=== PATIENT | male | born 1935 | race Caucasian/White ===

== ENCOUNTER 2018-01-22 05:01 | Inpatient (IN) | payer MEDICARE ==
[2018-01-18 16:44] LABS: BASOPHILS # (AUTO) 0.1 (0.0-0.1); BASOPHILS % 0.8 % (0.0-1.0); HEMATOCRIT 35.8 % (38.2-49.6); HEMOGLOBIN 12.2 g/dL (14.0-18.0); LYMPHOCYTES # (AUTO) 1.6 (1.0-3.2); LYMPHOCYTES % 18.6 % (18.0-39.1); MEAN CORPUSCULAR HEMOGLOBIN 32.8 pg (28-32); MEAN CORPUSCULAR HGB CONC 34.1 g/dL (31-35); MEAN CORPUSCULAR VOLUME 96.2 fL (81-99); MONOCYTES % 12.3 % (4.4-11.3); NEUTROPHILS # (AUTO) 5.7 (2.1-6.9); NEUTROPHILS % 67.6 % (38.7-80.0); PLATELET COUNT 130 x10e3/uL (140-360); RED BLOOD COUNT 3.72 x10e6/uL (4.3-5.7); RED CELL DISTRIBUTION WIDTH 15.9 % (11.7-14.4)
[2018-01-18 16:56] LABS: ANION GAP 16.5 mmol/L (8-16); CREATININE, SERUM 1.88 mg/dL (0.72-1.25); POTASSIUM 3.5 mmol/L (3.5-5.1)
--- NOTE | 2018-01-18 17:19 | Diagnostic Imaging Report ---
PROCEDURE: Frontal and lateral views of the chest. COMPARISON: Chest radiograph from 02/07/2017 INDICATIONS: PREOP CXR FINDINGS: Lines/tubes: Left chest wall biventricular pacemaker with leads in the expected positions. Lungs: Nonspecific basilar opacities which appear stable. Pleura: Calcified pleural plaques, unchanged. A small right pleural effusion may be present. Heart and mediastinum: Mild cardiomegaly, unchanged. Bones: No acute bony abnormality. IMPRESSION: Mild cardiomegaly. Nonspecific basilar opacities which could represent edema or scarring. A small right pleural effusion may be present. Calcified pleural plaques are unchanged. Dictated by: Nehemiah Perdue M.D. on 01/18/2018 at 17:24 Electronically approved by: Nehemiah Perdue M.D. on 01/18/2018 at 17:24
[~2018-01-22] VITALS: Ht 188 cm; Wt 86.2 kg
[2018-01-22] VITALS (30 sets, daily range): BP systolic 80–120; BP diastolic 55–71
[~2018-01-22 05:01] MED LIST: ALDACTONE25 MG PO; ALLOPURINOL100 MG PO; AMBIEN10 MG PO; AMILORIDE HCL-1 EACH PO; ASPIRIN EC81 MG PO; CARVEDILOL12.5 MG PO; CITALOPRAM HBR10 MG PO; COUMADIN3 MG PO; FERROUS SULFAT325 M1 PO; FEXOFENADINE H180 MG PO; FISH OIL 1,0001 EAC2 PO; FLOMAX0.4 MG PO; GABAPENTIN600 MG PO; LANOXIN125 MCG PO; LASIX40 MG PO; LEVAQUIN500 MG PO; LOSARTAN POTASS50 MG PO; MEDROL4 MG/DOSE-; METOLAZONE5 MG PO; MSM1000 M1 PO; PACERONE200 MG PO; POTASSIUM CHLO20 ME1 PO; SIMVASTATIN40 MG PO; VITAMIN D1000 UNI1 PO; [UNRECOGNIZED DRUG - OTHER] PO
[2018-01-22 06:13] LABS: INR 1.66; PROTHROMBIN TIME 18.4 seconds (11.9-14.5)
[2018-01-22] MEDS ORDERED: CEFTRIAXONE SOD 1 GM VIAL ONE (06:37)
[2018-01-22] MEDS ORDERED: GENTAMICIN 80MG/NS 100 ML 200 ML IV ONE (06:37)
[2018-01-22] MEDS ORDERED: IOPAMIDOL 300MG/ML 50ML INFUS..BTL IV ONE (06:55)
[2018-01-22] MEDS ORDERED: FENTANYL CITRATE/PF 100MCG/2 ML INJ ONE ×2 (09:31→15:54)
[2018-01-22] MEDS ORDERED: DIPHENHYDRAMINE HCL 25 MG CAP PO PRN (09:45)
[2018-01-22 10:31] LABS: HEMATOCRIT 24.8 % (38.2-49.6); HEMOGLOBIN 8.2 g/dL (14.0-18.0)
[2018-01-22 11:40] LABS: BASOPHILS % 0.5 % (0.0-1.0); HEMATOCRIT 21.5 % (38.2-49.6); LYMPHOCYTES # (AUTO) 0.7 (1.0-3.2); LYMPHOCYTES % 9.1 % (18.0-39.1); MEAN CORPUSCULAR HEMOGLOBIN 32.4 pg (28-32); MEAN CORPUSCULAR HGB CONC 32.6 g/dL (31-35); MEAN CORPUSCULAR VOLUME 99.5 fL (81-99); MONOCYTES # (AUTO) 0.3 (0.2-0.8); MONOCYTES % 3.6 % (4.4-11.3); NEUTROPHILS % 85.9 % (38.7-80.0); PLATELET COUNT 113 x10e3/uL (140-360); RED BLOOD COUNT 2.16 x10e6/uL (4.3-5.7); RED CELL DISTRIBUTION WIDTH 16.1 % (11.7-14.4)
[2018-01-22 11:48] LABS: INR 2.3
[2018-01-22 11:50] LABS: PROTHROMBIN TIME 23.8 seconds (11.9-14.5)
[2018-01-22] MEDS ORDERED: SODIUM CHLORIDE 0.9% 500ML 500 ML ONE ×2 (11:51→13:43)
[2018-01-22] MEDS ORDERED: PHYTONADIONE 10 MG/ML AMP SQ ONE (13:45)
--- NOTE | 2018-01-22 15:20 | Operative Report ---
DATE OF PROCEDURE: January 22, 2018 PREOPERATIVE DIAGNOSES 1. Severe obstructive BPH. 2. Recurrent urinary tract infections. POSTOPERATIVE DIAGNOSES 1. Severe obstructive BPH. 2. Recurrent urinary tract infections. PROCEDURES PERFORMED 1. Cystourethroscopy with bilateral ureteral catheterization and retrograde ureteropyelography (separate procedure performed for the urinary tract infection). 2. Interpretation of retrograde ureteropyelography. 3. Supervision of fluoroscopy. No radiologist present. 4. Cystourethroscopy with transurethral resection of the prostate utilizing the PlasmaBand. ANESTHESIA: General. ESTIMATED BLOOD LOSS: Inestimable. COMPLICATIONS: Persistent bleeding at the end of the procedure. CLINICAL SUMMARY: Merlin Cutler is an 82-year-old man with longstanding urological issues. The patient has had previous prostate biopsies at [facility] which were supposedly negative for cancer. The patient has had recurrent urinary tract infections. He has had decreased urinary force of stream with postvoid residuals larger than 100 mL. He has failed medical therapy and has elected to proceed with transurethral resection. He is aware of the risks of bleeding, infection, injury to adjacent structures, need for additional procedures and elected to proceed. In preparation for the procedure, the patient stopped his warfarin 7 days ago. OPERATIVE PROCEDURE IN DETAIL: Informed consent was verified. Merlin Cutler was properly identified, taken to the operating room, and placed on the operating table in supine position. Anesthesia was uneventfully begun. The patient was then carefully and gently repositioned in the dorsal lithotomy position with all pressure points well padded. His genitalia were prepared and draped in the usual sterile fashion. A 22.5-Chilean cystoscope sheath with a visual obturator in place was atraumatically inserted into the patient's urethra. It was guided down the unremarkable urethra through the prostate bed that was significant for trilobar prostatic hypertrophy with an intravesical median lobe and visual obstruction. Grade 2 to 3 trabeculations were noted. There were no suspicious lesions. There were no tumors. There were no stones. An 8-Chilean catheter was used to cannulate each ureter, and retrograde ureteropyelography was performed. Interpretation of retrograde ureteropyelography: Contrast was instilled in retrograde fashion bilaterally. There was J-hooking noted bilaterally. Both ureteral orifices were displaced cephalad and laterally. This is, of course, the result of large BPH pushing the bladder in a cephalad direction. There was no hydronephrosis. There was ureteral tortuosity present. Unobstructed drainage was observed fluoroscopically, although drainage from both upper collecting systems appeared to be slower than normal. This may be attributed to the partial ureteral obstruction caused by the thickened bladder. We atraumatically placed with a visual obturator the continuous-flow resectoscope sheath and utilized the bipolar saline TURP set and utilized the PlasmaBand electrode. We proceeded with performing a transurethral resection of the prostate. We first resected the median lobe, taking care to avoid injury to the ureteral orifices. We then resected both lateral lobes from the bladder neck to but never past the verumontanum. Resection was carried out down to the surgical capsule in most parts of the prostate. It seemed as we were nearing the end of our resection, there seemed to be more bleeding than one would expect normally. There were no specific blood vessels that were bleeding, but there was a generalized ooze from the entire prostatic fossa. We tried multiple maneuvers including increasing the electrocautery and trying to coagulate in a systematic fashion the prostate bed, but this it did not stop the bleeding. Therefore, I made the decision to end the procedure at this point following evacuation of prostate chips to the best of my ability with the current bleeding. I tried to ensure that all prostate chips were removed. A 24-Chilean hematuria catheter was then placed, and 60 mL of water were placed into the 30-mL balloon. Continuous irrigation was begun. Manual irrigation was performed repeatedly. There was no clotting of the efflux, and I did not obtain any additional chips, but the bleeding appeared to be too significant to allow the patient to be discharged. We will, therefore, plan to admit the patient on continuous bladder irrigation. We will have the patient on antibiotics and analgesics. We will have the nurses manually irrigate the catheter as needed. We also will check the patient's blood count in the recovery room and make further assessments and plans following that data. The prostate chips were sent for histopathological analysis. Job#: [id number] cc:MORGAN HENAO MD
[2018-01-22] MEDS ORDERED: PHYTONADIONE 10 MG/ML AMP SQ SCH (18:00)
[2018-01-22] MEDS ORDERED: ONDANSETRON HCL INJ 2 MG/ML VIAL ONE (18:18)
[2018-01-22] MEDS ORDERED: SEVOFLURANE INHAL SOLN 250 ML PEN BTL ONE (18:18)
[2018-01-22] MEDS ORDERED: PHENYLEPHRINE HCL 1% 10 MG/ML VIAL ONE (18:18)
[2018-01-22] MEDS ORDERED: EPHEDRINE SULFATE INJ 50 MG/10 ML SYR ONE (18:18)
[2018-01-22] MEDS ORDERED: ETOMIDATE 2 MG/ML 10 ML INJ IV ONE (18:18)
[2018-01-22] MEDS ORDERED: LIDOCAINE HCL 2% LOCAL INJ 5 ML SDV VIAL INJ ONE (18:18)
[2018-01-22] MEDS: DOCUSATE SODIUM 100 MG CAP PO SCH (19:06)
[2018-01-22] MEDS: D5.45%NS/KCL 20MEQ 1,000 ML IV SCH ×2 (19:06→19:17)
[2018-01-22] MEDS ORDERED: SODIUM CHLORIDE 0.9% 250ML 250 ML ONE (19:45)
[2018-01-22 23:47] LABS: BASOPHILS % 0.1 % (0.0-1.0); HEMATOCRIT 25.5 % (38.2-49.6); HEMOGLOBIN 8.5 g/dL (14.0-18.0); LYMPHOCYTES # (AUTO) 0.9 (1.0-3.2); LYMPHOCYTES % 7.6 % (18.0-39.1); MEAN CORPUSCULAR HEMOGLOBIN 30.7 pg (28-32); MEAN CORPUSCULAR HGB CONC 33.3 g/dL (31-35); MEAN CORPUSCULAR VOLUME 92.1 fL (81-99); MONOCYTES % 8.5 % (4.4-11.3); NEUTROPHILS # (AUTO) 9.4 (2.1-6.9); PLATELET COUNT 121 x10e3/uL (140-360); RED BLOOD COUNT 2.77 x10e6/uL (4.3-5.7); RED CELL DISTRIBUTION WIDTH 17.2 % (11.7-14.4)
[2018-01-22 23:59] LABS: INR 1.61
[2018-01-23] VITALS (91 sets, daily range): BP systolic 77–132; BP diastolic 37–89
[2018-01-23] LABS: PARTIAL THROMBOPLASTIN TIME 32.4 seconds (23.8-35.5)
[2018-01-23 00:07] LABS: ALBUMIN 3.1 g/dL (3.5-5.0); ALBUMIN/GLOBULIN RATIO 1.6 (0.8-2.0); ANION GAP 12.8 mmol/L (8-16); CALCIUM 7.8 mg/dL (8.4-10.2); CREATININE, SERUM 1.53 mg/dL (0.72-1.25); MAGNESIUM 1.8 MG/DL (1.3-2.1); POTASSIUM 4.8 mmol/L (3.5-5.1)
[2018-01-23] MEDS: ZOLPIDEM TARTRATE 5 MG TAB PO PRN ×2 (00:45→22:00)
[2018-01-23] MEDS: CALCIUM CARBONATE 500 MG CHEWABLE TABS PO SCH ×4 (00:45→22:00)
[2018-01-23] MEDS: D5.45%NS/KCL 20MEQ 1,000 ML IV SCH (03:25)
[2018-01-23 05:43] LABS: BASOPHILS % 0.2 % (0.0-1.0); HEMATOCRIT 24.2 % (38.2-49.6); HEMOGLOBIN 7.9 g/dL (14.0-18.0); LYMPHOCYTES # (AUTO) 1.2 (1.0-3.2); LYMPHOCYTES % 10.6 % (18.0-39.1); MEAN CORPUSCULAR HEMOGLOBIN 30.5 pg (28-32); MEAN CORPUSCULAR HGB CONC 32.6 g/dL (31-35); MEAN CORPUSCULAR VOLUME 93.4 fL (81-99); MONOCYTES # (AUTO) 1.3 (0.2-0.8); MONOCYTES % 11.3 % (4.4-11.3); NEUTROPHILS # (AUTO) 8.6 (2.1-6.9); NEUTROPHILS % 77.2 % (38.7-80.0); PLATELET COUNT 105 x10e3/uL (140-360); RED BLOOD COUNT 2.59 x10e6/uL (4.3-5.7); RED CELL DISTRIBUTION WIDTH 17.4 % (11.7-14.4)
[2018-01-23 06:12] LABS: ANION GAP 11.1 mmol/L (8-16); CALCIUM 7.8 mg/dL (8.4-10.2); CREATININE, SERUM 1.45 mg/dL (0.72-1.25); POTASSIUM 5.1 mmol/L (3.5-5.1)
[2018-01-23] MEDS: DOCUSATE SODIUM 100 MG CAP PO SCH ×2 (08:15→16:00)
[2018-01-23] MEDS: CEFTRIAXONE SOD 1 GM VIAL IV SCH (08:15)
[2018-01-23] MEDS: DEXTROSE 5%/0.45% SOD CHL 1,000 ML IV SCH ×2 (08:36→16:00)
--- NOTE | 2018-01-23 09:58 | Consultation ---
DATE OF CONSULTATION: January 23, 2018 CARDIOLOGY CONSULTATION REQUESTING PHYSICIAN: Dr. Arteaga REASON FOR CONSULTATION: CAD with ICD. HPI: This is a pleasant, 82-year-old male that presented status post TURP. He has a history of CAD with biventricular ICD, and cardiology was consulted for management. He denied any chest pain, any palpitations, any dizziness, any diaphoresis or headache. PAST MEDICAL HISTORY: CAD, COPD, tremors, Afib, hyperlipidemia, depression, gout, BPH, CKD, cardiomyopathy, systolic CHF, and anemia. PAST SURGICAL HISTORY: Biventricular ICD placement. 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 Recent transurethral resection of the prostate. FAMILY HISTORY: Positive for CAD. SOCIAL HISTORY: No smoking. No drinking. Lives at home with family. MEDICATIONS: See med list. ALLERGIES: HE IS ALLERGIC TO OFELIA INHIBITOR. REVIEW OF SYSTEMS: Negative except those mentioned above. He is status post TURP. PHYSICAL EXAMINATION VITAL SIGNS: Temperature 98, heart rate 80, blood pressure 100/63, respirations 16. Oxygen saturation 97% on room air. GENERAL: He is awake, alert and oriented times 3. HEENT: Mucous membranes are moist. NECK: Supple. LUNGS: Bilaterally clear to auscultation. CARDIOVASCULAR: S1 and S2 present but irregular. ABDOMEN: Soft. NEUROLOGIC: Intact. EXTREMITIES: No edema. LABORATORY DATA: Sodium 146, potassium 5.1, chloride 108, CO2 26. BUN 27, creatinine 1.45. Glucose 153. White blood cells 11.1. Hemoglobin 7.9. Hematocrit 24.2. Platelets 105. PT 18.0, PTT 32.4, INR 1.61. IMPRESSION 1. Status post transurethral resection of the prostate. 2. History of left ventricular dysfunction. 3. History of biventricular implantable cardioverter-defibrillator. 4. Chronic kidney disease. 5. Anemia. 6. History of myocardial infarction and coronary artery disease. 7. Hypotension. ASSESSMENT AND PLAN 1. He had a TURP done yesterday, and he is recovering good in ICU with continuous bladder irrigation. 2. He had an echo done last year with ejection fraction 15% to 20% with severe LV dysfunction. We will go ahead and get another echocardiogram to reassess the LV function. 3. He recently had his [employer] biventricular ICD interrogated with good function. 4. His potassium is 5.1 today. Will go ahead and remove the potassium from the IV fluids. 5. Hemoglobin is 7.9. Will keep an eye on his H and H and hold his blood pressure medication for now. 6. Further cardiac workup pending clinical course. Thank you for this consultation. Dictated by Garcia Kiran NP. Job#: [id number]
[2018-01-23] MEDS ORDERED: PHYTONADIONE 10 MG/ML AMP SQ ONE (10:35)
[2018-01-23] MEDS ORDERED: FUROSEMIDE INJ 10 MG/ML 4 ML VIAL IV ONE (18:00)
[2018-01-24] VITALS (50 sets, daily range): BP systolic 86–129; BP diastolic 44–94
[2018-01-24] MEDS: DEXTROSE 5%/0.45% SOD CHL 1,000 ML IV SCH ×3 (02:42→15:39)
[2018-01-24 05:22] LABS: BASOPHILS # (AUTO) 0.1 (0.0-0.1); BASOPHILS % 0.5 % (0.0-1.0); HEMATOCRIT 24.2 % (38.2-49.6); LYMPHOCYTES # (AUTO) 1.9 (1.0-3.2); MEAN CORPUSCULAR HEMOGLOBIN 31.1 pg (28-32); MEAN CORPUSCULAR HGB CONC 33.1 g/dL (31-35); MEAN CORPUSCULAR VOLUME 94.2 fL (81-99); MONOCYTES # (AUTO) 1.4 (0.2-0.8); MONOCYTES % 11.4 % (4.4-11.3); NEUTROPHILS # (AUTO) 8.5 (2.1-6.9); NEUTROPHILS % 71.6 % (38.7-80.0); PLATELET COUNT 100 x10e3/uL (140-360); RED BLOOD COUNT 2.57 x10e6/uL (4.3-5.7); RED CELL DISTRIBUTION WIDTH 17.2 % (11.7-14.4)
[2018-01-24 05:40] LABS: INR 1.33; PROTHROMBIN TIME 15.5 seconds (11.9-14.5)
[2018-01-24 05:41] LABS: PARTIAL THROMBOPLASTIN TIME 30.5 seconds (23.8-35.5)
[2018-01-24 05:50] LABS: ANION GAP 12.1 mmol/L (8-16); CALCIUM 8.3 mg/dL (8.4-10.2); CREATININE, SERUM 1.26 mg/dL (0.72-1.25); POTASSIUM 4.1 mmol/L (3.5-5.1)
[2018-01-24] MEDS: FERROUS SULFATE 325 MG TAB PO SCH (09:00)
[2018-01-24] MEDS: CALCIUM CARBONATE 500 MG CHEWABLE TABS PO SCH ×3 (09:00→21:09)
[2018-01-24] MEDS: DIGOXIN 0.125 MG TAB PO SCH (09:00)
[2018-01-24] MEDS ORDERED: FERROUS SULFATE 325 MG TAB PO SCH (09:00)
[2018-01-24] MEDS: FUROSEMIDE 40 MG TAB PO SCH ×2 (09:00→16:36)
[2018-01-24] MEDS: CEFTRIAXONE SOD 1 GM VIAL IV SCH (09:00)
[2018-01-24] MEDS ORDERED: SIMVASTATIN 40 MG TAB PO SCH (09:00)
[2018-01-24] MEDS: DOCUSATE SODIUM 100 MG CAP PO SCH ×2 (09:00→16:36)
[2018-01-24] MEDS ORDERED: DIGOXIN INJ 0.25 MG/ML 2 ML AMP IV ONE (11:45)
--- NOTE | 2018-01-24 14:13 | Diagnostic Imaging Report ---
PROCEDURE: CHEST SINGLE (PORTABLE) COMPARISON: Patients [facility], DX, CHEST SINGLE (PORTABLE), 02/07/2017, 16:55. [facility], DX, CHEST 2 VIEWS, 01/18/2018, 16:19. INDICATIONS: SHORTNESS OF BREATH FINDINGS: LUNGS/PLEURA: A small right pleural effusion has increased in size with underlying airspace opacities either atelectasis or pneumonia. The left lateral costophrenic angle is blunted suggestive of effusion. No pneumothorax. The lungs are hyperinflated at baseline. A central left upper lobe opacity grossly stable suggestive of calcified pleural plaque. The pulmonary arteries are enlarged consistent with pulmonary artery hypertension. There is mild left basilar atelectasis. No interstitial edema. HEART \T\ MEDIASTINUM: Stable cardiomegaly. Pacemaker/defibrillator wires are intact.. BONES \T\ SOFT TISSUES: No acute findings. CONCLUSION: 1. Enlarging right pleural effusion. New small left pleural effusion. 2. Stable cardiomegaly. No evidence of CHF. 3. Enlarged pulmonary arteries consistent with pulmonary artery hypertension. Dictated by: Rickie Kaye M.D. on 01/24/2018 at 14:17 Electronically approved by: Rickie Kaye M.D. on 01/24/2018 at 14:17
[2018-01-24] MEDS ORDERED: FUROSEMIDE INJ 10 MG/ML 2 ML VIAL IV ONE ×2 (14:30→15:30)
[2018-01-24 15:25] LABS: ABG PCO2 33 mmHg (41-51); ABG PH 7.45 (7.31-7.41); ABG PO2 51 mmHg (80-105)
[2018-01-24 15:26] LABS: ABG HCO3 23 mmol/L (23-28)
--- NOTE | 2018-01-24 17:52 | Diagnostic Imaging Report ---
PROCEDURE:US CHEST (INCL MEDIASTINUM) COMPARISON:Patients [facility], DX, CHEST SINGLE (PORTABLE), 01/24/2018, 13:39. INDICATIONS:ENLARGING PLEURAL EFFUSION FINDINGS: Moderate sized right and left pleural effusions with bibasilar atelectasis. No septations or loculations are appreciated. IMPRESSION: As above. Dictated by: Rickie Kaye M.D. on 01/24/2018 at 17:58 Electronically approved by: Rickie Kaye M.D. on 01/24/2018 at 17:58
[2018-01-24] MEDS ORDERED: METOLAZONE 5 MG TAB PO ONE (18:30)
--- NOTE | 2018-01-24 19:57 | Consultation ---
DATE OF CONSULTATION: PULMONARY CONSULTATION This is a patient of Dr. Brien Arteaga, Dr. Canas and Dr. Dc Freire. This charming, but unfortunate, 82-year-old gentleman underwent TURP on January 21 for recurrent urinary infections and outlet obstruction. The procedure was apparently complicated by some bleeding. He was short of breath following the procedure. He has a history of cardiomyopathy, history of chronic ischemia with NV and arrest in 1996. He has had a defibrillator, which has been firing frequently. In the past, he has a history of coronary disease, COPD and atrial fibrillation. HE IS ALLERGIC TO OFELIA INHIBITORS. His medications have included allopurinol, aspirin, Coreg, vitamin D, Cherry, metolazone, potassium, Flomax and warfarin as well as Ambien. Ex-smoker, smoked a pack a day for many years, but quit 54 years ago. 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 He has had amputation of 1 finger. Born in , [place]. PHYSICAL EXAMINATION GENERAL: He is a well-developed, white male, looking his stated age. VITALS: Temperature 98.3, pulse 90, respirations 18, blood pressure 113/70. HEAD: Normocephalic and atraumatic. EYES: The extraocular movements are intact. LUNGS: Bilateral rales. Dullness at left base. HEART: Regular rhythm. ABDOMEN: Nontender. EXTREMITIES: Stasis changes. IMPRESSION: Congestive heart failure. PLAN: Diuresis. Resume metolazone. BiPAP if needed. Possible thoracentesis. Thank you for this kind referral. Job#: [id number]
[2018-01-24] MEDS: SIMVASTATIN 40 MG TAB PO SCH (21:09)
[2018-01-24] MEDS: ZOLPIDEM TARTRATE 5 MG TAB PO PRN (21:09)
[2018-01-25] VITALS (8 sets, daily range): BP systolic 93–109; BP diastolic 56–63
[2018-01-25] MEDS: DEXTROSE 5%/0.45% SOD CHL 1,000 ML IV SCH (00:30)
[2018-01-25] MEDS: ACETAMINOPHEN/CODEINE 300MG - 30MG TAB PO PRN (00:41)
[2018-01-25] MEDS: GABAPENTIN 300 MG CAP PO SCH ×4 (04:00→21:18)
[2018-01-25 04:41] LABS: BASOPHILS # (AUTO) 0.1 (0.0-0.1); BASOPHILS % 0.5 % (0.0-1.0); HEMATOCRIT 24.1 % (38.2-49.6); HEMOGLOBIN 7.8 g/dL (14.0-18.0); LYMPHOCYTES # (AUTO) 1.6 (1.0-3.2); LYMPHOCYTES % 14.9 % (18.0-39.1); MEAN CORPUSCULAR HEMOGLOBIN 30.4 pg (28-32); MEAN CORPUSCULAR HGB CONC 32.4 g/dL (31-35); MEAN CORPUSCULAR VOLUME 93.8 fL (81-99); MONOCYTES # (AUTO) 1.2 (0.2-0.8); MONOCYTES % 11.6 % (4.4-11.3); NEUTROPHILS # (AUTO) 7.6 (2.1-6.9); NEUTROPHILS % 72.5 % (38.7-80.0); PLATELET COUNT 117 x10e3/uL (140-360); RED BLOOD COUNT 2.57 x10e6/uL (4.3-5.7); RED CELL DISTRIBUTION WIDTH 16.7 % (11.7-14.4)
[2018-01-25 04:58] LABS: INR 1.35; PROTHROMBIN TIME 15.7 seconds (11.9-14.5)
[2018-01-25 05:11] LABS: ANION GAP 12.9 mmol/L (8-16); CALCIUM 8.7 mg/dL (8.4-10.2); CREATININE, SERUM 1.37 mg/dL (0.72-1.25)
[2018-01-25 05:21] LABS: POTASSIUM 2.9 mmol/L (3.5-5.1)
[2018-01-25] MEDS ORDERED: POTASSIUM CHLORIDE 20 MEQ TAB CR PO STA (05:27)
[2018-01-25] MEDS: CEFTRIAXONE SOD 1 GM VIAL IV SCH (07:30)
[2018-01-25] MEDS: DOCUSATE SODIUM 100 MG CAP PO SCH ×2 (09:00→17:15)
[2018-01-25] MEDS: METOLAZONE 5 MG TAB PO SCH (09:00)
[2018-01-25] MEDS: FUROSEMIDE 40 MG TAB PO SCH ×2 (09:00→17:16)
[2018-01-25] MEDS: FERROUS SULFATE 325 MG TAB PO SCH (09:00)
[2018-01-25] MEDS: CALCIUM CARBONATE 500 MG CHEWABLE TABS PO SCH ×3 (09:00→21:18)
[2018-01-25] MEDS: DIGOXIN 0.125 MG TAB PO SCH (09:00)
[2018-01-25] MEDS ORDERED: POTASSIUM CHLORIDE 20 MEQ TAB CR PO SCH (09:30)
--- NOTE | 2018-01-25 14:05 | Diagnostic Imaging Report ---
PROCEDURE: ULTRASOUND GUIDED THORACENTESIS COMPARISON: None. INDICATIONS:pleural effusion FINDINGS: After informed consent was obtained, the patient was placed in the sitting position and preliminary ultrasound of the posterior chest identified a safe route into the right pleural effusion. The overlying skin was prepped and draped in usual sterile fashion. Lidocaine 1% was used for local anesthesia. Under ultrasound guidance, a 5 Filipino Yueh needle was advanced into the pleural fluid, the catheter was advanced off the needle and connected to gravity drainage with subsequent evacuation of 1000 cc gris-colored fluid. Sonographic imaging after thoracentesis showed essentially complete evacuation of pleural fluid. The catheter was removed and a sterile, occlusive dressing was applied. The patient tolerated the procedure well and there were no immediate post-procedural complications. A post-thoracentesis chest radiograph will be obtained. CONCLUSION: Uncomplicated ultrasound-guided right thoracentesis with removal of 1000 cc gris-colored fluid. Specimen was submitted for laboratory analysis as requested by the referring clinical team. Dictated by: Cornell Ribeiro M.D. on 01/25/2018 at 14:10 Electronically approved by: Cornell Ribeiro M.D. on 01/25/2018 at 14:10
--- NOTE | 2018-01-25 14:15 | Diagnostic Imaging Report ---
PROCEDURE: CHEST XRAY POST PROCEDURE COMPARISON: 01/24/2018. INDICATIONS: POST THORACENTESIS FINDINGS: See conclusion CONCLUSION: Interval right thoracentesis with near-complete evacuation of right pleural effusion. No pneumothorax. Trace left pleural effusion persists. Otherwise stable appearance of the heart and lungs with cardiomegaly and enlargement of the central pulmonary arteries suggestive of pulmonary artery hypertension. Dictated by: Cornell Ribeiro M.D. on 01/25/2018 at 14:20 Electronically approved by: Cornell Ribeiro M.D. on 01/25/2018 at 14:20
[2018-01-25] MEDS: POTASSIUM CHLORIDE 10 MEQ TABCR PO SCH (17:15)
[2018-01-25] MEDS: ZOLPIDEM TARTRATE 5 MG TAB PO PRN (21:18)
[2018-01-25] MEDS: SIMVASTATIN 40 MG TAB PO SCH (21:18)
[2018-01-26] VITALS (7 sets, daily range): BP systolic 95–113; BP diastolic 55–78
[2018-01-26 06:07] LABS: BASOPHILS % 0.5 % (0.0-1.0); HEMATOCRIT 25.5 % (38.2-49.6); HEMOGLOBIN 8.4 g/dL (14.0-18.0); LYMPHOCYTES # (AUTO) 1.7 (1.0-3.2); LYMPHOCYTES % 20.5 % (18.0-39.1); MEAN CORPUSCULAR HEMOGLOBIN 31.3 pg (28-32); MEAN CORPUSCULAR HGB CONC 32.9 g/dL (31-35); MEAN CORPUSCULAR VOLUME 95.1 fL (81-99); MONOCYTES # (AUTO) 0.9 (0.2-0.8); MONOCYTES % 11.1 % (4.4-11.3); NEUTROPHILS # (AUTO) 5.5 (2.1-6.9); NEUTROPHILS % 67.1 % (38.7-80.0); PLATELET COUNT 109 x10e3/uL (140-360); RED BLOOD COUNT 2.68 x10e6/uL (4.3-5.7)
[2018-01-26 06:26] LABS: ANION GAP 11.8 mmol/L (8-16); CALCIUM 8.8 mg/dL (8.4-10.2); CREATININE, SERUM 1.52 mg/dL (0.72-1.25)
[2018-01-26 06:35] LABS: POTASSIUM 2.8 mmol/L (3.5-5.1)
[2018-01-26] MEDS ORDERED: POTASSIUM CHLORIDE 20 MEQ TAB CR PO STA (06:38)
[2018-01-26] MEDS: POTASSIUM CHLORIDE 10 MEQ TABCR PO SCH ×2 (07:49→16:45)
[2018-01-26] MEDS: METOLAZONE 5 MG TAB PO SCH (09:00)
[2018-01-26] MEDS: DIGOXIN 0.125 MG TAB PO SCH (09:06)
[2018-01-26] MEDS: FERROUS SULFATE 325 MG TAB PO SCH (09:06)
[2018-01-26] MEDS: DOCUSATE SODIUM 100 MG CAP PO SCH ×2 (09:06→16:45)
[2018-01-26] MEDS: CEFTRIAXONE SOD 1 GM VIAL IV SCH (09:06)
[2018-01-26] MEDS: FUROSEMIDE 40 MG TAB PO SCH ×2 (09:06→16:45)
[2018-01-26] MEDS: CALCIUM CARBONATE 500 MG CHEWABLE TABS PO SCH ×3 (09:07→21:00)
[2018-01-26] MEDS: GABAPENTIN 300 MG CAP PO SCH ×3 (09:07→20:35)
[2018-01-26] MEDS ORDERED: POTASSIUM CHLORIDE 20 MEQ TAB CR PO ONE (10:30)
[2018-01-26 13:17] LABS: BODY FLUID APPEARANCE SL.CLOUDY; BODY FLUID COLOR STRAW; BODY FLUID TYPE PLEURAL
[2018-01-26 13:33] LABS: RBC,BODY FLUID 985 cells/uL; WBC,BODY FLUID 292 cells/uL
[2018-01-26] MEDS: ACETAMINOPHEN/CODEINE 300MG - 30MG TAB PO PRN (14:16)
[2018-01-26 14:27] LABS: LYMPHOCYTES,BODY FLUID 83 %; MONO/MACROPHG,BODY FLUID 7 %; NEUTROPHILS,BODY FLUID 10 %
[2018-01-26] MEDS: SIMVASTATIN 40 MG TAB PO SCH (21:00)
[2018-01-26] MEDS: ZOLPIDEM TARTRATE 5 MG TAB PO PRN (21:18)
[2018-01-27] VITALS: BP 90/52
[2018-01-27] MEDS: ACETAMINOPHEN/CODEINE 300MG - 30MG TAB PO PRN (00:02)
[2018-01-27 04:00] VITALS: BP 99/55
[2018-01-27 05:54] LABS: BASOPHILS % 0.4 % (0.0-1.0); EOSINOPHILS % 0.1 % (0.0-6.0); HEMATOCRIT 25.7 % (38.2-49.6); HEMOGLOBIN 8.3 g/dL (14.0-18.0); LYMPHOCYTES # (AUTO) 1.7 (1.0-3.2); LYMPHOCYTES % 17.6 % (18.0-39.1); MEAN CORPUSCULAR HEMOGLOBIN 31.2 pg (28-32); MEAN CORPUSCULAR HGB CONC 32.3 g/dL (31-35); MEAN CORPUSCULAR VOLUME 96.6 fL (81-99); MONOCYTES # (AUTO) 1.2 (0.2-0.8); MONOCYTES % 12.3 % (4.4-11.3); NEUTROPHILS # (AUTO) 6.8 (2.1-6.9); NEUTROPHILS % 68.7 % (38.7-80.0); PLATELET COUNT 116 x10e3/uL (140-360); RED BLOOD COUNT 2.66 x10e6/uL (4.3-5.7); RED CELL DISTRIBUTION WIDTH 17.4 % (11.7-14.4)
[2018-01-27 06:14] LABS: ANION GAP 13.8 mmol/L (8-16); CALCIUM 8.8 mg/dL (8.4-10.2); CREATININE, SERUM 1.61 mg/dL (0.72-1.25)
[2018-01-27 06:15] LABS: POTASSIUM 2.8 mmol/L (3.5-5.1)
[2018-01-27] MEDS ORDERED: POTASSIUM CHLORIDE 20MEQ/100ML 200 ML IV ONE (06:30)
[2018-01-27] MEDS ORDERED: POTASSIUM CHLORIDE 20MEQ/100ML 100 ML IV ONE ×2 (06:45→08:45)
[2018-01-27] MEDS ORDERED: SODIUM CHLORIDE 0.9% 250ML 250 ML ONE ×2 (07:13→12:20)
[2018-01-27] MEDS: METOLAZONE 5 MG TAB PO SCH (08:27)
[2018-01-27] MEDS: POTASSIUM CHLORIDE 10 MEQ TABCR PO SCH ×2 (08:27→16:35)
[2018-01-27] MEDS: DIGOXIN 0.125 MG TAB PO SCH (08:42)
[2018-01-27] MEDS: FERROUS SULFATE 325 MG TAB PO SCH (08:42)
[2018-01-27] MEDS: CEFTRIAXONE SOD 1 GM VIAL IV SCH (08:42)
[2018-01-27] MEDS: CALCIUM CARBONATE 500 MG CHEWABLE TABS PO SCH ×3 (08:42→21:12)
[2018-01-27] MEDS: DOCUSATE SODIUM 100 MG CAP PO SCH ×2 (08:42→16:38)
[2018-01-27] MEDS: GABAPENTIN 300 MG CAP PO SCH ×3 (08:42→21:12)
[2018-01-27] MEDS: FUROSEMIDE 40 MG TAB PO SCH ×2 (08:42→16:38)
[2018-01-27 10:37] VITALS: BP 90/53
[2018-01-27] MEDS ORDERED: POTASSIUM CHLORIDE 20 MEQ TAB CR PO ONE (11:30)
[2018-01-27] MEDS ORDERED: POTASSIUM CHLORIDE 20 MEQ TAB CR PO SCH (12:00)
[2018-01-27 16:54] VITALS: BP 93/55
[2018-01-27 20:00] VITALS: BP 95/63
[2018-01-27] MEDS: SIMVASTATIN 40 MG TAB PO SCH (21:12)
[2018-01-27] MEDS: ZOLPIDEM TARTRATE 5 MG TAB PO PRN (21:18)
[2018-01-28] VITALS (8 sets, daily range): BP systolic 93–106; BP diastolic 50–58
[2018-01-28 05:05] LABS: BASOPHILS % 0.4 % (0.0-1.0); EOSINOPHILS % 0.1 % (0.0-6.0); HEMOGLOBIN 8.3 g/dL (14.0-18.0); LYMPHOCYTES # (AUTO) 1.9 (1.0-3.2); LYMPHOCYTES % 21.2 % (18.0-39.1); MEAN CORPUSCULAR HEMOGLOBIN 30.6 pg (28-32); MEAN CORPUSCULAR HGB CONC 31.9 g/dL (31-35); MEAN CORPUSCULAR VOLUME 95.9 fL (81-99); MONOCYTES # (AUTO) 1.2 (0.2-0.8); MONOCYTES % 13.4 % (4.4-11.3); NEUTROPHILS # (AUTO) 5.7 (2.1-6.9); NEUTROPHILS % 63.8 % (38.7-80.0); PLATELET COUNT 119 x10e3/uL (140-360); RED BLOOD COUNT 2.71 x10e6/uL (4.3-5.7); RED CELL DISTRIBUTION WIDTH 17.4 % (11.7-14.4)
[2018-01-28 05:32] LABS: ANION GAP 12.8 mmol/L (8-16); CALCIUM 8.8 mg/dL (8.4-10.2); CREATININE, SERUM 1.42 mg/dL (0.72-1.25)
[2018-01-28 06:03] LABS: POTASSIUM 2.8 mmol/L (3.5-5.1)
[2018-01-28] MEDS ORDERED: POTASSIUM CHLORIDE 20 MEQ TAB CR PO ONE ×2 (06:40→10:45)
[2018-01-28] MEDS: FERROUS SULFATE 325 MG TAB PO SCH (08:40)
[2018-01-28] MEDS: FUROSEMIDE 40 MG TAB PO SCH ×2 (08:40→16:57)
[2018-01-28] MEDS: METOLAZONE 5 MG TAB PO SCH (08:40)
[2018-01-28] MEDS: GABAPENTIN 300 MG CAP PO SCH ×3 (08:40→21:52)
[2018-01-28] MEDS: POTASSIUM CHLORIDE 10 MEQ TABCR PO SCH ×2 (08:40→16:57)
[2018-01-28] MEDS: CEFTRIAXONE SOD 1 GM VIAL IV SCH (08:54)
[2018-01-28] MEDS: CALCIUM CARBONATE 500 MG CHEWABLE TABS PO SCH ×3 (08:54→21:52)
[2018-01-28] MEDS: DIGOXIN 0.125 MG TAB PO SCH (08:54)
[2018-01-28] MEDS: DOCUSATE SODIUM 100 MG CAP PO SCH ×2 (08:54→16:57)
[2018-01-28] MEDS: SIMVASTATIN 40 MG TAB PO SCH (21:52)
[2018-01-28] MEDS: ZOLPIDEM TARTRATE 5 MG TAB PO PRN (22:30)
[2018-01-29 00:40] VITALS: BP 102/58
[2018-01-29 01:15] VITALS: BP 102/58
[2018-01-29 04:00] VITALS: BP 95/64
[2018-01-29 05:26] LABS: BASOPHILS # (AUTO) 0.1 (0.0-0.1); BASOPHILS % 0.5 % (0.0-1.0); HEMATOCRIT 27.9 % (38.2-49.6); LYMPHOCYTES # (AUTO) 2.2 (1.0-3.2); LYMPHOCYTES % 21.8 % (18.0-39.1); MEAN CORPUSCULAR HEMOGLOBIN 30.7 pg (28-32); MEAN CORPUSCULAR HGB CONC 32.3 g/dL (31-35); MEAN CORPUSCULAR VOLUME 95.2 fL (81-99); MONOCYTES # (AUTO) 1.4 (0.2-0.8); MONOCYTES % 13.7 % (4.4-11.3); NEUTROPHILS # (AUTO) 6.4 (2.1-6.9); NEUTROPHILS % 62.7 % (38.7-80.0); PLATELET COUNT 154 x10e3/uL (140-360); RED BLOOD COUNT 2.93 x10e6/uL (4.3-5.7); RED CELL DISTRIBUTION WIDTH 17.3 % (11.7-14.4)
[2018-01-29 05:58] LABS: ALBUMIN 3.3 g/dL (3.5-5.0); ALBUMIN/GLOBULIN RATIO 1.1 (0.8-2.0); ANION GAP 15.8 mmol/L (8-16); CALCIUM 9.2 mg/dL (8.4-10.2); CREATININE, SERUM 1.46 mg/dL (0.72-1.25)
[2018-01-29 06:03] LABS: POTASSIUM 2.8 mmol/L (3.5-5.1)
[2018-01-29] MEDS ORDERED: POTASSIUM CHLORIDE 20 MEQ TAB CR PO NR ×2 (06:30→08:15)
[2018-01-29] MEDS: CEFTRIAXONE SOD 1 GM VIAL IV SCH (07:30)
[2018-01-29 07:58] VITALS: BP 97/52
[2018-01-29] MEDS: FERROUS SULFATE 325 MG TAB PO SCH (09:00)
[2018-01-29] MEDS: GABAPENTIN 300 MG CAP PO SCH (09:00)
[2018-01-29] MEDS: DOCUSATE SODIUM 100 MG CAP PO SCH (09:00)
[2018-01-29] MEDS: METOLAZONE 5 MG TAB PO SCH (09:00)
[2018-01-29] MEDS: FUROSEMIDE 40 MG TAB PO SCH (09:00)
[2018-01-29] MEDS ORDERED: POTASSIUM CHLORIDE 10 MEQ TABCR PO SCH (09:00)
[2018-01-29] MEDS: CALCIUM CARBONATE 500 MG CHEWABLE TABS PO SCH (09:00)
[2018-01-29] MEDS: DIGOXIN 0.125 MG TAB PO SCH (10:07)
[2018-01-29 12:19] VITALS: BP 95/60
[2018-01-29] MEDS ORDERED: WARFARIN SOD 3 MG TAB PO SCH (17:00)
== END 2018-01-29 15:09 | disposition home or self-care (01) | DRG 713 ==
LOC: OR 05:01 → PACU V 09:34 → ICU 17:25 → MED/SURG 01-24 17:11
PROVIDERS: ADMIT Internal Medicine; ATTEND Internal Medicine
PROC: 0VB08ZZ Excision of Prostate, Via Natural or Artificial Opening Endoscopic (ICD-10-PCS; principal; 2018-01-22 07:00)
PROC: 0W993ZX Drainage of Right Pleural Cavity, Percutaneous Approach, Diagnostic (ICD-10-PCS; 2018-01-25)
DX: N40.1 Benign prostatic hyperplasia with lower urinary tract symptoms (principal); I50.23 Acute on chronic systolic (congestive) heart failure; I13.0 Hypertensive heart and chronic kidney disease with heart failure and stage 1 through stage 4 chronic kidney disease, or unspecified chronic kidney disease; N18.3 Chronic kidney disease, stage 3 (moderate); N39.41 Urge incontinence; R39.14 Feeling of incomplete bladder emptying; R35.1 Nocturia; N50.0 Atrophy of testis; E29.1 Testicular hypofunction; Z87.442 Personal history of urinary calculi; I86.1 Scrotal varices; N32.81 Overactive bladder; I25.10 Atherosclerotic heart disease of native coronary artery without angina pectoris; Z95.810 Presence of automatic (implantable) cardiac defibrillator; J44.9 Chronic obstructive pulmonary disease, unspecified; D64.9 Anemia, unspecified; Z79.01 Long term (current) use of anticoagulants; D50.0 Iron deficiency anemia secondary to blood loss (chronic); G47.00 Insomnia, unspecified; E87.6 Hypokalemia
CPT/HCPCS: 32555; 36415; 36430; 36600; 71045; 71046; 74420; 74470; 76604; 80048; 80053; 82805; 83615; 83735; 84132; 84157; 85014; 85018; 85025; 85610; 85730; 86850; 86900; 86920; 87070; 87205; 88112; 88305; 89051; 93005; 93306; 96361; J0696; J1160; J1580; J1940; J2001; J2370; J2405; J3430; J3480; J7040; J7050; P9016; P9017; P9034

== ENCOUNTER → 2018-10-24 | Outpatient (CLI) | payer MEDICARE ==
[~2018-10-24] MED LIST changes: +REGADENOSON 0.4 MG/5 ML SYR IV ONE
--- NOTE | 2018-10-25 18:28 | Myoview Stress Test ---
DATE OF STUDY: 10/24/2018 10:12:00 Stress Test - Treadmill ONLY REASON FOR PROCEDURE: Congestive heart failure. STRESS SUMMARY: The patient underwent stress testing utilizing Lexiscan under the usual protocol. The patient's heart rate remained stable at 63 beats per minute at rest with mild increase to 75 beats per minute at stress. Blood pressure was 108/67 at rest and decreased to 102/67 at stress. The patient elicited no cardiac symptoms throughout the stress protocol. Baseline 12-lead electrocardiogram showed ventricular paced rhythm. There were no ST deviations or arrhythmias noted throughout the stress protocol. The patient received technetium-99m sestamibi at rest and stress. The images revealed a large, severe, fixed perfusion defect in the [id number]-mhdmly anterior apex, apical inferior and anteroseptal solo. Gated images revealed left ventricular ejection fraction less than 20%. CONCLUSIONS: 1. Normal clinical and hemodynamic Lexiscan stress test. 2. Inconclusive electrocardiogram stress test. 3. Abnormal myocardial perfusion imaging showing a large area of transmural scar in the mid to distal anterior, apex, apical inferior, and anteroseptal segments. 4. Abnormal left ventricular systolic function with an estimated ejection fraction less than 20%. DO MARISEL Barahona/DIVINEL /[id number]
== END ==
LOC: NM 09:37
PROVIDERS: ATTEND Internal Medicine Interventional Cardiology
DX: I50.22 Chronic systolic (congestive) heart failure (principal)
CPT/HCPCS: 78452; 93017; 93306; A9502; J2785

== ENCOUNTER 2018-12-14 15:34 | Emergency (ER) | payer MEDICARE ==
[~2018-12-14] VITALS: Ht 188 cm; Wt 86.2 kg
[~2018-12-14 15:34] MED LIST changes: -REGADENOSON 0.4 MG/5 ML SYR IV ONE
--- OUTSIDE RECORDS SUMMARY | 2018-12-14 15:37 | XMS REPORT | Continuity of Care Document ---
Author Author Sarah carballo [facility] Interface Address Unknown Phone Unavailable Problems Problem Status Onset Date Classification Date Reported Comments Source Encounter for screening for cardiovascular disorders 08/04/2017 11/06/2017 [facility] I73.9 - PERIPHERAL VASCULAR DISEASE, U Active 07/24/2017 [facility] Peripheral vascular disease, unspecified 11/06/[address] [facility] Medications Medication Details Route Status Patient Instructions Ordering Provider Order Date Source Allergies, Adverse Reactions, Alerts Substance Category Reaction Severity Reaction type Status Date Reported Comments Source Immunizations Immunization Date Given Site Status Last Updated Comments Source Results Order Name Results Value Reference Range Date Interpretation Comments Source Ext Lower Arterial Doppler bilat US Ext Lower Arterial Doppler bilat US EXAM: US BILATERAL LOWER EXTREMITY ARTERIAL DOPPLER DATE: 07/31/2017 12:46 PM [employer] INST[employer] INDICATION: - Z13.6 Encounter for screening for cardiovascular disorders,I73.9 Peripheral vascular disease, unspecified ADDITIONAL INFORMATION: None. COMPARISON: None. TECHNIQUE: Multiplanar grayscale, color Doppler and spectral Doppler ultrasound images of the bilateral lower extremity arteries. Segmental pressures were obtained and ankle/brachial indices were calculated. FINDINGS: Moderate atherosclerotic plaque is seen without any focal areas of narrowing or significantly elevated velocities to indicate hemodynamically significant stenosis. Right Extremity Waveforms: Common Femoral Artery: 66 cm/s triphasic Superficial Femoral Artery: 85, 77, 72 cm/s triphasic Popliteal Artery: 49, 39, and 45 cm/s triphasic Posterior Tibialis Artery: 74 cm/s triphasic Anterior Tibialis Artery: 48 cm/s triphasic Dorsalis Pedis Artery: 56 cm/s triphasic Left Extremity Waveforms: Common Femoral Artery: 84 cm/s triphasic Superficial Femoral Artery: 114, 82, 105 cm/s triphasic Popliteal Artery: 68, 52, 52 cm/s triphasic Posterior Tibialis Artery: 71 cm/s triphasic Anterior Tibialis Artery: 72 cm/s triphasic Dorsalis Pedis Artery: 55 cm/s triphasic Ankle Brachial Indices: Right SAYRA: 1.0 Left SAYRA: 0.9 IMPRESSION: 1. Mild to moderate scattered echogenic atherosclerotic plaque without high-grade stenosis. 2. Ankle brachial indices, as above. 07/31/2017 - - Read by: Mauro Martinez MD Dictated Date/time: 07/31/17 14:51 Electronically Signed by: Mauro Martinez MD 07/31/17 14:56 FINAL REPORT [facility] Ext Artery Single Level Bilat US Ext Artery Single Level Bilat US EXAM: US BILATERAL LOWER EXTREMITY ARTERIAL DOPPLER DATE: 07/31/2017 12:46 PM [employer] INDICATION: - Z13.6 Encounter for screening for cardiovascular disorders,I73.9 Peripheral vascular disease, unspecified ADDITIONAL INFORMATION: None. COMPARISON: None. TECHNIQUE: Multiplanar grayscale, color Doppler and spectral Doppler ultrasound images of the bilateral lower extremity arteries. Segmental pressures were obtained and ankle/brachial indices were calculated. FINDINGS: Moderate atherosclerotic plaque is seen without any focal areas of narrowing or significantly elevated velocities to indicate hemodynamically significant stenosis. Right Extremity Waveforms: Common Femoral Artery: 66 cm/s triphasic Superficial Femoral Artery: 85, 77, 72 cm/s triphasic Popliteal Artery: 49, 39, and 45 cm/s triphasic Posterior Tibialis Artery: 74 cm/s triphasic Anterior Tibialis Artery: 48 cm/s triphasic Dorsalis Pedis Artery: 56 cm/s triphasic Left Extremity Waveforms: Common Femoral Artery: 84 cm/s triphasic Superficial Femoral Artery: 114, 82, 105 cm/s triphasic Popliteal Artery: 68, 52, 52 cm/s triphasic Posterior Tibialis Artery: 71 cm/s triphasic Anterior Tibialis Artery: 72 cm/s triphasic Dorsalis Pedis Artery: 55 cm/s triphasic Ankle Brachial Indices: Right SAYRA: 1.0 Left SAYRA: 0.9 IMPRESSION: 1. Mild to moderate scattered echogenic atherosclerotic plaque without high-grade stenosis. 2. Ankle brachial indices, as above. 07/31/2017 - - Read by: Mauro Martinez MD Dictated Date/time: 07/31/17 14:51 Electronically Signed by: Mauro Martinez MD 07/31/17 14:56 FINAL REPORT [facility] Vital Signs Vital Sign Value Date Comments Source Encounters Location Location Details Encounter Type Encounter Number Reason For Visit Attending Provider ADM Date DC Date Status Source [facility] Out[facility] Diag Services [id number] Truman Shea 07/31/2017 08/01/2017 [facility] Procedures Procedure Code Date Perfomer Comments Source
[2018-12-14] MEDS ORDERED: TETANUS/DIPHTHERIA TOX ADULT 0.5 ML SYR IM ONE (15:45)
[2018-12-14 16:35] VITALS: BP 97/67
== END 2018-12-14 16:35 | disposition home or self-care (01) ==
LOC: ER 15:34
DX: S61.217A Laceration without foreign body of left little finger without damage to nail, initial encounter (principal); W31.2XXA Contact with powered woodworking and forming machines, initial encounter; Y92.009 Unspecified place in unspecified non-institutional (private) residence as the place of occurrence of the external cause; Z23 Encounter for immunization; I25.10 Atherosclerotic heart disease of native coronary artery without angina pectoris; J44.9 Chronic obstructive pulmonary disease, unspecified; Z79.01 Long term (current) use of anticoagulants; Z79.82 Long term (current) use of aspirin; Z89.022 Acquired absence of left finger(s)
CPT/HCPCS: 90471; 90714; 99283

== ENCOUNTER 2018-12-23 10:57 | Inpatient (IN) | payer MEDICARE ==
[~2018-12-23] VITALS: Ht 188 cm; Wt 85.3 kg
--- OUTSIDE RECORDS SUMMARY | 2018-12-23 11:01 | XMS REPORT | Continuity of Care Document ---
Author Author [employer] [facility] [employer] Address Unknown Phone Unavailable Care Team Providers Care Senior Policy Analyst Name Role Phone [facility] [place] Information [employer] Unavailable Unavailable Problems Problem Status Onset Date Classification Date Reported Comments Source Encounter for screening for cardiovascular disorders 08/04/2017 [facility] - PERIPHERAL VASCULAR DISEASE, U Active 07/24/2017 [facility] Peripheral vascular disease, unspecified 11/06/2017 [facility] [employer] Medications No Data Provided for This Section Allergies, Adverse Reactions, Alerts No Known Medication Allergies Immunizations No Data Provided for This Section Results No Data Provided for This Section Pathology Reports No Data Provided for This Section Diagnostic Reports Report Value Date Source Ext Lower Arterial Doppler bilat US EXAM: US BILATERAL LOWER EXTREMITY ARTERIAL DOPPLER DATE: 07/31/2017 12:46 PM [employer] AGENT INDICATION: - Z13.6 Encounter for screening for [...] 2. Ankle brachial indices, as above. 07/31/2017 [facility] Ext Artery Single Level Bilat US EXAM: US BILATERAL LOWER EXTREMITY ARTERIAL DOPPLER DATE: 07/31/2017 12:46 PM [employer] AGENT INDICATION: - Z13.6 Encounter for screening for [...] 2. Ankle brachial indices, as above. 07/31/2017 [facility] Consultation Notes No Data Provided for This Section Discharge Summaries No Data Provided for This Section History and Physicals No Data Provided for This Section Vital Signs No Data Provided for This Section Encounters Location Location Details Encounter Type Encounter Number Reason For Visit Attending Provider ADM Date DC Date Status Source [facility] Outpatient Imaging - [place] Out[facility] Diag Services [id number] Truman Shea 07/31/2017 08/01/2017 [facility] Procedures No Data Provided for This Section Assessment and Plan No Data Provided for This Section Plan of Care No Data Provided for This Section Social History Social History Date Source No data available for this section [facility] Family History No Data Provided for This Section Advance Directives No Data Provided for This Section Functional Status No Data Provided for This Section
[2018-12-23 11:43] LABS: BASOPHILS % 0.2 % (0.0-1.0); EOSINOPHILS # (AUTO) 0.1 (0.0-0.4); EOSINOPHILS % 1.4 % (0.0-6.0); HEMOGLOBIN 10.6 g/dL (14.0-18.0); LYMPHOCYTES # (AUTO) 0.9 (1.0-3.2); LYMPHOCYTES % 10.5 % (18.0-39.1); MEAN CORPUSCULAR HEMOGLOBIN 32.1 pg (28-32); MEAN CORPUSCULAR HGB CONC 34.2 g/dL (31-35); MEAN CORPUSCULAR VOLUME 93.9 fL (81-99); MONOCYTES # (AUTO) 1.4 (0.2-0.8); MONOCYTES % 16.8 % (4.4-11.3); NEUTROPHILS % 70.6 % (38.7-80.0); PLATELET COUNT 115 x10e3/uL (140-360); RED CELL DISTRIBUTION WIDTH 15.4 % (11.7-14.4)
[2018-12-23 11:53] LABS: INR 1.94; PROTHROMBIN TIME 22.8 seconds (11.9-14.5)
[2018-12-23 11:54] LABS: PARTIAL THROMBOPLASTIN TIME 49.7 seconds (23.8-35.5)
[2018-12-23 12:06] LABS: ALANINE AMINOTRANSFERASE 64 IU/L (0-55); ALBUMIN 3.3 g/dL (3.5-5.0); ALBUMIN/GLOBULIN RATIO 1.1 (0.8-2.0); ALKALINE PHOSPHATASE 140 IU/L (40-150); AMYLASE 73 U/L (25-125); ANION GAP 13.4 mmol/L (8-16); BLOOD UREA NITROGEN 54 mg/dL (7-26); BUN/CREATININE RATIO 22 (6-25); CALCIUM 9.3 mg/dL (8.4-10.2); CARBON DIOXIDE 25 mmol/L (22-29); CHLORIDE 102 mmol/L (98-107); CREATINE KINASE 129 IU/L (30-200); CREATININE, SERUM 2.44 mg/dL (0.72-1.25); EST GLOMERULAR FILTRATION RATE 26 ML/MIN (60-); GLUCOSE 99 mg/dL (74-118); LIPASE 54 U/L (8-78); MAGNESIUM 2.1 MG/DL (1.3-2.1); POTASSIUM 4.4 mmol/L (3.5-5.1); SODIUM 136 mmol/L (136-145)
--- NOTE | 2018-12-23 12:07 | NUR ---
PT SIGNED CONSENT FOR CENTRAL LINE PLACEMENT
[2018-12-23 12:15] LABS: CREATINE KINASE MB < 1.00 ng/mL (0-4.3)
[2018-12-23] MEDS ORDERED: SODIUM CHLORIDE 0.9% 500ML 500 ML IV ONE (12:15)
[2018-12-23 12:54] LABS: BILIRUBIN,URINE NEGATIVE (NEGATIVE); CLARITY,URINE CLEAR (CLEAR); COLOR,URINE YELLOW (YELLOW); KETONES,URINE NEGATIVE (NEGATIVE); LEUKOCYTE ESTERASE ,URINE NEGATIVE (NEGATIVE); NITRITE,URINE NEGATIVE (NEGATIVE); PROTEIN,URINE DIPSTICK NEGATIVE (NEGATIVE); URINE UROBILINOGEN 1 mg/dL (0.2 - 1)
[2018-12-23 13:12] LABS: BACTERIA,URINE FEW /HPF; EPITHELIAL CELLS,URINE FEW /LPF; HYALINE CASTS 0-1 (0-1)
--- NOTE | 2018-12-23 13:37 | Diagnostic Imaging Report ---
EXAMINATION: CHEST SINGLE (PORTABLE) INDICATION: Fever, dizziness, hypotension. COMPARISON: None FINDINGS: TUBES and LINES: Left-sided triple lead AICD device. Right subclavian central venous catheter terminates in the upper SVC. LUNGS: There is mild perihilar fullness and indistinctness of the pulmonary vasculature. There are patchy opacities at the lung bases bilaterally. There is left basilar opacity silhouetting the left evi diaphragm. Nodular opacities project over the right midlung and left upper lung. PLEURA: Small bilateral pleural effusions. HEART AND MEDIASTINUM: There is moderate enlargement of the cardiomediastinal silhouette. BONES AND SOFT TISSUES: No acute osseous abnormality. UPPER ABDOMEN: No free air under the diaphragm. IMPRESSION: Nodular opacities project over the right midlung and left upper lung. Chest CT is recommended for further evaluation. Moderate cardiomegaly with mild pulmonary interstitial edema. Opacities in the lower lungs may represent alveolar edema, atelectasis, or pneumonia in the appropriate clinical setting. Signed by: Dr. Regla Gonzalez MD on 12/23/2018 1:33 PM
[2018-12-23] MEDS ORDERED: PIPER-TAZ 3.375 GM 50 ML IV SCH (14:00)
[2018-12-23] MEDS ORDERED: VANCOMYCIN HCL 1GM/NS 250 ML BAG IV STA (14:02)
[2018-12-23] MEDS ORDERED: ALBUTEROL SULF 0.083% NEB SOLN 3 ML NEB NEB SCH ×2 (14:15→15:00)
[2018-12-23] MEDS ORDERED: VANCOMYCIN 1GM/NS 250 ML 250 ML IV ONE (14:30)
--- OUTSIDE RECORDS SUMMARY | 2018-12-23 15:59 | XMS REPORT | Continuity of Care Document ---
Author Author [facility] Address Unknown Phone Unavailable Care Team Providers Care Pharmacy Benefits Coordinator Name Role Phone [facility] [employer] Unavailable Unavailable Problems Problem Status Onset Date Classification Date Reported Comments Source Encounter for screening for cardiovascular disorders 08/04/2017 11/06/2017 [facility] I73.9 - PERIPHERAL VASCULAR DISEASE, U Active 07/24/2017 [facility] [place] Peripheral vascular disease, unspecified 11/06/2017 [facility] Medications No Data Provided for This Section Allergies, Adverse Reactions, Alerts No Known Medication Allergies Immunizations No Data Provided for This Section Results No Data Provided for This Section Pathology Reports No Data Provided for This Section Diagnostic Reports Report Value Date Source Ext Lower Arterial Doppler bilat US EXAM: US BILATERAL LOWER EXTREMITY ARTERIAL DOPPLER DATE: 07/31/2017 12:46 PM [employer] 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 Ankle brachial indices, as above. 07/31/2017 [facility] Ext Artery Single Level Bilat US EXAM: US BILATERAL LOWER EXTREMITY ARTERIAL DOPPLER DATE: 07/31/2017 12:46 PM [employer] 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 Ankle brachial indices, as above. 07/31/2017 [facility] Consultation Notes No Data Provided for This Section Discharge Summaries No Data Provided for This Section History and Physicals No Data Provided for This Section Vital Signs No Data Provided for This Section Encounters Location Location Details Encounter Type Encounter Number Reason For Visit Attending Provider ADM Date DC Date Status Source [facility] [id number] Truman Shea 07/31/2017 08/01/2017 [facility] Procedures No Data Provided for This Section Assessment and Plan No Data Provided for This Section Plan of Care No Data Provided for This Section Social History Social History Date Source No data available for this section 08/01/[facility] Family History No Data Provided for This Section Advance Directives No Data Provided for This Section Functional Status No Data Provided for This Section
[2018-12-23] MEDS: SODIUM CHLORIDE 0.9% 1000ML 1,000 ML IV SCH (16:03)
[2018-12-23] MEDS: LEVALBUTEROL HCL SOLN NEBU 1.25 MG/3 ML NEB INH PRN (16:18)
[2018-12-23] MEDS ORDERED: LEVALBUTEROL HCL SOLN NEBU 0.63 MG/3 ML NEB ONE (16:19)
--- NOTE | 2018-12-23 16:30 | Diagnostic Imaging Report ---
EXAM: Right upper quadrant abdominal ultrasound INDICATION: Right upper quadrant pain COMPARISON: None. TECHNIQUE: Transverse and longitudinal images of the right upper quadrant abdomen were obtained FINDINGS: Liver: Size: 18.4 cm in the right midclavicular line. Appearance: Normal echogenicity, nodular contour Mass: No focal masses Gallbladder: No gallbladder distension, pericholecystic fluid, wall thickening, stone, or reported sonographic Knapp's sign. Gallbladder wall measures 0.2 cm. Bile Ducts: Intrahepatic Ducts: No dilatation Extrahepatic Ducts: Common bile duct measures 0.3cm, no dilatation Pancreas: Visualized portions of the pancreatic head, neck and proximal body are normal. Kidney: The right kidney measures 11.8 cm without evidence of hydronephrosis or stone. Vessels: Aorta: Visualized portions are normal Inferior Vena Cava: Visualized portions are normal Main Portal Vein: 1.2 cm, normal size with hepatopetal flow. Free Fluid: No ascites or pleural effusion IMPRESSION: No sonographic evidence of cholelithiasis or cholecystitis. Cirrhotic liver morphology and hepatomegaly. Signed by: Jojo Medrano MD on 12/23/2018 4:27 PM
[2018-12-23] MEDS ORDERED: ENTRESTO (16:31)
[2018-12-23] MEDS ORDERED: FINASTERIDE5 MG PO (16:31)
--- NOTE | 2018-12-23 17:12 | Diagnostic Imaging Report ---
EXAM: CT Chest without contrast 12/23/2018 2:02 PM INDICATION: Pulmonary nodules on chest radiograph COMPARISON: Chest radiograph of earlier the same day TECHNIQUE: Chest was scanned utilizing a multidetector helical scanner from the lung apex through the level of the adrenal glands without administration of IV contrast. Coronal and sagittal reformations were obtained. Routine protocol was performed. IV CONTRAST: None RADIATION DOSE: Total DLP: 631 mGy*cm Dose modulation, iterative reconstruction, and/or weight based adjustment of the mA/kV was utilized to reduce the radiation dose to as low as reasonably achievable. COMPLICATIONS: None FINDINGS: LINES/ TUBES: Right IJ central venous catheter terminates in the superior vena cava. AICD leads terminate in the right atrium and right ventricle. LUNGS AND AIRWAYS: The central airways are patent. Mild biapical pleural parenchymal thickening/scarring. There are no areas of peripheral groundglass opacity and consolidation right greater than left, most prominently in the right lower lobe on series 3 image 90. PLEURA: Multiple areas of partially calcified pleural plaque bilaterally correspond with the nodular opacities seen on the earlier chest radiograph. Small right pleural effusion. HEART AND MEDIASTINUM: The thyroid gland appears mildly atrophic and heterogeneous. There is multichamber cardiomegaly. No pericardial effusion. There is mediastinal and bilateral hilar lymphadenopathy, most notably an enlarged subcarinal lymph node measuring up to 3.6 x 2.2 cm. UPPER ABDOMEN: Limited non-contrast views of the upper abdomen show scattered prominent gastrohepatic and periportal lymph nodes. No abnormality within the visualized liver, spleen, pancreas. The adrenal glands are normal. Minimally visualized left kidney appears unremarkable. Right kidney not visualized. BONES: Mild degenerative changes of the visualized spine. No acute fracture or dislocation. SOFT TISSUES: Unremarkable. IMPRESSION: 1. Multifocal areas of peripheral and predominantly dependent groundglass opacity and consolidation most notably in the right lower lobe. In the acute setting with fever, this likely represents aspiration and/or pneumonia. 2. Multiple bilateral partially calcified pleural plaques corresponding with previously seen opacities on earlier chest radiograph. 3. Small right pleural effusion. 4. Mediastinal and hilar lymphadenopathy along with prominent gastrohepatic and periportal lymph nodes. Findings may be reactive, however short interval follow-up CT in 4 weeks is recommended to assess for stability or resolution. RECOMMENDATIONS: Follow-up chest CT in 4 weeks. Signed by: Jojo Medrano MD on 12/23/2018 5:08 PM
[2018-12-23] MEDS ORDERED: IPRATROPIUM BROMIDE 0.02% 2.5 ML NEB NEB SCH ×2 (18:00→19:00)
--- NOTE | 2018-12-23 19:44 | NUR ---
SPOKE TO DR MARTINEZ OF TEM [facility], ALSO INFORMED OF PATIENTS VITAL SIGNS AND DISCUSSION OF OVERALL PATIENT CONDITION. RECIEVED ORDERS FOR APAP 650MG PO [id number] PRN
[2018-12-23] MEDS: ACETAMINOPHEN 325 MG TAB PO PRN (19:51)
[2018-12-23 19:55] LABS: CREATINE KINASE MB 3.2 ng/mL (0-5.0)
[2018-12-23] MEDS ORDERED: DOCUSATE SODIUM 100 MG CAP PO PRN (21:15)
[2018-12-23] MEDS ORDERED: ONDANSETRON HCL INJ 2MG/ML 2ML 2 MG/ML VIAL IV PRN (21:15)
[2018-12-23 22:29] VITALS: BP 93/48
[2018-12-23 22:34] VITALS: BP 93/48
[2018-12-23] MEDS: CEFEPIME 1GM/NS 0.9% 50 ML 50 ML IV SCH (22:51)
[2018-12-23 23:00] VITALS: BP 94/59
[2018-12-23 23:59] VITALS: BP 93/62
[2018-12-24] VITALS (14 sets, daily range): BP systolic 83–123; BP diastolic 52–93
--- NOTE | 2018-12-24 00:26 | History and Physical ---
CHIEF COMPLAINT: Confusion. HISTORY OF PRESENT ILLNESS: This is an 83-year-old male, who has a history of heart failure, EF of less than 20%, hypertension, hyperlipidemia, BPH, and history of atrial fibrillation, on warfarin, presents to the ED with underlying confusion ongoing since Sunday of last week. The patient reports that he feels that he has been more confused than usual. He denies any fever, cough, congestion, or any symptoms of infection at home. No reports of any slurred speech or any stroke-like symptoms. No reports of any seizure-like activity as well. He denies any chest pain or any palpitations. The patient reports that he felt like he was severely dehydrated and was drinking significant amount of water on Sunday. On examination, the patient looks significantly dehydrated. The patient also reports that his blood pressure at home is in the systolic in the low 100s. Currently, his blood pressure systolic is in the 103. On arrival, his blood pressure was in the 80s systolically and was treated for underlying sepsis. Imaging studies consistent with a multifocal pneumonia seen on CT chest. The patient was seen and evaluated at bedside on the medical floor. He is currently doing much better. He was febrile with temperature of 102 this evening. REVIEW OF SYSTEMS: Pertinent positive: Encephalopathy and dehydration. Pertinent negative: Denies any chest pain, palpitation, nausea, vomiting, diarrhea, dysuria, hematuria, frequency, urgency, lightheadedness, dizziness, abdominal pain, headaches, shortness of breath, cough, congestion, fever, or any other complaints. The rest of 14-point review of systems have been reviewed with the patient and are negative. ALLERGIES: OFELIA INHIBITORS. HOME MEDICATIONS: Allopurinol 100 mg daily, aspirin 81 mg daily, cholecalciferol 1000 units p.o. daily, iron tablets 65 mg p.o. daily, finasteride 5 mg daily, Zocor 40 mg daily, tamsulosin 0.4 mg daily, and warfarin 3 mg daily. PAST MEDICAL HISTORY: He has history of heart failure, systolic dysfunction, EF less than 20%, BPH, hypertension, and history of hyperuricemia. PAST SURGICAL HISTORY: Reports none. FAMILY HISTORY: Hypertension and diabetes. SOCIAL HISTORY: No drugs. No alcohol. Does not smoke. He is . Good social support. PHYSICAL EXAMINATION: VITAL SIGNS: T-max is 102, pulse 80, respiratory rate is 19, systolic blood pressure was 103 when I evaluated him, recorded in the computer 95/66, pulse ox 95% on room air. GENERAL: Not in acute distress. He is alert and oriented x2. Cooperative on examination. HEENT: Head is normocephalic and atraumatic. Eyes; pupils are equal, round, and reactive to light bilaterally. Extraocular movements are intact bilaterally. Throat, no evidence of erythema or exudates in the posterior pharynx. Has poor dentition. NECK: Supple. Good range of motion throughout. PULMONARY: Clear to auscultation bilaterally. No wheezing, no rales, no rhonchi, no crackles appreciated. CARDIOVASCULAR: Positive S1, S2. No murmurs, rubs, or gallops appreciated. ABDOMEN: Soft, nondistended, and nontender to palpation. Bowel sounds present. MUSCULOSKELETAL: Muscle strength is 5/5 throughout. No evidence of any muscle deficits on examination. No weakness appreciated. NEUROLOGICAL: Cranial nerves II through XII were grossly intact. No evidence of any neurological deficits on exam. Skin: Intact. Warm to touch. Good cap refill. PSYCHIATRIC: Currently confused. Alert and oriented x3. EXTREMITIES: No edema. Good range of motion throughout. LAB FINDINGS: Show white count of 8.5, hemoglobin 10.6, hematocrit is 31, and platelets of 115. Coagulation; PT 22, INR 1.9, PTT is 49. Sodium 136, potassium 4.4, chloride 102, bicarb 25, anion gap of 13, BUN is 54, creatinine is 2.4, baseline is around 1.4 last year, glucose 99, lactic acid 7.6, normal calcium 9.3, magnesium 2.1, total bilirubin was 2.9. AST 88, ALT 64, alkaline phosphatase 140. CK is 129. Troponins were negative x2. Total protein 6.2, albumin 3.3, lipase 54. Urinalysis was negative. MICROBIOLOGY: Blood and urine cultures are pending. IMAGING STUDIES: Right upper quadrant ultrasound was found to be normal for acute cholecystitis. It does show evidence of cirrhotic liver and hepatomegaly. Chest x-ray shows nodularity opacity of project over the right mid nausea and left upper lung. Moderate cardiomegaly with mild pulmonary interstitial edema. Opacities in the lower lungs may represent alveolar edema, atelectasis, or pneumonia . CT chest shows impression multifocal areas of peripheral predominant depending on ground-glass opacities and consolidation most notably in the right lower lobe, indicative of underlying pneumonia. Multi bilateral partially calcified pleural plaques corresponding with periportal lymph nodes. May be reactive, but needs outpatient followup consultants. I discussed with the patient to follow up as an outpatient with Pulmonary, which I already consulted and he verbalized understanding. IMPRESSION: 1. Metabolic encephalopathy likely due to infection etiology. 2. Community-acquired pneumonia. 3. History of congestive heart failure with diastolic dysfunction, ejection fraction of less than 20%. 4. Chronic hypotension secondary to heart failure. 5. Acute kidney injury secondary to prerenal azotemia from dehydration. The patient clinically looks dehydrated on exam. 6. Positive lymph nodes on CT chest likely to be reactive. We will need outpatient followup of four weeks with his PCP, which I discussed this with the patient. 7. History of atrial fibrillation. PLAN: At this time, I feel like this underlying encephalopathy is likely infectious in nature. He is alert and oriented x2. We will continue with IV antibiotics with cefepime for his underlying pneumonia. Blood and urine cultures are pending. He does have a central line. Blood pressure is currently stable. in low 100s due to his heart failure according to the patient. Pulmonary Critical Care was consulted. He is already on warfarin for DVT prophylaxis. We will also get PT and OT evaluation. I consulted Pulmonary Critical Care and Cardiology for this patient. He is currently doing well, looks significantly dehydrated. We are going to put him on a heart-healthy diet and allow him to drink as much as he is able to tolerate. He is on low-dose IV fluids at 75 mL/h for his underlying dehydration. We will also get PT and OT evaluation. The patient will be transferred to the ICU for close monitoring and evaluation. MD JENSEN Keith/KAVIN /[id number]
[2018-12-24 01:29] LABS: CREATINE KINASE MB 2.7 ng/mL (0-5.0)
[2018-12-24] MEDS: SODIUM CHLORIDE 0.9% 1000ML 1,000 ML IV SCH ×2 (04:51→17:09)
[2018-12-24 05:09] LABS: BASOPHILS % 0.2 % (0.0-1.0); HEMOGLOBIN 10.5 g/dL (14.0-18.0); LYMPHOCYTES # (AUTO) 0.8 (1.0-3.2); LYMPHOCYTES % 8.8 % (18.0-39.1); MEAN CORPUSCULAR HEMOGLOBIN 31.3 pg (28-32); MEAN CORPUSCULAR HGB CONC 32.8 g/dL (31-35); MEAN CORPUSCULAR VOLUME 95.5 fL (81-99); MONOCYTES # (AUTO) 1.4 (0.2-0.8); MONOCYTES % 15.6 % (4.4-11.3); NEUTROPHILS # (AUTO) 6.4 (2.1-6.9); NEUTROPHILS % 74.7 % (38.7-80.0); PLATELET COUNT 110 x10e3/uL (140-360); RED BLOOD COUNT 3.35 x10e6/uL (4.3-5.7); RED CELL DISTRIBUTION WIDTH 15.4 % (11.7-14.4)
[2018-12-24 05:16] LABS: INR 1.95; PROTHROMBIN TIME 22.9 seconds (11.9-14.5)
[2018-12-24 05:30] LABS: ALBUMIN 3.1 g/dL (3.5-5.0); ANION GAP 15.2 mmol/L (8-16); CALCIUM 8.7 mg/dL (8.4-10.2); CREATININE, SERUM 2.02 mg/dL (0.72-1.25); POTASSIUM 4.2 mmol/L (3.5-5.1)
[2018-12-24] MEDS: ACETAMINOPHEN 325 MG TAB PO PRN ×2 (06:56→14:08)
--- NOTE | 2018-12-24 07:45 | Diagnostic Imaging Report ---
EXAM: CHEST SINGLE (PORTABLE), AP Portable DATE: 12/24/2018 Time stamp on exam: 7:00 AM INDICATION: Pneumonia COMPARISON: 12/23/2018 chest x-ray and chest CT FINDINGS: LINES/TUBES: Right subclavian central line and triple lead cardiac device are again noted. LUNGS: Worsening right lower lobe consolidation. Previously described pulmonary nodules again noted but less conspicuous. PLEURA: Right pleural effusion. HEART AND MEDIASTINUM: Enlarged cardiac silhouette. BONES AND SOFT TISSUES: No acute findings. IMPRESSION: Worsening right lower lobe pneumonia. Signed by: Dr. Mike Andre DO on 12/24/2018 7:41 AM
[2018-12-24 08:07] LABS: LYMPHOCYTES % (MANUAL) 4 % (19-48); MONOCYTES % (MANUAL) 11 % (3.4-9.0); NEUTROPHILS % (MANUAL) 85 % (40-74); PLATELET ESTIMATE ADEQUATE; PLATELET MORPHOLOGY COMMENT NORMAL
[2018-12-24 08:08] LABS: RBC MORPHOLOGY COMMENT NORMAL
[2018-12-24] MEDS: FINASTERIDE 5 MG TAB PO SCH (08:46)
[2018-12-24] MEDS: TAMSULOSIN HCL 0.4 MG CAP PO SCH (08:46)
[2018-12-24] MEDS: FERROUS SULFATE 325 MG TAB PO SCH (08:46)
[2018-12-24] MEDS: ASPIRIN 81 MG ENTERIC COATED PO SCH (08:46)
[2018-12-24] MEDS: CEFEPIME 1GM/NS 0.9% 50 ML 50 ML IV SCH ×2 (08:46→20:46)
[2018-12-24] MEDS: CHOLECALCIFEROL 1,000 UNIT TAB PO SCH (08:47)
[2018-12-24] MEDS: ALLOPURINOL 100 MG TAB PO SCH (08:47)
--- NOTE | 2018-12-24 09:45 | NUR ---
DR.BHALLA GEORGE MADE AWARE OF PATIENT GOING IN AND OUT OF AFIB INTO THE 120'S. THIS IS PATIENTS NORMAL WELL BP IN LOW 100'S AND 90'S. NO ORDERS RECEIVED WILL CONTINUE TO MONITOR
--- NOTE | 2018-12-24 09:47 | Consultation ---
DATE OF CONSULTATION: 12/24/2018 Cardiology Consultation INDICATION: Heart failure. HISTORY OF PRESENT ILLNESS: Mr. Cutler is an 83-year-old gentleman with a history of known congestive heart failure, atrial fibrillation on warfarin, and medical noncompliance, who came to office with blood pressure of 70, shaking chills. He was admitted from the emergency room with pneumonia of his right lung, on appropriate medical therapy. His blood pressure has improved slightly to 80. He is not on pressors. His home medications have been continued. PAST MEDICAL HISTORY: Listed above. SOCIAL HISTORY: The patient does not smoke or drink. ALLERGIES: OFELIA INHIBITORS. REVIEW OF SYSTEMS: Negative except as dictated in the history of present illness. PHYSICAL EXAMINATION: VITAL SIGNS: Afebrile, heart rate 99, blood pressure is 104/70, O2 sat is 94% on 2 L nasal cannula. CARDIOVASCULAR: Regular rhythm. S3 gallop, systolic murmur. LUNGS: Crackles bilaterally in both lung bases. ABDOMEN: Soft. LABORATORY DATA: Hemoglobin is 10.5. Serum creatinine is 2.0. Cardiac troponin is negative. BNP is 255. CT scan of the chest, EKG, and telemetry reviewed. ASSESSMENT: 1. Acute on chronic systolic heart failure. 2. Sepsis with septic shock. RECOMMENDATIONS: Continue IV antibiotics, cardiac medications. We will restart and maintain warfarin for INR of 2-3. Overall prognosis is guarded. MD LASHAE Correa/MODL /[id number]
[2018-12-24 10:11] LABS: CREATINE KINASE MB 2.8 ng/mL (0-5.0)
--- NOTE | 2018-12-24 13:04 | NUR ---
DISCUSSED IN BARRIER ROUNDS, PT ON ABX HAS ORDERS TO DOWNGRADE TO MED SURG WITH TELE.
--- NOTE | 2018-12-24 13:14 | Progress Note ---
DATE: 12/24/2018 Medicine Progress Note SUBJECTIVE: The patient is doing much better. He is actually sitting in a chair. He is alert and oriented x3. I spoke to the nurse about the plan of care. Patient's blood pressure is always low, systolic in the 90s and 100s due to his underlying systolic heart failure. He had a T-max of 100.8, but he is stable. No overnight events. PHYSICAL EXAMINATION: VITAL SIGNS: Current temperature was recorded at 100.8, pulse 99, respiratory rate is 20, blood pressure was 104/78, pulse ox 97% on 2 L of nasal cannula. GENERAL: Not in acute distress. He is alert and oriented x3. Cooperative on examination. HEENT: Head is normocephalic and atraumatic. Eyes; pupils are equal, round, and reactive to light bilaterally. Extraocular movements are intact bilaterally. Throat, no evidence of erythema or exudates in the posterior pharynx. Has poor dentition. NECK: Supple. Good range of motion throughout. PULMONARY: Has some positive crackles. No evidence of any wheezing. Good inspiratory effort. CARDIOVASCULAR: Positive S1, S2. No murmurs, rubs, or gallops appreciated. ABDOMEN: Soft, nondistended, and nontender to palpation. Bowel sounds present. MUSCULOSKELETAL: Muscle strength is 5/5 throughout. No evidence of any muscle deficits on examination. No weakness appreciated. NEUROLOGICAL: Cranial nerves II through XII were grossly intact. No evidence of any neurological deficits on exam. Skin: Intact. Warm to touch. Good cap refill. PSYCHIATRIC: Normal affect and mood. EXTREMITIES: No edema. Good range of motion throughout. LABORATORY DATA: Lab findings show white count of 8.6, hemoglobin 10.5, hematocrit 32, and platelets of 110. PT 22, INR 1.95. Chemistry; sodium was 138, potassium 4.2, chloride 104, bicarb 23, anion gap of 15, BUN is 48, creatinine is 2, downtrended from 2.4, glucose 110, calcium 8.7, albumin 3.1. MICROBIOLOGY: Blood cultures pending. Urine culture pending. IMAGING STUDIES: Chest x-ray from this morning worsening right lower lobe pneumonia. IMPRESSION: 1. Metabolic encephalopathy likely to be from underlying infection, improving. 2. Community-acquired pneumonia. 3. Congestive heart failure with systolic dysfunction, ejection fraction of less than 20%. 4. 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 5. Acute kidney injury secondary to dehydration, improving. 6. Positive left nodes on CT. Likely reactive from current infection. He has an outpatient followup with repeat CT imaging in four weeks. 7. History of atrial fibrillation. PLAN: At this time, continue with IV antibiotics. Blood and urine cultures are pending. We will transfer the patient from the ICU to medical floor. He is currently much more stable. Pulmonary Critical Care was consulted as well. Cardiology evaluated the patient. Continue with same plan of care. Cardioprotective medications. Continue with low-dose IV fluids for hydration. The patient looks still dehydrated on exam. He is on a heart-healthy diet. Continue with PT and OT. Continue with IV antibiotics. He is on warfarin for DVT prophylaxis. Consultants are Cardiology and Pulmonary Critical Care. MD JENSEN Keith/MODL /[id number]
[2018-12-24] MEDS ORDERED: DOXYCYCLINE HYCLATE TABLET 100 MG TAB PO STA (13:22)
[2018-12-24] MEDS ORDERED: DIGOXIN INJ 0.25 MG/ML 2 ML AMP IV ONE (13:30)
[2018-12-24 13:40] LABS: INR 1.76; PROTHROMBIN TIME 21.2 seconds (11.9-14.5)
[2018-12-24] MEDS: CARVEDILOL 12.5 MG TAB PO SCH ×2 (13:43→18:43)
--- NOTE | 2018-12-24 14:56 | NUR ---
RECEIVED CALL FROM PATIENTS , STATES " HE IS TELLING ME YOU ARE NOT GIVING HIM A FLUID PILL OR ANY HEART MEDICATIONS, AND WHY ARENT YOU GIVING HIM ANY WATER HE HAS AN ATHLETIC HEART HE IS LAYING ON HIS RIGHT SIDE. HIS HEART IS NEVER OVER 100, HE NEEDS TO DRINK MORE WATER FOR HIS ATHLETIC HEART. HE NEEDS HIS HEART MEDICATIONS." THIS RN ASSURED PATIENT THAT HE WAS RECEIVING HIS HEART MEDICATION AND IT WAS HELD BEFORE BECAUSE OF A LOW BLOOD PRESSURE, BUT IT HAD BEEN RESUMED AT THIS TIME. NO FURTHER QUESTIONS DISCUSSED AT THIS TIME.
[2018-12-24] MEDS ORDERED: NON-FORMULARY MEDICATION (Gabapentin 600 MG) PO SCH (15:00)
--- NOTE | 2018-12-24 15:54 | Consultation ---
DATE OF CONSULTATION: 12/24/2018 Pulmonary Medicine Consult PRIMARY CARE DOCTOR: Dr. Truman Shea. HISTORY OF PRESENT ILLNESS: Mr. Cutler is a pleasant 83-year-old gentleman with critical illness. The patient presented to [facility] on December 23, 2018. The patient had onset for four days. However, the encephalopathy was worsening. The patient had 100.6 temperature at home. Finally, he stooped and became very weak and he could not get up. At this point, he was recommended to come to the emergency room. The patient did have temperature of 102 degrees in the emergency room. Blood pressure is stable, which is at low normal. Urinalysis without any white blood cells. White count was 9000. Chest x-ray with bilateral pulmonary opacities. Chest CT confirms bilateral mainly subpleural reticular opacities and ground-glass and some associated bilateral pleural plaques that are calcified. There are nonspecific lymph nodes up to 36 mm in the subcarinal station, 39 mm pulmonary artery trunk. He is admitted. He denies any GI related symptoms. PAST MEDICAL HISTORY: COPD in the previous report, but not likely, atrial fibrillation, essential tremors, systolic heart failure with EF less than 20%, BPH status post TURP, hypertension, hyperuricemia. MEDICATIONS: Medication list reviewed per the chart record. Includes warfarin, allopurinol, aspirin, cholecalciferol, finasteride, Zocor, tamsulosin. ALLERGIES: TO OFELIA INHIBITOR. SOCIAL HISTORY: The patient smoked only for 10 years at one pack per day in his use. No alcohol. No drugs. 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 FAMILY HISTORY: Noncontributory. REVIEW OF SYSTEMS: Generally limited due to mentation changes and most of the history was taken from his son. OBJECTIVE: VITAL SIGNS: Currently afebrile, vital signs noted stable, reviewed per the chart record. GENERAL: In no acute distress, alert. He is better oriented than what record stated and can try to converse. HEENT: Normocephalic, atraumatic. NECK: Supple. Throat midline. LUNGS: Bilateral air entry, rare rhonchi. CARDIOVASCULAR: S1, S2. No murmurs, rubs, or gallops. ABDOMEN: Soft, nontender. EXTREMITIES: No clubbing, no cyanosis. There is no edema. INTEGUMENT: No purpura, there is trace excoriation and redness in the bilateral legs. LABORATORY DATA: 9 white count, 32 hematocrit, 110 platelets. 48 BUN, creatinine 2.0. It was 2.4 creatinine on admission. Urinalysis had no red cells. IMPRESSION AND PLAN: 1. Febrile syndrome, severe sepsis. 2. Abnormal chest radiography, treat for acute pneumonia. 3. 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 4. Acute on chronic kidney failure. 5. Small right-sided pleural effusion. 6. Bronchiectatic mild lung disease. 7. Systolic heart failure with less than 20% LVEF. 8. Hypertension. 9. Benign prostatic hypertrophy. 10. History of hyperuricemia. 11. Mediastinal lymphadenopathy. 12. History of atrial fibrillation, on warfarin. The patient's severe sepsis is improving and he is improving in his mentation. We will look to mobilize him. Continue antibiotics treating for pneumonia which may be due to the right-sided vascular infiltrate. However, we cannot definitely differentiate this from asbestos or other chronic lung process. Continue followup closely. We will wean oxygen down. Follow up with fluid status. Thank you very much, Dr. Tran, for allowing me a chance to participate in care of Mr. Cutler. Please call for questions. MD CRISTIAN Gotti/MODL /[id number]
[2018-12-24] MEDS: GABAPENTIN 300 MG CAP PO SCH ×2 (16:00→20:46)
[2018-12-24] MEDS ORDERED: WARFARIN SOD 3 MG TAB PO SCH (17:00)
[2018-12-24] MEDS ORDERED: VALSARTAN/SACUBITRIL 24MG/26MG 1 EA TAB PO SCH ×2 (17:00)
[2018-12-24] MEDS: VALSARTAN/SACUBITRIL 24MG/26MG 1 EA TAB PO SCH (17:09)
[2018-12-24] MEDS: WARFARIN SOD 2 MG TAB PO SCH (17:09)
[2018-12-24] MEDS: SIMVASTATIN 40 MG TAB PO SCH (20:46)
[2018-12-25] VITALS (12 sets, daily range): BP systolic 92–112; BP diastolic 60–75
[2018-12-25 05:33] LABS: BASOPHILS % 0.5 % (0.0-1.0); HEMATOCRIT 33.1 % (38.2-49.6); LYMPHOCYTES % 12.4 % (18.0-39.1); MEAN CORPUSCULAR HEMOGLOBIN 31.7 pg (28-32); MEAN CORPUSCULAR HGB CONC 33.2 g/dL (31-35); MEAN CORPUSCULAR VOLUME 95.4 fL (81-99); MONOCYTES # (AUTO) 1.2 (0.2-0.8); MONOCYTES % 14.5 % (4.4-11.3); NEUTROPHILS # (AUTO) 6.1 (2.1-6.9); NEUTROPHILS % 71.9 % (38.7-80.0); PLATELET COUNT 116 x10e3/uL (140-360); RED BLOOD COUNT 3.47 x10e6/uL (4.3-5.7); RED CELL DISTRIBUTION WIDTH 15.4 % (11.7-14.4)
[2018-12-25 05:57] LABS: ANION GAP 16.1 mmol/L (8-16); CALCIUM 8.9 mg/dL (8.4-10.2); CREATININE, SERUM 1.9 mg/dL (0.72-1.25); POTASSIUM 4.1 mmol/L (3.5-5.1)
[2018-12-25] MEDS: SODIUM CHLORIDE 0.9% 1000ML 1,000 ML IV SCH (06:05)
--- NOTE | 2018-12-25 06:58 | Diagnostic Imaging Report ---
EXAMINATION: CHEST SINGLE (PORTABLE) COMPARISON: Chest x-ray 12/24/2018, CT chest 12/23/2018 INDICATION: ^chf ^[id number] ^[id number] DISCUSSION: Frontal view of the chest obtained at 0620 hours. HEART AND MEDIASTINUM: Stable cardiomegaly LINES: Pacer/defibrillator wires terminate in the right atrium, right ventricle, and coronary sinus. Right subclavian central venous catheter terminates in the SVC LUNGS: Diffuse hyperinflation consistent with COPD. No interstitial edema. Central pulmonary vascular congestion is stable. Right lower lobe consolidation is similar. PLEURA: Small to moderate right pleural effusion is stable. Calcified pleural plaques are stable. No pneumothorax. BONES AND SOFT TISSUES: No focal osseous lesion. The soft tissues are normal. IMPRESSION: No change in right pleural effusion and right lower lobe consolidation. Stable cardiomegaly. No evidence of CHF. Signed by: Dr. Rickie Kaye MD on 12/25/2018 6:55 AM
[2018-12-25] MEDS: LEVALBUTEROL HCL SOLN NEBU 1.25 MG/3 ML NEB INH PRN (07:30)
[2018-12-25] MEDS: CEFEPIME 1GM/NS 0.9% 50 ML 50 ML IV SCH ×2 (08:07→21:06)
[2018-12-25] MEDS: FERROUS SULFATE 325 MG TAB PO SCH (08:07)
[2018-12-25] MEDS: ASPIRIN 81 MG ENTERIC COATED PO SCH (08:07)
[2018-12-25] MEDS: CITALOPRAM HYDROBROMIDE 20 MG TAB PO SCH (08:07)
[2018-12-25] MEDS: LORATADINE 10 MG TAB PO SCH (08:07)
[2018-12-25] MEDS: ALLOPURINOL 100 MG TAB PO SCH (08:07)
[2018-12-25] MEDS: GABAPENTIN 300 MG CAP PO SCH ×3 (08:07→21:06)
[2018-12-25] MEDS: VALSARTAN/SACUBITRIL 24MG/26MG 1 EA TAB PO SCH ×2 (08:07→16:58)
[2018-12-25] MEDS: TAMSULOSIN HCL 0.4 MG CAP PO SCH (08:07)
[2018-12-25] MEDS: FINASTERIDE 5 MG TAB PO SCH (08:07)
[2018-12-25] MEDS: CARVEDILOL 12.5 MG TAB PO SCH ×2 (08:07→16:58)
[2018-12-25] MEDS: CHOLECALCIFEROL 1,000 UNIT TAB PO SCH (08:07)
[2018-12-25 08:10] LABS: LYMPHOCYTES % (MANUAL) 15 % (19-48); MONOCYTES % (MANUAL) 15 % (3.4-9.0); NEUTROPHILS % (MANUAL) 69 % (40-74); PLATELET ESTIMATE SLIGHTLY DECREASED; PLATELET MORPHOLOGY COMMENT NORMAL; RBC MORPHOLOGY COMMENT NORMAL; SMUDGE CELLS FEW
[2018-12-25] MEDS ORDERED: NON-FORMULARY MEDICATION (Citalopram Hydrobromide (Citalopram Hbr) 10 MG) PO SCH (09:00)
[2018-12-25] MEDS ORDERED: LORATADINE 10 MG TAB PO SCH (09:00)
--- NOTE | 2018-12-25 11:38 | Progress Note ---
DATE: 12/25/2018 Cardiology Progress Note SUBJECTIVE: The patient is feeling better. Denies any ongoing chest pain or shortness of breath. OBJECTIVE: VITAL SIGNS: Temperature is 98.8, heart rate 71, respirations are 22, blood pressure is 109/71, and oxygen saturation is 96% on 2 L nasal cannula. GENERAL: He is a well-appearing elderly male, lying comfortably in bed. HEAD: Normocephalic, atraumatic. CARDIOVASCULAR: He is irregularly irregular. Normal rate. No murmurs. LUNGS: Diminished breath sounds at bases, right greater than left. ABDOMEN: Soft, nontender, nondistended. EXTREMITIES: No edema. LABORATORY DATA: Reviewed. TELEMETRY: Monitoring revealed atrial fibrillation. IMPRESSION: 1. Sepsis due to pneumonia. 2. Atrial fibrillation. 3. Acute on chronic systolic congestive heart failure. RECOMMENDATIONS: Continue current cardiovascular medications. Reduce IV fluid rate. Continue antibiotic therapies. Continue warfarin for an INR of 2-3. Continue close telemetry and hemodynamic monitoring. Mo Dalton DO BM/MODL /[id number]
--- NOTE | 2018-12-25 12:49 | NUR ---
Pulmonary Medicine DATE OF ENCOUNTER: 12/25/2018 SUBJECTIVE: 2 l/MIN OXYGEN, 98% saturation. when he walked the patient still had desaturations to 86% despite oxygen. no fever now, better. eating well, BM yesterday. CXR with no changes, asbestos changes + pneumonia. he is sitting up REVIEW OF SYSTEMS: no emesis, no headaches OBJECTIVE: VITAL SIGNS: vital signs reviewed per the chart record. GENERAL: NAD, alert. AO x 3 HEENT: Normocephalic, atraumatic. NECK: Supple. Throat midline. LUNGS: Bilateral air entry, rare rhonchi. CARDIOVASCULAR: S1, S2. No murmurs, rubs, or gallops. ABDOMEN: Soft, nontender. EXTREMITIES: No clubbing, no cyanosis. no edema. LABORATORY DATA: 4.1 k, cr 1.9. 8.4, 33 hct, 116 plt. 1.76 inr. IMPRESSION AND PLAN: 1. Febrile syndrome, severe sepsis. 2. Community acquired pneumonia. 3. Abnormal chest radiography, predominantly subpleural infiltrates and pleural plaques c/w asbestos lung disease. 4. Acute on chronic kidney failure. 5. Small right-sided pleural effusion. 6. Bronchiectatic mild lung disease. 7. Systolic heart failure with less than 20% LVEF. 8. Hypertension. 9. Benign prostatic hypertrophy. 10. History of hyperuricemia. 11. Mediastinal lymphadenopathy. 12. Hx atrial fibrillation, on warfarin. mobilize patient, PT follow up Continue antibiotics for pneumonia Continue followup closely. We will wean as oxygen as tolerated Follow up with fluid status, d/c IVF Avoid nephrotoxic agents Thank you very much, Dr. Tran, for allowing me a chance to participate in care of Mr. Cutler. Please call for questions.
--- NOTE | 2018-12-25 12:58 | Progress Note ---
DATE: 12/25/2018 Medicine Progress Note SUBJECTIVE: The patient is doing well, sitting on the side of the bed in a chair. He reports to me he is not on home O2, currently he is on oxygen. We are going to try to wean that off. He is alert. He is oriented x3, much improved compared to yesterday. We will go ahead and restart his Ambien that he takes at night for sleep. He is tolerating oral fluids well with no issues. PHYSICAL EXAMINATION: VITAL SIGNS: Temperature is 98.8, pulse 81, respiratory rate of 22, blood pressure 109/71, pulse ox 96% on 2 L nasal cannula. Urine output recorded to be 800 is recorded. GENERAL: Not in acute distress. Alert and oriented x3. Cooperative on examination. HEENT: Head is normocephalic and atraumatic. Eyes; pupils are equal, round, and reactive to light bilaterally. Extraocular movements are intact bilaterally. Throat, no evidence of erythema or exudates in the posterior pharynx. Has poor dentition. NECK: Supple. Good range of motion throughout. PULMONARY: Clear to auscultation bilaterally. No wheezing, no rales, no rhonchi, no crackles appreciated. CARDIOVASCULAR: Positive S1, S2. No murmurs, rubs, or gallops appreciated. ABDOMEN: Soft, nondistended, and nontender to palpation. Bowel sounds present. MUSCULOSKELETAL: Muscle strength is 5/5 throughout. No evidence of any muscle deficits on examination. No weakness appreciated. NEUROLOGICAL: Cranial nerves II through XII were grossly intact. No evidence of any neurological deficits on exam. SKIN: Intact. Warm to touch. Good cap refill. PSYCHIATRIC: Normal affect and mood. EXTREMITIES: No edema. Good range of motion throughout. LABORATORY DATA: Lab findings show white count of 8.4, hemoglobin 11, hematocrit 33, platelets of 116. Coagulation, PT 21, INR 1.76. Chemistry; sodium 140, potassium 4.1 chloride 108, bicarb 20, anion gap of 16, BUN is 47, creatinine is 1.9, glucose 104, magnesium 2.4. Urinalysis negative. MICROBIOLOGY: Blood and urine cultures were negative. IMAGING STUDIES: Chest x-ray this morning shows no change in the right lower lobe consolidation. IMPRESSION: 1. Metabolic encephalopathy secondary to infection, now improving. 2. Community-acquired pneumonia. 3. History of congestive heart failure with diastolic dysfunction. EF less than 20%. 4. 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 5. Acute kidney injury secondary to dehydration, improving. 6. Lymphadenopathy seen on CT chest. We will need repeat CT in about four weeks, which I discussed with the patient, he verbalized understanding. 7. History of atrial fibrillation. PLAN: At this time all cultures were negative. Continue with IV antibiotics. He would be transferred to the medical floor for further management and care. Pulmonary Critical Care and Cardiology have been consulted. I will continue with IV fluids for now as his creatinine is still slightly elevated. Encourage oral hydration and heart healthy diet. He is on warfarin for DVT prophylaxis. His INR is within normal range. We will continue to follow with the consultants. He is still on oxygen, we are going to try to see if we can wean him off. If not, he may need home O2. I discussed this case with the nursing staff taking care. MD JENSEN Keith/KAVIN /[id number]
--- NOTE | 2018-12-25 14:05 | NUR ---
PATIENT RECEIVED FROM ICU ROOM 195- PATIENT IS IN STABLE CONDITION WITH NO S/S OF RESPIRATORY DISTRESS. NO PAIN VOICED. 02 APPLIED AT 2L NC. CALL LIGHT IS WITHIN REACH, INSTRUCTED TO CALL FOR ASSISTANCE NEEDED.
[2018-12-25] MEDS: WARFARIN SOD 2 MG TAB PO SCH (16:58)
--- NOTE | 2018-12-25 19:29 | NUR ---
PATIENT IS RESTING IN BED- IN STABLE CONDITION WITH NO S/S OF RESPIRATORY DISTRESS. NO PAIN VOICED. 02 APPLIED AT 2L NC. TELEMETRY APPLIED. PRESENT IN ROOM. CALL LIGHT IS WITHIN REACH, INSTRUCTED TO CALL FOR ASSISTANCE NEEDED. BEDSIDE REPORT GIVEN TO ONCOMING NURSE.
--- NOTE | 2018-12-25 19:46 | NUR ---
PT IS RESTING IN BED WITH AT BEDSIDE. RESPIRATION IS EVEN AND UNLABORED, NO DISTRESS NOTED. BED IN THE LOWEST POSITION, LOCKED, AND CALL LIGHT WITHIN REACH. WILL CONTINUE TO MONITOR.
[2018-12-25] MEDS: ZOLPIDEM TARTRATE 10 MG TAB PO SCH (21:06)
[2018-12-25] MEDS: SIMVASTATIN 40 MG TAB PO SCH (21:07)
[2018-12-25] MEDS ORDERED: SODIUM CHLORIDE 0.9% 250ML 250 ML ONE (21:09)
[2018-12-26] VITALS (8 sets, daily range): BP systolic 91–110; BP diastolic 53–65
[2018-12-26 06:06] LABS: BASOPHILS % 0.6 % (0.0-1.0); HEMATOCRIT 31.9 % (38.2-49.6); HEMOGLOBIN 10.5 g/dL (14.0-18.0); MEAN CORPUSCULAR HEMOGLOBIN 31.5 pg (28-32); MEAN CORPUSCULAR HGB CONC 32.9 g/dL (31-35); MEAN CORPUSCULAR VOLUME 95.8 fL (81-99); MONOCYTES % 14.6 % (4.4-11.3); NEUTROPHILS # (AUTO) 4.8 (2.1-6.9); NEUTROPHILS % 70.4 % (38.7-80.0); PLATELET COUNT 124 x10e3/uL (140-360); RED BLOOD COUNT 3.33 x10e6/uL (4.3-5.7); RED CELL DISTRIBUTION WIDTH 15.1 % (11.7-14.4)
[2018-12-26 06:10] LABS: INR 1.94; PROTHROMBIN TIME 22.8 seconds (11.9-14.5)
[2018-12-26 06:16] LABS: CALCIUM 8.7 mg/dL (8.4-10.2); CREATININE, SERUM 1.44 mg/dL (0.72-1.25)
--- NOTE | 2018-12-26 07:40 | NUR ---
Received patient this morning, alert and responsive, in bed and no respiratory distress, no c/o pains, call light within reach and rounds completed this morning, will monitor.
[2018-12-26] MEDS: CEFEPIME 1GM/NS 0.9% 50 ML 50 ML IV SCH ×2 (09:00→20:51)
[2018-12-26] MEDS: CARVEDILOL 12.5 MG TAB PO SCH ×2 (09:00→17:00)
[2018-12-26] MEDS: CITALOPRAM HYDROBROMIDE 20 MG TAB PO SCH (09:23)
[2018-12-26] MEDS: TAMSULOSIN HCL 0.4 MG CAP PO SCH (09:23)
[2018-12-26] MEDS: CHOLECALCIFEROL 1,000 UNIT TAB PO SCH (09:23)
[2018-12-26] MEDS: FINASTERIDE 5 MG TAB PO SCH (09:23)
[2018-12-26] MEDS: LORATADINE 10 MG TAB PO SCH (09:23)
[2018-12-26] MEDS: VALSARTAN/SACUBITRIL 24MG/26MG 1 EA TAB PO SCH ×2 (09:23→17:00)
[2018-12-26] MEDS: ASPIRIN 81 MG ENTERIC COATED PO SCH (09:23)
[2018-12-26] MEDS: FERROUS SULFATE 325 MG TAB PO SCH (09:23)
[2018-12-26] MEDS: ALLOPURINOL 100 MG TAB PO SCH (09:23)
[2018-12-26] MEDS: GABAPENTIN 300 MG CAP PO SCH ×3 (09:23→20:51)
--- NOTE | 2018-12-26 10:56 | NUR ---
IV line to LAC removed and cath tip in place, dressing applied.
--- NOTE | 2018-12-26 11:21 | NUR ---
Changed dressing to IJ CVC line and tolerated well.
[2018-12-26] MEDS: LEVALBUTEROL HCL SOLN NEBU 1.25 MG/3 ML NEB INH PRN (11:48)
--- NOTE | 2018-12-26 11:48 | NUR ---
Patient taken off oxygen at this time and will monitor his levels, ambulated with PT and had some SOB, getting a NEB treatment at this time
--- NOTE | 2018-12-26 12:24 | Diagnostic Imaging Report ---
EXAMINATION: CHEST SINGLE (PORTABLE) INDICATION: ^PNA ^[id number] ^[id number] COMPARISON: 12/24/2018 FINDINGS: AP view TUBES and LINES: Stable triple lead left chest wall cardiac device and right subclavian central line. LUNGS: Pulmonary vascular congestion and mild interstitial edema. Right mid to lower lung field opacification. PLEURA: No pneumothorax. HEART AND MEDIASTINUM: The cardiomediastinal silhouette is enlarged. BONES AND SOFT TISSUES: No acute osseous lesion. Soft tissues are unremarkable. UPPER ABDOMEN: No free air under the diaphragm. IMPRESSION: Enlarged cardiomediastinal silhouette, pulmonary vascular congestion, and mild interstitial edema. Right mid to lower lung field opacification, representing moderate size pleural effusion with adjacent atelectasis. Underlying pneumonia cannot be excluded. Signed by: Dr. Quique Jimenez MD on 12/26/2018 12:20 PM
[2018-12-26] MEDS ORDERED: FUROSEMIDE INJ 10 MG/ML 4 ML VIAL IV ONE ×2 (12:30→17:00)
--- NOTE | 2018-12-26 12:31 | NUR ---
Patient off oxygen and had some SOB and desats to 88/89% RA, reapplied oxygen at 2L NC and will monitor. Orders in place for home O2 Eval
--- NOTE | 2018-12-26 13:39 | Progress Note ---
DATE: 12/26/2018 Medicine Progress Note SUBJECTIVE: The patient is doing much better today. He does report that he is short of breath now. We are in the process of giving him DuoNeb treatment, chest x-ray and we will go ahead and give him Lasix 40 mg IV x1 now. We are also going to try to wean him off oxygen as he reports he is not on oxygen at home. PHYSICAL EXAMINATION: VITAL SIGNS: Temperature is 98.2, pulse 93, respiratory rate is 18, blood pressure was 107/65, pulse ox is 94% on 2 L nasal cannula. GENERAL: Not in acute distress. Alert and oriented x3. Cooperative on examination. HEENT: Head is normocephalic and atraumatic. Eyes; pupils are equal, round, and reactive to light bilaterally. Extraocular movements are intact bilaterally. Throat, no evidence of erythema or exudates in the posterior pharynx. Has poor dentition. NECK: Supple. Good range of motion. PULMONARY: Clear to auscultation bilaterally. No wheezing, no rales, no rhonchi, no crackles appreciated. CARDIOVASCULAR: Positive S1, S2. No murmurs, rubs, or gallops appreciated. ABDOMEN: Soft, nondistended, and nontender to palpation. Bowel sounds present. MUSCULOSKELETAL: Strength is 5/5 throughout. No evidence of any muscle deficits on examination. No weakness appreciated. NEUROLOGICAL: Cranial nerves 2 through 12 grossly intact. No evidence of any neurological deficits on exam. SKIN: Intact. Warm to touch. Good cap refill. PSYCHIATRIC: Normal affect and mood. EXTREMITIES: No edema. Good range of motion throughout. LABORATORY DATA: Lab findings show white count of 6.7, hemoglobin 10.5, hematocrit 32, and platelets of 124. Chemistry; sodium 137, potassium is 4, chloride 107, bicarb 22, anion gap of 12, BUN is 39, creatinine is 1.44, glucose is 94, calcium is 8.7, magnesium is 2.4. MICROBIOLOGY: Blood cultures are negative. Urine cultures are negative. IMAGING STUDIES: None. IMPRESSION: 1. Metabolic encephalopathy secondary to infection, resolved. 2. Community-acquired pneumonia, on IV antibiotics. 3. History of congestive heart failure with diastolic and systolic dysfunction. EF of less than 20%. 4. 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 5. Acute kidney injury secondary to dehydration. 6. Lymphadenopathy seen on CT chest. We will need repeat CT chest as an outpatient, which the patient verbalized understanding, to follow up with PCP. 7. History of atrial fibrillation. PLAN: At this time, all cultures are negative. We will continue with IV antibiotics for now. He is on the medical floor. Pulmonary Critical Care is following. In relation to his heart failure, Cardiology was consulted and managed accordingly. He is off IV fluids. We will get a chest x-ray, give him 40 Lasix IV x1 and put some DuoNebs as the patient reported being short of breath. Our goal is to wean him off oxygen. He currently does not take oxygen at home. We will get a.m. labs. He has worked with PT and OT. Warfarin for DVT prophylaxis. We will also put home health for home PT, OT. MD JENSEN Keith/KAVIN /[id number]
--- NOTE | 2018-12-26 13:45 | NUR ---
Pulmonary Medicine DATE OF ENCOUNTER: 12/26/2018 SUBJECTIVE: patient without new fevers he is still mildly weak still assist on ambulation eating better REVIEW OF SYSTEMS: no emesis, no headaches OBJECTIVE: VITAL SIGNS: vital signs reviewed per the chart record. GENERAL: NAD, alert. AO x 3 HEENT: Normocephalic, atraumatic. NECK: Supple. Throat midline. LUNGS: Bilateral air entry, rare rhonchi. CARDIOVASCULAR: S1, S2. No murmurs, rubs, or gallops. ABDOMEN: Soft, nontender. EXTREMITIES: No clubbing, no cyanosis. no edema. LABORATORY DATA: 4.0 k, cr 1.4. 7 wbc, 32 hct IMPRESSION AND PLAN: 1. Febrile syndrome, severe sepsis. 2. Community acquired pneumonia. 3. Abnormal chest radiography, predominantly subpleural infiltrates and pleural plaques c/w asbestos lung disease. 4. Acute on chronic kidney failure. 5. Small right-sided pleural effusion. 6. Bronchiectatic mild lung disease. 7. Systolic heart failure with less than 20% LVEF. 8. Hypertension. 9. Benign prostatic hypertrophy. 10. History of hyperuricemia. 11. Mediastinal lymphadenopathy. 12. Hx atrial fibrillation, on warfarin. mobilize patient, PT follow up Continue antibiotics for pneumonia Continue followup closely. Follow up with fluid status Avoid nephrotoxic agents Thank you very much, Dr. Tran, for allowing me a chance to participate in care of Mr. Cutler. Please call for questions.
--- NOTE | 2018-12-26 16:18 | NUR ---
Home O2 Eval completed and in chart. Orders per attending to give another dose of Lasix 40 IV and repeat CXR in AM.
[2018-12-26] MEDS: WARFARIN SOD 2 MG TAB PO SCH (17:10)
--- NOTE | 2018-12-26 18:04 | Progress Note ---
DATE: 12/26/2018 Cardiology Progress Note SUBJECTIVE: The patient complains of shortness of breath. Denies any chest pain. OBJECTIVE: VITAL SIGNS: Temperature 98.2, pulse 76, oxygen saturation 94% on 2 L nasal cannula, respiratory rate 24, and blood pressure 91/55. GENERAL: Alert and oriented x3. Resting comfortably in the chair with his at the bedside. Does not appear to be uncomfortable. NECK: Supple. No JVD noted. CARDIOVASCULAR: Regular rate and rhythm. Systolic murmur present. LUNGS: Diminished breath sounds throughout with scattered crackles. ABDOMEN: Soft, nontender. LOWER EXTREMITIES: No edema. LABORATORY DATA: WBC 6.7, hemoglobin 10.5, hematocrit 31.9, and platelet 124. Sodium 137, potassium 4.0, BUN 39, creatinine 1.44, calcium 8.7, and INR 1.94. PT 22.8. Chest x-ray from earlier with enlarged cardiomediastinal silhouette, pulmonary vascular congestion, mild interstitial edema, and right mid and lower lung field opacities. Telemetry reveals paced rhythm. IMPRESSION: 1. Sepsis due to pneumonia. 2. Atrial fibrillation. 3. Acute on chronic systolic heart failure. RECOMMENDATION: Continue with current cardiac medication. Continue to monitor on telemetry. Continue the current dose of warfarin. We will monitor INR closely. Continue antimicrobial therapy per Infectious Disease. Monitor this patient closely. Dictated by Aminata España NP MD LIZZY Correa/KAVIN /[id number]
--- NOTE | 2018-12-26 19:00 | NUR ---
RECEIVED PATIENT IN BEDSIDE REPORT. PATIENT IS SITTING IN CHAIR AT BEDSIDE. A&OX3. NO PAIN REPORTED. NO S&S OF DISTRESS NOTED. AT BEDSIDE. BED LOCKED IN LOWEST POSITION, SIDE RAILS UPX2, CALL LIGHT IN REACH.
--- NOTE | 2018-12-26 20:00 | NUR ---
R AC 20G IV NOTED TO BE LEAKING. SOME REDNESS/BRUISING NOTED, NO PAIN REPORTED. REMOVED IV AT THIS TIME. CATHETER TIP INTACT. PRESSURE DRESSING APPLIED.
[2018-12-26] MEDS: ZOLPIDEM TARTRATE 10 MG TAB PO SCH (20:51)
[2018-12-26] MEDS: SIMVASTATIN 40 MG TAB PO SCH (20:51)
[2018-12-27] VITALS (8 sets, daily range): BP systolic 90–99; BP diastolic 50–74
--- NOTE | 2018-12-27 05:09 | NUR ---
DISCUSSED WITH PATIENT HIS BP OF 90/51. PATIENT STATES IT IS VERY NORMAL FOR HIM. PATIENT IS ASYMPTOMATIC. PATIENT STATES HE HAS A SORE THROAT, WOULD LIKE SOMETHING FOR IT, BUT WANTS TO WAIT UNTIL MD MARTINEZ ARRIVES.
[2018-12-27 06:04] LABS: BASOPHILS # (AUTO) 0.1 (0.0-0.1); BASOPHILS % 0.9 % (0.0-1.0); EOSINOPHILS # (AUTO) 0.1 (0.0-0.4); EOSINOPHILS % 1.3 % (0.0-6.0); HEMATOCRIT 32.7 % (38.2-49.6); HEMOGLOBIN 10.9 g/dL (14.0-18.0); LYMPHOCYTES # (AUTO) 1.3 (1.0-3.2); LYMPHOCYTES % 18.6 % (18.0-39.1); MEAN CORPUSCULAR HEMOGLOBIN 32.1 pg (28-32); MEAN CORPUSCULAR HGB CONC 33.3 g/dL (31-35); MEAN CORPUSCULAR VOLUME 96.2 fL (81-99); MONOCYTES # (AUTO) 0.8 (0.2-0.8); MONOCYTES % 11.9 % (4.4-11.3); NEUTROPHILS # (AUTO) 4.6 (2.1-6.9); NEUTROPHILS % 66.9 % (38.7-80.0); PLATELET COUNT 149 x10e3/uL (140-360); RED CELL DISTRIBUTION WIDTH 15.3 % (11.7-14.4)
--- NOTE | 2018-12-27 06:06 | Diagnostic Imaging Report ---
EXAMINATION: CHEST SINGLE (PORTABLE) COMPARISON: 12/26/2018 INDICATION: ^pulmonary congestion DISCUSSION: Frontal view of the chest obtained at 0531 hours. HEART AND MEDIASTINUM: Stable cardiomegaly LINES: Pacer/defibrillator wires are stable in position. Right subclavian central venous catheter terminates in the SVC and is stable. LUNGS: Consolidation in the inferior and lateral right chest is redemonstrated and stable. No new findings in the left lung. Mild central pulmonary vascular congestion is stable. PLEURA: No pneumothorax. BONES AND SOFT TISSUES: No focal osseous lesion. The soft tissues are normal. IMPRESSION: No change in right pulmonary consolidation. Associated pleural effusion cannot be excluded. Signed by: Dr. Rickie Kaye MD on 12/27/2018 6:03 AM
[2018-12-27 06:07] LABS: INR 2.22; PROTHROMBIN TIME 25.3 seconds (11.9-14.5)
[2018-12-27 06:14] LABS: ANION GAP 12.7 mmol/L (8-16); CALCIUM 8.6 mg/dL (8.4-10.2); CREATININE, SERUM 1.41 mg/dL (0.72-1.25); POTASSIUM 3.7 mmol/L (3.5-5.1)
[2018-12-27] MEDS: LEVALBUTEROL HCL SOLN NEBU 1.25 MG/3 ML NEB INH PRN ×2 (07:00→13:00)
--- NOTE | 2018-12-27 07:30 | NUR ---
REC'V PT AAOX3, AT THE BEDSIDE, NO S/S OF DISTRESS. IV TO THE RIGHT IJ PICC LINE IS INTACT AND PATENT. SIDE RAILS UP X2, BED IN LOWEST POSITION, AND CALL LIGHT WITHIN REACH.
[2018-12-27] MEDS: CEFEPIME 1GM/NS 0.9% 50 ML 50 ML IV SCH ×2 (09:00→21:30)
[2018-12-27] MEDS: CITALOPRAM HYDROBROMIDE 20 MG TAB PO SCH (10:22)
[2018-12-27] MEDS: ASPIRIN 81 MG ENTERIC COATED PO SCH (10:22)
[2018-12-27] MEDS: LORATADINE 10 MG TAB PO SCH (10:22)
[2018-12-27] MEDS: VALSARTAN/SACUBITRIL 24MG/26MG 1 EA TAB PO SCH ×2 (10:23→16:26)
[2018-12-27] MEDS: FERROUS SULFATE 325 MG TAB PO SCH (10:23)
[2018-12-27] MEDS: CARVEDILOL 12.5 MG TAB PO SCH ×2 (10:23→16:28)
[2018-12-27] MEDS: TAMSULOSIN HCL 0.4 MG CAP PO SCH (10:23)
[2018-12-27] MEDS: GABAPENTIN 300 MG CAP PO SCH ×3 (10:23→21:30)
[2018-12-27] MEDS: FINASTERIDE 5 MG TAB PO SCH (10:23)
[2018-12-27] MEDS: ALLOPURINOL 100 MG TAB PO SCH (10:24)
[2018-12-27] MEDS: CHOLECALCIFEROL 1,000 UNIT TAB PO SCH (10:24)
[2018-12-27] MEDS: BUMETANIDE 1 MG TAB PO SCH (13:30)
--- NOTE | 2018-12-27 13:59 | NUR ---
CM SPOKE TO PATIENT AT BEDSIDE REGARDING PLAN OF CARE AND DISCHARGE PLAN. PATIENT AWARE HE IS NEEDING HOME OXYGEN. CHOICES GIVEN AND PATIENT CHOSE [facility]. CHOICE LETTER SIGNED AND PLACED IN CHART. CLINICAL SENT TO [facility]. PENDING AUTH AND DELIVERY AT BEDSIDE FOR ANTICIPATED DISCHARGE OF 12/28. [facility]: (P)[phone] (F) [phone]
--- NOTE | 2018-12-27 14:02 | NUR ---
DISCHARGE DISPOSITION PATIENT DISCHARGING HOME WITH HOME OXYGEN WITH: [facility]: (P)[phone] (F) [phone] LIAISON: NATI
[2018-12-27 15:14] LABS: BASOPHILS % 0.5 % (0.0-1.0); EOSINOPHILS # (AUTO) 0.2 (0.0-0.4); EOSINOPHILS % 3.1 % (0.0-6.0); HEMOGLOBIN 11.2 g/dL (14.0-18.0); LYMPHOCYTES % 13.5 % (18.0-39.1); MEAN CORPUSCULAR HEMOGLOBIN 31.8 pg (28-32); MEAN CORPUSCULAR HGB CONC 32.9 g/dL (31-35); MEAN CORPUSCULAR VOLUME 96.6 fL (81-99); MONOCYTES # (AUTO) 0.9 (0.2-0.8); MONOCYTES % 11.3 % (4.4-11.3); NEUTROPHILS # (AUTO) 5.3 (2.1-6.9); NEUTROPHILS % 70.9 % (38.7-80.0); PLATELET COUNT 157 x10e3/uL (140-360); RED BLOOD COUNT 3.52 x10e6/uL (4.3-5.7); RED CELL DISTRIBUTION WIDTH 15.3 % (11.7-14.4)
[2018-12-27 15:24] LABS: INR 2.31; PROTHROMBIN TIME 26.1 seconds (11.9-14.5)
[2018-12-27 15:29] LABS: ANION GAP 13.1 mmol/L (8-16); CALCIUM 8.9 mg/dL (8.4-10.2); CREATININE, SERUM 1.39 mg/dL (0.72-1.25); POTASSIUM 4.1 mmol/L (3.5-5.1)
--- NOTE | 2018-12-27 15:38 | NUR ---
DISCUSSED IN ROUNDS, PT TO GO HOME POSSIBLY TODAY WITH HOME HEALTH AND O2, ALERTED OTHER CM AND SHE WILL CONTINUE PROCESS DUE TO OXYGEN PORTION OF ORDER.
--- NOTE | 2018-12-27 15:49 | NUR ---
CM SPOKE TO PATIENT AND PATIENT AT BEDSIDE REGARDING RESOURCES. PATIENT NEEDED PROVIDER CARE INFORMATION AND RESOURCES. PATIENT EDUCATED ON [address], INSURANCE DISCOUNTED COMPANIES FOR [employer] PAY RESOURCES AND ENCOURAGED TO COORDINATE WITH PCP IF NEEDING SERVICES POST DISCHARGE. PATIENT AND PATIENT FAMILY WITH NO FURTHER QUESTIONS AND APPRECIATE CONVERSATION.
--- NOTE | 2018-12-27 16:03 | Progress Note ---
DATE: 12/27/2018 Pulmonary Progress Note The patient feels better. He has less dyspnea today. PHYSICAL EXAMINATION: VITAL SIGNS: The patient is afebrile. The blood pressure is 97/70 and saturation is 100% on 2 L. CARDIAC: Reveals regular rate and rhythm with normal S1, S2. There are no murmurs or rubs. LUNGS: Auscultation of lungs reveals crackles at both bases. There is no wheezing. ABDOMEN: Soft, nontender. There is no rebound or guarding. EXTREMITIES: Show no leg edema or calf tenderness. IMPRESSION: 1. Pneumonia with severe sepsis, present on admission. 2. Acute on chronic systolic congestive heart failure. 3. Acute on chronic respiratory failure. 4. Asbestos-related lung disease. 5. Bronchiectasis with acute exacerbation. 6. Hypertension. 7. Atrial fibrillation. PLAN: 1. Continue antibiotics. 2. Continue diuresis. 3. Continue current cardiac regimen. 4. Wean oxygen as tolerated. 5. Possible discharge home tomorrow. Juan Pablo Butt MD [facility]/MODL /[id number]
--- NOTE | 2018-12-27 16:23 | Progress Note ---
DATE: 12/27/2018 Medicine Progress Note SUBJECTIVE: The patient is still on oxygen. He qualifies for home O2 according to the nursing staff he should qualify. No severe other qualify diagnosis at this time. The patient has severe heart failure which will help him qualify for home O2, but need one more office visit for Case Management. PHYSICAL EXAMINATION: VITAL SIGNS: Temperature 98.1, pulse 73, respiratory rate is 20, blood pressure is 97/69 pulse ox 100% on 2 L nasal cannula. GENERAL: Not in acute distress. Alert and oriented x3. Cooperative on examination. HEENT: Head is normocephalic and atraumatic. Eyes; pupils are equal, round, and reactive to light bilaterally. Extraocular movements are intact bilaterally. Throat, no evidence of erythema or exudates in the posterior pharynx. Has poor dentition. NECK: Supple. Good range of motion. PULMONARY: Positive rales, fine crackles appreciated. CARDIOVASCULAR: Positive S1, S2. No murmurs, rubs, or gallops appreciated. ABDOMEN: Soft, nondistended, and nontender to palpation. Bowel sounds present. MUSCULOSKELETAL: Strength is 5/5 throughout. No evidence of any muscle deficits on examination. No weakness appreciated. NEUROLOGICAL: Cranial nerves II through XII grossly intact. No evidence of any neurological deficits on exam. SKIN: Intact. Warm to touch. Good cap refill. PSYCHIATRIC: Normal affect and mood. EXTREMITIES: No edema. Good range of motion throughout. LAB FINDINGS: Show white count of 6.8, hemoglobin 10.9, hematocrit 33, platelets of 149. INR 2.2. Chemistry; sodium 137, potassium 3.7, chloride 105, bicarb 23, anion gap of 12, BUN is 36, creatinine is 1.4, glucose is 85, calcium is 8.6. MICROBIOLOGY: Blood cultures were negative. Urine cultures were negative. IMAGING STUDIES: Chest x-ray this morning shows no change in the right pulmonary consolidation. Associated pleural effusion cannot be excluded. IMPRESSION: 1. Metabolic encephalopathy secondary to infection, resolved. 2. Community-acquired pneumonia, on IV antibiotics. 3. Congestive heart failure with systolic and diastolic dysfunction with EF of less than 20%. 4. 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 5. Acute kidney injury secondary to dehydration, improved. 6. Lymphadenopathy seen on CT chest. Would need outpatient CT with PCP as an outpatient. Repeat in several months to see if any change. 7. History of atrial fibrillation. PLAN: At this time all cultures are negative. Continue with IV antibiotics. He is being managed by Pulmonary Critical Care. He does qualify for home O2, but I think he will qualify based on his severe heart failure. I have discussed this with Case Management as well as the nursing staff. We will continue with oral diuretics while here in the hospital. Get an INR in the morning. A.m. labs and continue with warfarin for DVT prophylaxis. Home Health, home PT/OT has been ordered. MD JENSEN Keith/MODAlma /[id number]
[2018-12-27] MEDS: WARFARIN SOD 2 MG TAB PO SCH (16:24)
--- NOTE | 2018-12-27 18:55 | NUR ---
PATIENT IS LAYING IN BED WITH O2 VIA NC. SIDE RAILS UP X2, BED IN LOWEST POSITION, AND CALL FERRER WITHIN REACH.
--- NOTE | 2018-12-27 19:00 | NUR ---
RECEIVED PATIENT IN BEDSIDE REPORT. PATIENT RESTING IN BED AT THIS TIME. NO PAIN REPORTED WHILE LAYING STILL, BUT PATIENT REPORTS PAIN IN L HIP WHEN MOVING, NOT NEW ONSET. PROVIDED PILLOWS BETWEEN KNEES TO ATTEMPT TO ALLEVIATE PAIN. NO PAIN MEDS REQUESTED. O2 @ 2L VIA NC. R IJ LINE ASYMPTOMATIC AND CLEAN. BED LOCKED IN LOWEST POSITION. SIDE RAILS UPX2, CALL LIGHT IN REACH.
[2018-12-27] MEDS: ZOLPIDEM TARTRATE 10 MG TAB PO SCH (21:30)
[2018-12-27] MEDS: SIMVASTATIN 40 MG TAB PO SCH (21:30)
[2018-12-28] VITALS: BP 104/61
[2018-12-28 04:00] VITALS: BP 90/67
--- NOTE | 2018-12-28 07:30 | NUR ---
REC'D PATIENT AAOX3, ON ROOM AIR 2L/MIN, RIGHT IJ TO THE RIGHT SIDE OF NECK IS INTACT AND PATENT. SIDE RAILS UP X2, BED IN LOWEST POSITION, AND CALL FERRER WITHIN REACH.
[2018-12-28 08:38] VITALS: BP 101/71
[2018-12-28] MEDS: TAMSULOSIN HCL 0.4 MG CAP PO SCH (09:05)
[2018-12-28] MEDS: ALLOPURINOL 100 MG TAB PO SCH (09:05)
[2018-12-28] MEDS: CHOLECALCIFEROL 1,000 UNIT TAB PO SCH (09:05)
[2018-12-28] MEDS: FINASTERIDE 5 MG TAB PO SCH (09:05)
[2018-12-28] MEDS: GABAPENTIN 300 MG CAP PO SCH (09:05)
[2018-12-28] MEDS: FERROUS SULFATE 325 MG TAB PO SCH (09:05)
[2018-12-28] MEDS: CARVEDILOL 12.5 MG TAB PO SCH (09:05)
[2018-12-28] MEDS: VALSARTAN/SACUBITRIL 24MG/26MG 1 EA TAB PO SCH (09:05)
[2018-12-28] MEDS: ASPIRIN 81 MG ENTERIC COATED PO SCH (09:06)
[2018-12-28] MEDS: CEFEPIME 1GM/NS 0.9% 50 ML 50 ML IV SCH (09:06)
[2018-12-28] MEDS: CITALOPRAM HYDROBROMIDE 20 MG TAB PO SCH (09:06)
[2018-12-28] MEDS: BUMETANIDE 1 MG TAB PO SCH (09:06)
[2018-12-28] MEDS: LORATADINE 10 MG TAB PO SCH (09:06)
--- NOTE | 2018-12-28 11:16 | Progress Note ---
DATE: 12/28/2018 Cardiology Progress Note SUBJECTIVE: The patient has no new complaints this morning. He does endorse a cough and also some shortness of breath. Denies any chest pain. PHYSICAL EXAMINATION: VITAL SIGNS: Temperature 99.4, pulse 70, respiratory rate 18, blood pressure 98/70, oxygen saturation 96% on 3 L nasal cannula. GENERAL: Alert and oriented x3. Resting comfortably in the bed. Does not appear to be in any acute distress. NECK: Mild JVD noted. CARDIOVASCULAR: Regular rate and rhythm. Systolic murmur present. LUNGS: Diminished breath sounds throughout with scattered crackles. ABDOMEN: Soft, nontender. EXTREMITIES: Lower extremities, no edema. CARDIOVASCULAR MEDICATIONS: Simvastatin 20 mg p.o. daily, Coreg 12.5 mg p.o. b.i.d., Entresto one tablet p.o. b.i.d., Bumex 1 mg p.o. daily, warfarin 4 mg p.o. daily, aspirin 81 mg p.o. daily. LABORATORY DATA: No new labs today. TELEMETRY: Ventricularly paced rhythm. IMPRESSION: 1. Sepsis secondary to pneumonia. 2. Atrial fibrillation. 3. Mcabo-hw-mtpiyai systolic heart failure. RECOMMENDATIONS: Continue with the above listed cardiac medications. Upon discharge, this patient is to follow up with me in 1 week. The patient is planned to go home with oxygen. We will continue to follow this patient very closely. Dictated by Aminata España NP MD LIZZY Correa/KAVIN /[id number]
--- NOTE | 2018-12-28 11:36 | Progress Note ---
DATE: 12/28/2018 SUBJECTIVE: The patient is eager to go home. He has no chest pain. He has no dyspnea or cough. PHYSICAL EXAMINATION: VITAL SIGNS: The blood pressure is 101/71, pulse is 62. Saturation is 98% on 3 L. HEENT: Shows no facial swelling or erythema. The nasal mucosa is normal. The oropharynx is normal. LYMPHATIC: Shows no submandibular, cervical, or supraclavicular adenopathy. CARDIAC: Reveals regular rate and rhythm with normal S1, S2. There are no murmurs or rubs heard. LUNGS: Auscultation of lungs reveals rhonchorous breath sounds bilaterally. There is no wheezing. ABDOMEN: Soft, nontender. There is no rebound or guarding. EXTREMITIES: Shows no leg edema or calf tenderness. There is no cyanosis or clubbing. SKIN: Shows no rashes. LABORATORY DATA: White blood cell count is 7.5, hemoglobin is 11.2, platelet count is 157. The BUN to creatinine ratio is normal. The other electrolytes are within normal limits. IMPRESSION: 1. Pneumonia with severe sepsis, present on admission. 2. Blork-rb-txntfgk systolic congestive heart failure. 3. Asbestos-related lung disease. 4. Hypertension. 5. Atrial fibrillation. PLAN: 1. The patient will be discharged home today with p.o. antibiotics. 2. Continue current cardiac regimen. 3. The patient should follow up with Cardiology and Dr. De Luna in 1-2 weeks. MD NICOLA Rosenthal/KAVIN /[id number]
--- NOTE | 2018-12-28 12:41 | NUR ---
ORDER RECEIVED FOR HOME PT. MET W THE PT AT THE BEDSIDE. PT STATES HE DID NOT WANT HOME HEALTH. STATES HE DID NOT NEED PHYSICAL THERAPY AT HOME AND WILL GET BETTER ONCE HE GETS BACK TO HIS NORMAL ROUTINE AT HOME. STATES HE NEEDED A WEEK TO GET BETTER. 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 STATES HE MAY NOT BE ABLE TO DRIVE FOR AWHILE, BECAUSE HE HAD BEEN SO WEAK. STATES HE LIVES WITH HIS AND SON IN A 1 STORY HOME. STATES HE HAD USED HIS 'S ROLLATOR FOR SHOPPING OR DOC VISITS. 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 ENCOURAGED PT TO F/U W HIS PCP AND ASK FOR HH IF HE NEEDS IT POST DISCHARGE. PT VERBALIZED UNDERSTANDING. CM EXPLAINED THE IMM LETTER. IMM LETTER WAS SIGNED AND COPY TO PT AND COPY TO CHART. PT HAD O2 TANKS AT THE BEDSIDE FOR DC HOME.
[2018-12-28] MEDS ORDERED: AUGMENTIN 875-1 EACH PO (12:56)
[2018-12-28 13:00] VITALS: BP 85/58
--- NOTE | 2018-12-28 13:00 | NUR ---
PATIENT'S HOB FLAT TO REMOVE IJ PICC LINE. LEFT PATIENT 10 MINUTES FLAT ON THE BED TO PREVENT COMPLICATIONS. DISCHARGE PAPERS AND PRESCRIPTIONS GIVEN AND EXPLAINED TO HIM. HOME OXYGEN TO BE TAKEN WITH HIM. PATIENT ESCORTED TO SON'S CAR.
--- NOTE | 2018-12-28 20:38 | Discharge Summary ---
FINAL DISCHARGE DIAGNOSES: 1. Metabolic encephalopathy secondary to infection from community-acquired pneumonia, now resolved. 2. Community-acquired pneumonia. 3. Acute exacerbation of congestive heart failure with systolic and diastolic dysfunction with ejection fraction of less than 20%. 4. 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 5. Acute kidney injury secondary to dehydration, resolved. 6. Lymphadenopathy seen on CT chest-we will need outpatient followup. We will repeat CT in about 1-2 months. This could be infectious etiology. I discussed this with the patient and the family at bedside and they verbalized understanding. 7. History of atrial fibrillation. CONSULTANTS: Cardiology and Pulmonary. PHYSICAL EXAMINATION: VITAL SIGNS: Temperature 97, pulse 82, respiratory rate 19, blood pressure is 101/71, pulse ox 98% on 3 L of nasal cannula. LAB FINDINGS: White count 7.5, hemoglobin 11.2, hematocrit is 34, and platelets of 157. Coagulation, PT 26, INR 2.3. Chemistry; sodium 139, potassium 4.1, chloride 105, bicarb 25, anion gap of 13, BUN is 37, creatinine is 1.39, glucose is 102, calcium is 8.9, magnesium 2.4. Troponins were negative. LFTs were within normal range. Lipase was 54. Urinalysis negative. MICROBIOLOGY: Blood and urine cultures were all negative. IMAGING STUDIES: Gallbladder ultrasound performed by the ER shows a cirrhotic liver morphology. No thyromegaly. No evidence of cholelithiasis or cholecystitis. Chest x-ray shows nodularity opacity projecting over the right mid lung and left upper lobe. There is moderate cardiomegaly with mild pulmonary interstitial edema. Opacities in the lower lungs may represent alveolar edema, atelectasis or pneumonia. CT chest was recommended. CT chest performed shows multifocal area peripheral and predominantly depending ground-glass opacity and pathology most notably in the right lower lobe. This is likely due to underlying pneumonia. Multiple bilateral partially calcified pleural plaques corresponding with previously seen opacities in the earlier chest x-ray. Small pleural effusion. Mediastinal hilar lymphadenopathy along with prominent gastrohepatic and periportal lymph nodes. Needs a repeat CT in 4 weeks. I discussed this with the family while in the hospital stay and they verbalized understanding. Chest x-ray on 12/27/2018, shows no change in the right pulmonary consolidation. Associated pleural effusions cannot be excluded. HOSPITAL COURSE: This is an 83-year-old male, who has multiple comorbidities. Of note, he had severe heart failure with systolic and diastolic dysfunction with an EF of less than 20%, who came in with underlying encephalopathy, found to have a whole community-acquired pneumonia on imaging studies. The patient's mental status improved throughout the hospital course. On admission, the patient was concerned to be septic, found to be hypotensive. Further investigation, it seems that the patient has chronic hypotension due to severe heart failure. A central line was placed by the ER physician, but did not require any pressors. The patient actually looks severely dehydrated on examination likely due to diuretics. The patient improved with IV fluid hydration. He was started on broad-spectrum IV antibiotics. Pulmonary and Critical Care was consulted. Blood and urine cultures were found to be negative. The patient improved while he was in the ICU and his mental status was back to normal baseline with no complaints. He was alert and oriented x4. He was transferred to the Medical floor for further management and care. Cardiology was consulted, recommended no change and to continue with diuretics later in the hospital course. The patient also was to continue the same diuretic regimen and cardioprotective medications as per Cardiology's recommendations and their notes. In relation to his chronic hypotension, he remained stable and he was asymptomatic with no issues. His acute kidney injury resolved with IV fluid hydration. He was found to have lymphadenopathy on CT chest and which I discussed this with him on several occasion with the family at bedside and that he needs a repeat CT in about one month to see if this is reactive versus some other etiology. They verbalized understanding. The patient will be discharged on oral Augmentin to complete his antibiotic course for his underlying pneumonia. The patient also has a history of atrial fibrillation. He is on warfarin and rate control medications. On discharge, his rate was well controlled. The patient also had home O2 arranged for him by Case Management. The patient qualified for home O2. On discharge, the patient was cleared for discharge from Pulmonary and Cardiology. On the day of discharge, vital signs stable, labs reviewed and stable. The patient was seen, evaluated, and examined thoroughly on the day of discharge. No other complaints. 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 MEDICATIONS: See med reconciliation form including Augmentin 875 mg one tab p.o. b.i.d. x7 days. DISPOSITION: Home. CONDITION: Stable. DIET: Heart healthy. In the event of any worsening symptoms, the patient was advised to come back to the ED for further evaluation. Discharge summary took greater than 35 minutes. MD JENSEN Keith/MODL /[id number]
== END 2018-12-28 13:17 | disposition home or self-care (01) | DRG 871 ==
LOC: ER 10:57 → ERHOLD 15:56 → ICU 22:05 → MED/SURG3 12-25 14:04 → ICU 12-28 07:01 → MED/SURG3 12-28 07:19
PROVIDERS: ADMIT Internal Medicine; ATTEND Internal Medicine
PROC: 02HV33Z Insertion of Infusion Device into Superior Vena Cava, Percutaneous Approach (ICD-10-PCS; principal; 2018-12-23)
DX: A41.9 Sepsis, unspecified organism (principal); J18.9 Pneumonia, unspecified organism; I50.43 Acute on chronic combined systolic (congestive) and diastolic (congestive) heart failure; R65.21 Severe sepsis with septic shock; G93.41 Metabolic encephalopathy; N17.9 Acute kidney failure, unspecified; I42.9 Cardiomyopathy, unspecified; I11.0 Hypertensive heart disease with heart failure; I95.89 Other hypotension; R59.1 Generalized enlarged lymph nodes; I48.91 Unspecified atrial fibrillation; Z79.01 Long term (current) use of anticoagulants; I25.10 Atherosclerotic heart disease of native coronary artery without angina pectoris; J47.9 Bronchiectasis, uncomplicated; J61 Pneumoconiosis due to asbestos and other mineral fibers; N40.0 Benign prostatic hyperplasia without lower urinary tract symptoms; E86.0 Dehydration
CPT/HCPCS: 36415; 36555; 36556; 71045; 71250; 76705; 80048; 80053; 81001; 82150; 82550; 82553; 83605; 83690; 83735; 83880; 84484; 85025; 85610; 85730; 87040; 87086; 93005; 93306; 94640; 97139; 99284; J0692; J1160; J1940; J2543; J3370; J7030; J7040; J7050

== ENCOUNTER → 2019-01-03 | Outpatient (CLI) | payer MEDICARE ==
[~2019-01-03] MED LIST changes: +AUGMENTIN 875-1 EACH PO; +ENTRESTO; +FINASTERIDE5 MG PO
--- NOTE | 2019-01-03 11:36 | Diagnostic Imaging Report ---
EXAMINATION: CHEST 2 VIEWS INDICATION: Pneumonia. COMPARISON: Chest radiograph 12/27/2018. FINDINGS: TUBES and LINES: Left-sided AICD device in unchanged position. Interval removal of right subclavian central venous catheter. LUNGS: Lungs are well inflated. Interval partial clearing of right mid and lower lung zone consolidative opacity with patchy residual opacities. Mild patchy left basilar opacity. No evidence of pulmonary edema. Central vascular congestion. PLEURA: Small right pleural effusion. No evidence of pneumothorax. HEART AND MEDIASTINUM: The cardiomediastinal silhouette is moderately enlarged. BONES AND SOFT TISSUES: No acute osseous abnormality. UPPER ABDOMEN: No free air under the diaphragm. IMPRESSION: Interval decrease in consolidative opacity in the right mid and lower lungs, consistent with known pneumonia. Suggest follow-up chest radiograph in 6-8 weeks to assess for resolution. Signed by: Dr. Regla Gonzalez MD on 01/03/2019 11:33 AM
== END ==
LOC: RAD 11:02
DX: J18.9 Pneumonia, unspecified organism (principal)
CPT/HCPCS: 71046

== ENCOUNTER 2019-09-17 11:09 | Observation (INO) | payer MEDICARE ==
[~2019-09-17] VITALS: Ht 188 cm; Wt 86.2 kg
--- NOTE | 2019-09-17 05:46 | NUR ---
BEDSIDE REPORT RECEIVED FROM DAY RN. PT IS ALERT AND ORIENTED X3. RESPIRATIONS EVEN AND UNLABORED. TELE ON. PT HAS AICD.PT REPORTS SEES DR ALMAZAN SQL ENGINEER.PT HAS HX BPH- VOID PER BATHROOM- URINE CLEAR YELLOW. NO EDEMA LOWER EXTREMITIES. CALL LIGHT WITHIN REACH. BED LOCKED AND IN LOW POSITION. BED ALARM ON. PT USES CANE - GAIT UNSTEADY.22G SL LEFT FOREARM.
[2019-09-17 11:46] LABS: BASOPHILS # (AUTO) 0.1 (0.0-0.1); BASOPHILS % 0.9 % (0.0-1.0); HEMATOCRIT 41.1 % (38.2-49.6); HEMOGLOBIN 13.1 g/dL (14.0-18.0); LYMPHOCYTES # (AUTO) 1.5 (1.0-3.2); LYMPHOCYTES % 20.9 % (18.0-39.1); MEAN CORPUSCULAR HGB CONC 31.9 g/dL (31-35); MEAN CORPUSCULAR VOLUME 100.2 fL (81-99); MONOCYTES # (AUTO) 0.8 (0.2-0.8); MONOCYTES % 11.9 % (4.4-11.3); NEUTROPHILS # (AUTO) 4.6 (2.1-6.9); NEUTROPHILS % 65.9 % (38.7-80.0); PLATELET COUNT 140 x10e3/uL (140-360); RED CELL DISTRIBUTION WIDTH 16.1 % (11.7-14.4)
[2019-09-17 12:00] LABS: PARTIAL THROMBOPLASTIN TIME 49.5 seconds (23.8-35.5)
[2019-09-17 12:06] LABS: ALBUMIN 4.2 g/dL (3.5-5.0); ALBUMIN/GLOBULIN RATIO 1.5 (0.8-2.0); ANION GAP 14.4 mmol/L (8-16); CALCIUM 9.8 mg/dL (8.4-10.2); CREATININE, SERUM 3.14 mg/dL (0.72-1.25); POTASSIUM 3.4 mmol/L (3.5-5.1)
[2019-09-17 12:09] LABS: INR 6.79
[2019-09-17 12:10] LABS: PROTHROMBIN TIME 64.7 seconds (11.9-14.5)
[2019-09-17 12:13] LABS: CREATINE KINASE MB 8.2 ng/mL (0-5.0)
[2019-09-17] MEDS ORDERED: PHYTONADIONE 10 MG/ML AMP SQ ONE ×2 (12:30→22:15)
--- NOTE | 2019-09-17 13:02 | Diagnostic Imaging Report ---
CT BRAIN WO HISTORY: Possible stroke, slurred speech, fall COMPARISON: Report from head CT dated 06/07/2015 Technique: Noncontrast axial scans were obtained from skull base to the vertex. Coronal and sagittal reconstructions obtained from the axial data. One or more of the following dose reduction techniques were used: Automated exposure control, adjustment of the mA and/or kV according to patient size, and/or utilization of iterative reconstruction technique. DISCUSSION: Scalp/Skull: Unremarkable. Brain sulci: Mildly prominent. Ventricles: Compensatory dilatation. Extra-axial spaces: No masses or fluid collections. Carotid siphon calcifications are present. Parenchyma: Mild bilateral deep white matter hypodensity is likely chronic microvascular ischemic change. Otherwise, no masses, hemorrhage, or large vascular territory acute infarct. Dural sinuses: No abnormal densities. Sellar/Suprasellar region: Intact. Skull base: Intact. Incidental findings: Bilateral ocular lens replacement. The right frontal sinus and right frontonasal recess are opacified. Mild right anterior ethmoid air cell mucosal thickening is present as well. IMPRESSION: 1. No acute intracranial abnormalities. 2. Mild supratentorial chronic microvascular ischemic change. Mild generalized cerebral volume loss. Signed by: Dr. Graeme Tabares M.D. on 09/17/2019 12:58 PM
--- NOTE | 2019-09-17 13:11 | Diagnostic Imaging Report ---
CT CERVICAL SPINE WO HISTORY: Fall, trauma COMPARISON: Concurrent head CT and chest radiograph TECHNIQUE: CT of the cervical spine without contrast. Sagittal and coronal reformations were created. One or more of the following dose reduction techniques were used: Automated exposure control, adjustment of the mA and/or kV according to patient size, and/or utilization of iterative reconstruction technique. FINDINGS: Mild bone demineralization limits evaluation. Cervical lordosis is slightly reversed at C3-C4. There is no significant scoliosis. No definite acute fracture or compression deformity is seen. The craniocervical junction is intact. No gross spinal canal masses are seen. The paravertebral and paraspinal soft tissues are unremarkable. Multilevel advanced spondylotic changes are present from C3 to C7. Grade 1 anterolisthesis of C2 on C3 is due to prominent right facet arthrosis. There is at least mild degenerative canal stenosis at C3-C4 and C4-C5 due to posterior disc osteophyte complexes. Mild to moderate atlantoaxial arthrosis is present as well. Left subclavian leads are partially imaged. Right pleural effusion is also partially imaged. Approximately 1.4 cm calcification adjacent to the right submandibular gland hilum is likely a sialolith. Mild bilateral carotid bulb calcified plaque is present. IMPRESSION: 1. No acute osseous abnormalities. 2. Multilevel advanced spondylosis. Signed by: Dr. Graeme Tabares M.D. on 09/17/2019 1:08 PM
[2019-09-17] MEDS ORDERED: SODIUM CHLORIDE 0.9% 1000ML 1,000 ML IV SCH (13:27)
--- NOTE | 2019-09-17 13:29 | Diagnostic Imaging Report ---
Chest, 1 view, 09/17/2019. History: COPD, CAD. Comparison: 01/03/2019. Findings: The cardiomediastinal silhouette and pulmonary vasculature are prominent with hazy bilateral perihilar and bibasilar opacities, with blunting of the right posterior sulcus. Left subclavian AICD is unchanged in position. There are no acute osseous or soft tissue abnormalities. Impression: Findings are suggestive of CHF with bibasilar atelectasis and small right pleural effusion. Signed by: Jamin Resendiz on 09/17/2019 1:26 PM
[2019-09-17 16:34] VITALS: BP 105/72
--- NOTE | 2019-09-17 19:53 | NUR ---
walking rounds complete, report given to oncoming nurse.
[2019-09-17 20:45] LABS: PROTHROMBIN TIME 67.2 seconds (11.9-14.5)
[2019-09-17 20:49] LABS: INR 7.12
[2019-09-17 21:00] VITALS: BP 105/72
[2019-09-17 21:04] VITALS: BP 89/56
--- NOTE | 2019-09-17 22:07 | NUR ---
PT 67.2 [address] HOLLIS . NEW ORDER FOR VIT K RECEIVED.WILL CONTINUE TO MONITOR LABS. TO REPEAT LAB IN AM.
[2019-09-17 23:51] VITALS: BP 130/90
[2019-09-18 04:00] VITALS: BP 130/80
--- NOTE | 2019-09-18 05:00 | NUR ---
LAB CALLED PT 46.7 INR 4.53 LAB IMPROVING.
[2019-09-18 05:29] LABS: BASOPHILS # (AUTO) 0.1 (0.0-0.1); BASOPHILS % 0.7 % (0.0-1.0); HEMATOCRIT 36.4 % (38.2-49.6); HEMOGLOBIN 11.9 g/dL (14.0-18.0); LYMPHOCYTES # (AUTO) 1.2 (1.0-3.2); LYMPHOCYTES % 17.2 % (18.0-39.1); MEAN CORPUSCULAR HEMOGLOBIN 31.9 pg (28-32); MEAN CORPUSCULAR HGB CONC 32.7 g/dL (31-35); MEAN CORPUSCULAR VOLUME 97.6 fL (81-99); MONOCYTES # (AUTO) 0.9 (0.2-0.8); MONOCYTES % 12.7 % (4.4-11.3); NEUTROPHILS # (AUTO) 4.8 (2.1-6.9); NEUTROPHILS % 69.1 % (38.7-80.0); PLATELET COUNT 123 x10e3/uL (140-360); RED BLOOD COUNT 3.73 x10e6/uL (4.3-5.7)
[2019-09-18 05:34] LABS: INR 4.53
[2019-09-18 05:35] LABS: PROTHROMBIN TIME 46.7 seconds (11.9-14.5)
[2019-09-18 05:38] LABS: ANION GAP 14.1 mmol/L (8-16); CALCIUM 8.9 mg/dL (8.4-10.2); CREATININE, SERUM 2.63 mg/dL (0.72-1.25); POTASSIUM 3.1 mmol/L (3.5-5.1)
[2019-09-18 07:30] LABS: ANISOCYTOSIS SLIGHT; PLATELET ESTIMATE ADEQUATE; PLATELET MORPHOLOGY COMMENT NORMAL; RBC MORPHOLOGY COMMENT NORMAL
--- NOTE | 2019-09-18 07:35 | NUR ---
H&P cc: coumadin toxicity HPI: 84yoM, PCP , card , had a fall,with dizziness, and developed coumadin toxicity. 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 PSx:none Alleriges; see emr FH/SH: ; hx cigs; FH of Hypertension and diabetes. meds; see MAR ROS: no f/c/s/N/V/D/SINHA/cp/sob/skin rash/back pain/vision changes/focal limb weakness v/s revd PE tired appearing anicteric ns1s2 mod bs soft nt nd no e/t skin dry n.affect a&ox3; [place] labs/meds revd A/P: Supratherapeutic inr- vitK RINA in CKD3- near baseline; Hypokalemia- recheck PAF- inr therapeutic; HR controlled; Combined systolic and diastolic CHF Hypertensive heart ds BPH- flomax CAD- cont home meds; Prop: inr therapeutic; pepcid dispo: f/u inr this pm. use vitK; Gabe Womack MD, PHD.
[2019-09-18 07:59] VITALS: BP 102/65
[2019-09-18 08:39] VITALS: BP 102/65
[2019-09-18] MEDS ORDERED: FERROUS SULFATE 325 MG TAB PO SCH (09:00)
[2019-09-18] MEDS ORDERED: ALLOPURINOL 100 MG TAB PO SCH (09:00)
[2019-09-18] MEDS ORDERED: FINASTERIDE 5 MG TAB PO SCH (09:00)
[2019-09-18] MEDS ORDERED: CARVEDILOL 12.5 MG TAB PO SCH (09:00)
--- NOTE | 2019-09-18 09:55 | NUR ---
ASSESSMENT: Spiritual concern Pt thankful for his son who was home when he fell. Pt finds meaning in sharing his nico. Intervention: Provided hospitality and empathic listening. Facilitated illness review and storytelling. Provided information on how to reach supervisor telephone information, if needed. Outcome: Pt expressed appreciation for visit. No need to follow at this time. VIRIDIANA JANSEN Test Design Engineer Spiritual Care Department O: [phone]
[2019-09-18 16:02] VITALS: BP 90/62
[2019-09-18 16:40] LABS: INR 2.66; PROTHROMBIN TIME 30.4 seconds (11.9-14.5)
--- NOTE | 2019-09-18 19:11 | Consultation ---
DATE OF CONSULTATION: 09/18/2019 Cardiology Consultation HISTORY OF PRESENT ILLNESS: This is an 84-year-old man with a history of systolic congestive heart failure, status post implantable cardioverter-defibrillator, paroxysmal atrial fibrillation on warfarin, coronary artery disease, hypertension, and hyperlipidemia, who presented to the emergency department after a syncopal episode. The patient states that he took Ambien the night before, woke up and found himself in the bathroom and fell onto the bathtub with injury. He denies any palpitations, chest pain, or shortness of breath at that time. REVIEW OF SYSTEMS: A 12-point review of system was conducted and is negative except as stated above in the HPI. PAST MEDICAL HISTORY: As stated above in the HPI. PAST SURGICAL HISTORY: Implantable cardioverter-defibrillator. SOCIAL HISTORY: No illicit drug, alcohol, or tobacco use. ALLERGIES: OFELIA INHIBITORS. MEDICATIONS: See medication reconciliation form. PHYSICAL EXAMINATION: VITAL SIGNS: Temperature is 97.7, heart rate is 60, respirations are 20, blood pressure is 102/65, and oxygen saturation 97% on room air. GENERAL: Well-appearing, well-built, no apparent distress. Alert and oriented x3. HEAD: Normocephalic. Extraocular muscles are intact. NECK: No JVD. No bruits. CARDIOVASCULAR: Irregularly irregular. Normal rate. LUNGS: Clear to auscultation bilaterally. No wheezing or rales. ABDOMEN: Soft, nontender, and nondistended. EXTREMITIES: No clubbing, cyanosis, or edema. VASCULAR: 2+ pulses. SKIN: Warm, dry, and intact. NEUROLOGIC: No focal deficits noted. LABORATORY DATA: All laboratory data reviewed. Hemoglobin is 11.9. Creatinine is 2.63 and potassium is 3.1. Creatine kinase is 646. Troponin is 0.023. BNP is mildly elevated at 379. INR was 6.79 after vitamin K come down to 4.5. IMPRESSION: 1. Supratherapeutic INR. 2. Syncope. 3. Chronic systolic congestive heart failure. 4. Anemia. 5. Chronic kidney disease. 6. Rhabdomyolysis. RECOMMENDATIONS: No clear cardiac cause at this point in time for his syncopal event. Likely given the fact that he is 84 with multiple comorbidities and took Ambien, recommend discontinuation. Continue current cardiovascular medications with the exception of warfarin. Vitamin K has been given. Would not give another dose at this point in time. Recheck an INR tomorrow. Titrate for an INR to 2 to 3. DO MARISEL Barahona/KAVIN /[id number]
--- NOTE | 2019-09-18 19:59 | NUR ---
pt discharged home, pt was asked to follow up with her PCP, iv site removed no swelling no redness to site.
[2019-09-18] MEDS ORDERED: SIMVASTATIN 40 MG TAB PO SCH (21:00)
[2019-09-18] MEDS ORDERED: ZOLPIDEM TARTRATE 10 MG TAB PO SCH (21:00)
--- NOTE | 2019-09-19 07:23 | NUR ---
D/C summary Principal Dx Supratherapeutic inr- vitK RINA in CKD3- near baseline; Hypokalemia- recheck Secondary Dx: PAF- inr therapeutic; HR controlled; Combined systolic and diastolic CHF Hypertensive heart ds BPH- flomax CAD- cont home meds; Prop: inr therapeutic; pepcid dispo: f/u inr this pm. use vitK; d/c home f/u pcp 1 week and 1 week stable d/c>35mins Gabe Womack MD, PHD.
== END 2019-09-18 19:18 | disposition home or self-care (01) ==
LOC: ER 11:09 → ERHOLD 13:41 → MED/SURG2 15:28
PROVIDERS: ADMIT Internal Medicine; ATTEND Internal Medicine
DX: D68.9 Coagulation defect, unspecified (principal); T45.515A Adverse effect of anticoagulants, initial encounter; N17.9 Acute kidney failure, unspecified; I13.0 Hypertensive heart and chronic kidney disease with heart failure and stage 1 through stage 4 chronic kidney disease, or unspecified chronic kidney disease; N18.3 Chronic kidney disease, stage 3 (moderate); I50.42 Chronic combined systolic (congestive) and diastolic (congestive) heart failure; N40.0 Benign prostatic hyperplasia without lower urinary tract symptoms; I25.10 Atherosclerotic heart disease of native coronary artery without angina pectoris; I48.0 Paroxysmal atrial fibrillation; Z79.01 Long term (current) use of anticoagulants; E87.6 Hypokalemia; Z95.0 Presence of cardiac pacemaker; M62.82 Rhabdomyolysis; E78.5 Hyperlipidemia, unspecified
CPT/HCPCS: 36415 ×2; 70450; 71045; 72125; 80048; 80053; 82550; 82553; 83880; 84132; 84484; 85025 ×2; 85610 ×2; 85730; 93005; 99284; G0378 ×2; J3430

== ENCOUNTER 2019-09-20 04:49 | Inpatient (IN) | payer MEDICARE ==
[~2019-09-20] VITALS: Ht 188 cm; Wt 88.9 kg
[2019-09-20 05:26] LABS: BASOPHILS # (AUTO) 0.1 (0.0-0.1); BASOPHILS % 0.6 % (0.0-1.0); HEMATOCRIT 40.4 % (38.2-49.6); HEMOGLOBIN 13.2 g/dL (14.0-18.0); LYMPHOCYTES # (AUTO) 1.5 (1.0-3.2); LYMPHOCYTES % 16.9 % (18.0-39.1); MEAN CORPUSCULAR HEMOGLOBIN 31.8 pg (28-32); MEAN CORPUSCULAR HGB CONC 32.7 g/dL (31-35); MEAN CORPUSCULAR VOLUME 97.3 fL (81-99); NEUTROPHILS % 69.9 % (38.7-80.0); PLATELET COUNT 148 x10e3/uL (140-360); RED BLOOD COUNT 4.15 x10e6/uL (4.3-5.7); RED CELL DISTRIBUTION WIDTH 16.4 % (11.7-14.4)
[2019-09-20 05:32] LABS: INR 1.51; PARTIAL THROMBOPLASTIN TIME 33.7 seconds (23.8-35.5); PROTHROMBIN TIME 19.2 seconds (11.9-14.5)
[2019-09-20 05:41] LABS: ALBUMIN/GLOBULIN RATIO 1.4 (0.8-2.0); ANION GAP 17.4 mmol/L (8-16); CALCIUM 9.5 mg/dL (8.4-10.2); CREATININE, SERUM 2.93 mg/dL (0.72-1.25); POTASSIUM 4.4 mmol/L (3.5-5.1)
[2019-09-20 05:47] LABS: CREATINE KINASE MB 5.6 ng/mL (0-5.0)
--- NOTE | 2019-09-20 05:52 | NUR ---
All clothing removed and patient placed in paper scrubs.
--- NOTE | 2019-09-20 06:59 | NUR ---
Report to LIZET Good.
[2019-09-20] MEDS ORDERED: SODIUM CHLORIDE FLUSH 10 ML SYR INJ PRN (07:00)
--- NOTE | 2019-09-20 07:03 | Diagnostic Imaging Report ---
EXAM: CT Chest WITHOUT contrast INDICATION: Chest pain COMPARISON: Chest x-ray 09/17/2019 TECHNIQUE: Chest was scanned utilizing a multidetector helical scanner from the lung apex through the level of the adrenal glands without administration of IV contrast. Absence of intravenous contrast decreases sensitivity for detection of lymphadenopathy and vascular pathology. Coronal and sagittal reformations were obtained. Routine protocol was performed. IV CONTRAST: None COMPLICATIONS: None RADIATION DOSE: Total DLP: 561 mGy*cm Estimated effective dose: (DLP x 0.014 x size factor) mSv CTDIvol has been reviewed. It is below the limits set by the Radiation Protocol Committee (RPC). Dose modulation, iterative reconstruction, and/or weight based adjustment of the mA/kV was utilized to reduce the radiation dose to as low as reasonably achievable. FINDINGS: LINES/ TUBES: Left chest wall cardiac device with leads in the right atrium, right ventricle, and coronary sinus.. LUNGS AND AIRWAYS: The dependent right lung atelectasis and partial atelectasis in the left lung base. Prominent pulmonary interstitial lung markings. Airways are normal. PLEURA: Large simple right and small left pleural effusions. Calcified pleural plaques. HEART AND MEDIASTINUM: The thyroid gland is normal. No mediastinal, hilar or axillary lymphadenopathy. The heart is moderately enlarged. There is no pericardial effusion. Left ventricular epicardial calcifications. UPPER ABDOMEN: Nodular hepatic surface contour. Small volume ascites. BONES: Healed bilateral rib fractures. Degenerative changes in the spine. SOFT TISSUES: Unremarkable. IMPRESSION: Moderate cardiomegaly, large simple right and small left pleural effusions, and mild pulmonary interstitial edema. Coronary artery calcific atherosclerosis. Left ventricular epicardial calcifications of the chronic sequelae of myocardial infarction along the distribution of the left anterior descending coronary artery.. Findings of hepatic cirrhosis. Small volume ascites. Calcified pleural plaques of as best as related pleural disease. Signed by: Baljinder Scott DO on 09/20/2019 7:00 AM
--- NOTE | 2019-09-20 07:14 | NUR ---
H&P cc: sob HPI: 84yoM, PCP , card , with recent fall and supertherapeutic inr, now with sob, found to have pleural effusion and worsened renal fn. 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 Supertherapeutic inr, hypokalemia PSx:none Alleriges; see emr FH/SH: ; hx cigs; FH of Hypertension and diabetes. meds; see MAR ROS: no f/c/s/N/V/D/SINHA/cp/sob/skin rash/back pain/vision changes/focal limb weakness v/s revd PE tired appearing anicteric ns1s2 Reduced BS soft nt nd no e/t skin dry n.affect a&ox3; [place] labs/meds revd A/P: Large right effusion Pulmonary edema- lasix RINA in CKD3- monitor PAF- inr low; but hold warfarin for thoracentesis. Combined systolic and diastolic CHF Hypertensive heart ds BPH- flomax CAD- cont home meds; Prop: hold warfarin for thoracentesis; pepcid dispo:iv lasix; IR for drainage; Gabe Womack MD, PHD.
[2019-09-20 08:00] VITALS: BP 103/68
--- NOTE | 2019-09-20 08:10 | NUR ---
Recvd patient from ER, AAOx3, Denies any pain or SOB this time, on 02 3 L NC, big bruise on left lateral side of abdomen, patient says its from fall which is happened from 1 week before, mild laceration on left elbow area. Not in any distress, call light in reach, keep monitoring
[2019-09-20 09:56] VITALS: BP 103/68
[2019-09-20] MEDS: FERROUS SULFATE 325 MG TAB PO SCH (11:59)
[2019-09-20] MEDS: LORATADINE 10 MG TAB PO SCH (11:59)
[2019-09-20] MEDS: FUROSEMIDE INJ 10 MG/ML 4 ML VIAL IV SCH ×2 (11:59→17:24)
[2019-09-20] MEDS: ALLOPURINOL 100 MG TAB PO SCH (11:59)
[2019-09-20] MEDS: FINASTERIDE 5 MG TAB PO SCH (11:59)
[2019-09-20] MEDS: SIMVASTATIN 40 MG TAB PO SCH (11:59)
[2019-09-20] MEDS: CARVEDILOL 12.5 MG TAB PO SCH ×2 (11:59→17:24)
[2019-09-20 12:00] VITALS: BP 109/64
[2019-09-20 16:00] VITALS: BP 102/58
[2019-09-20 20:00] VITALS: BP 98/71
[2019-09-20 20:29] VITALS: BP 98/71
[2019-09-20] MEDS: ZOLPIDEM TARTRATE 10 MG TAB PO SCH (22:28)
[2019-09-21] VITALS (8 sets, daily range): BP systolic 101–112; BP diastolic 61–78
--- NOTE | 2019-09-21 05:39 | NUR ---
IM- progress note O/N see below ROS: no f/c/s/N/V/D/SINHA/cp/sob/skin rash/back pain/vision changes/focal limb weakness v/s revd PE tired appearing anicteric ns1s2 Reduced BS soft nt nd no e/t skin dry n.affect a&ox3; [place] labs/meds revd A/P: Large right effusion Pulmonary edema- lasix RINA in CKD3- monitor PAF- inr low; but hold warfarin for thoracentesis. Combined systolic and diastolic CHF Hypertensive heart ds BPH- flomax CAD- cont home meds; Prop: hold warfarin for thoracentesis; pepcid dispo:iv lasix; IR for drainage; 09-20 check BMP; skin changes?; check LFTs and ammonia; Gabe Womack MD, PHD.
[2019-09-21 07:02] LABS: ANION GAP 15.1 mmol/L (8-16); CALCIUM 9.1 mg/dL (8.4-10.2); CREATININE, SERUM 2.87 mg/dL (0.72-1.25); POTASSIUM 4.1 mmol/L (3.5-5.1)
--- NOTE | 2019-09-21 07:08 | NUR ---
report given to oncoming nurse, patient is resting in bed. bed is in lowest position and call light is within reach.
--- NOTE | 2019-09-21 07:15 | NUR ---
RECD PT IN BED RESTING NO S/S DISCOMFORT,[address] NO SOB NOTED.
[2019-09-21] MEDS: FUROSEMIDE INJ 10 MG/ML 4 ML VIAL IV SCH ×2 (08:14→16:35)
[2019-09-21] MEDS: LORATADINE 10 MG TAB PO SCH (08:14)
[2019-09-21] MEDS: SIMVASTATIN 40 MG TAB PO SCH (08:15)
[2019-09-21] MEDS: FERROUS SULFATE 325 MG TAB PO SCH (08:15)
[2019-09-21] MEDS: ALLOPURINOL 100 MG TAB PO SCH (08:15)
[2019-09-21] MEDS: CARVEDILOL 12.5 MG TAB PO SCH ×2 (08:15→16:35)
[2019-09-21] MEDS: FINASTERIDE 5 MG TAB PO SCH (08:15)
--- NOTE | 2019-09-21 13:00 | NUR ---
PT CALLED C/O SOB ,O2 SATS 97%,NO SOB NOTED,REQUESTING DR ESPINOZA BE CONSULTED,PAGED DR HOLLIS.
--- NOTE | 2019-09-21 13:30 | NUR ---
SPOKE WITH DR HOLLIS RETURNED CALL ORDERS WRITTEN.
[2019-09-21 15:12] LABS: ALBUMIN 3.8 g/dL (3.5-5.0); BILIRUBIN,DIRECT 1.1 mg/dL (0.0-0.5)
--- NOTE | 2019-09-21 18:35 | NUR ---
DR LY HERE. Addendum: 09/24/19 at 1634 by Caitlyn De Souza RN LEONOR PT
--- NOTE | 2019-09-21 18:50 | NUR ---
pulmonary [id number] dictated rec: recheck INR, tentative thoracentesis thanks!
--- NOTE | 2019-09-21 19:07 | NUR ---
PT UP IN BED NO SOB NOTED O24L NC IN PLACE.
--- NOTE | 2019-09-21 19:20 | NUR ---
received report from day nurse. patient is resting comfortably in the bed. Bed is in lowest position and call light is within reach. continues on oxygen via the nasal cannula. denies pain. will continue to monitor patient.
--- NOTE | 2019-09-21 21:47 | Consultation ---
DATE OF CONSULTATION: 09/21/2019 Pulmonary Medicine Consultation REASON FOR REFERRAL: Shortness of breath. HISTORY OF PRESENT ILLNESS: Mr. Cutler is a pleasant 84-year-old gentleman with shortness of breath. The patient is well known to me from multiple encounters in the past. The patient presented on September 20, 2019, with shortness of breath. The patient is having increased shortness of breath over a couple of days. The patient did not respond very easily to his outpatient therapy. The patient on chest x-ray had CHF, moderate noted, possibly of pleural effusion on the right side. The patient subsequently had a CT chest, which confirmed a large right pleural effusions, small left pleural effusion. The patient also had the edema and ground-glass opacities as well as suspicion of asbestosis based on bilateral pleural plaques as well as some suspicion for hepatic cirrhosis and small volume ascites. At this point, here with shortness of breath. He was admitted, I am consulted. PAST MEDICAL HISTORY: Atrial fibrillation, CHF, acute on systolic chronic 20% to 15% EF, BPH status post TURP, hypertension, hyperuricemia. MEDICATIONS: Medication list reviewed per the chart record. Of note, his diuretic dose is Lasix 40 mg once a day. Metolazone 5 mg a day. ALLERGIES: OFELIA INHIBITOR. SOCIAL HISTORY: Smoked for only 10 years at one pack per day, but quit long ago. No alcohol. No drugs. 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 Hobbies include carpentry. FAMILY HISTORY: Noncontributory. REVIEW OF SYSTEMS: GENERAL: No weight loss. HEENT: No mouth ulcers. OPHTHALMOLOGIC: No floaters. ENDOCRINE: No thyroid disease. PULMONARY: No asthma. CARDIAC: No heart attack. GI: No constipation. : No blood in urine. NEUROLOGIC: No seizures. DERMATOLOGIC: No rash. OBJECTIVE: VITAL SIGNS: Afebrile. Vital signs noted and reviewed per the chart record. GENERAL: In no acute distress. Alert and calm. He has trouble finishing sentences due to shortness of breath. HEENT: Normocephalic, atraumatic. NECK: Supple. Throat midline. LUNGS: Bilateral air entry, decreased breath sounds at bases. CARDIOVASCULAR: S1, S2. No murmurs, rubs, or gallops. ABDOMEN: Soft, nontender. EXTREMITIES: No clubbing. No cyanosis. There is only trace edema. INTEGUMENT: No rash. No purpura. LABORATORY DATA: 2.7 creatinine, 58 BUN, 27 bicarbonate. 8.6 white count, 40 hematocrit, platelets 148. INR 1.51. IMPRESSION: 1. Shortness of breath, multifactorial. 2. Gsvkt-pt-xpcnuor systolic heart failure, ejection fraction of 15% to 20%. 3. Chronic kidney disease, advanced . 4. Warfarin coagulopathy, warfarin on hold. 5. Possible chronic obstructive pulmonary disease by history. 6. History of mediastinal lymphadenopathy. 7. Bilateral pleural plaques, asbestos related suggested. 8. Benign prostatic hyperplasia, status post TURP. 9. Hypertension. 10. Hyperuricemia. 11. Radiographic bronchiectasis. Continue hold off warfarin. Thoracentesis will try to schedule. Recheck INR another time. Continue diuretics as kidneys tolerate. I discussed with the patient nursing. I will do thoracentesis at bedside if it is emergency, although the patient can wait to have a better team work mechanics if Interventional Radiology can do it, if he can wait till tomorrow. Thank you very much, Dr. Gabe Womack for this consult. Please call for questions. MD CRISTIAN Gotti/KAVIN /[id number]
[2019-09-21] MEDS: ZOLPIDEM TARTRATE 10 MG TAB PO SCH (21:50)
[2019-09-22] VITALS (8 sets, daily range): BP systolic 94–106; BP diastolic 55–73
--- NOTE | 2019-09-22 03:12 | Consultation ---
DATE OF CONSULTATION: 09/20/2019 Cardiology Consult Note REASON FOR CONSULT: CHF. CHIEF COMPLAINT: Shortness of breath. HISTORY OF PRESENT ILLNESS: An 84-year-old man with history of atrial fibrillation, on warfarin and chronic systolic heart failure, who presents with worsening shortness of breath and fall. Denies any chest pain. He says he was taking his medications. Denies any syncope. PAST MEDICAL HISTORY: Chronic systolic and diastolic CHF, EF 20%; paroxysmal atrial fibrillation; hypertension; hyperlipidemia; CKD; CAD with previous NC. SOCIAL HISTORY: He does not smoke, drink, or abuse drugs. FAMILY HISTORY: Noncontributory. OUTPATIENT MEDICATIONS: Reviewed. ALLERGIES: REVIEWED. REVIEW OF SYSTEMS: As per HPI, otherwise negative. PHYSICAL EXAMINATION: VITAL SIGNS: Temperature afebrile, pulse 80, respiratory rate 18, blood pressure 112/78, saturating 95% on 4 L nasal cannula. GENERAL: An elderly man, in no acute distress. CARDIOVASCULAR: Regular rate and rhythm. No murmurs, rubs, or gallops. LUNGS: Bilateral crackles. ABDOMEN: Soft, nontender, nondistended. NEURO AND PSYCH: Alert and oriented to person, place, and time. Normal affect. INPATIENT MEDICATIONS: Reviewed. LABORATORY DATA: Reviewed. Troponin negative. BNP 497. Creatinine 2.8. TELEMETRY DATA: Reviewed, shows paced rhythm. ASSESSMENT AND PLAN: 1. Beopl-xn-jtixfvq systolic and diastolic congestive heart failure, EF less than 20%. 2. History of paroxysmal atrial fibrillation, on Coumadin. 3. Hypertension. 4. Coronary artery disease, status post myocardial infarction in the past. PLAN: Continue IV diuresis. He has renal function. We will monitor electrolytes and renal function closely. INR is 1.5 on presentation. We will discuss using a NOAC instead of Coumadin if the patient is amenable. Thank you for this consult. We will continue to follow. MD SARAH Bravo/KAVIN /[id number]
--- NOTE | 2019-09-22 03:27 | Progress Note ---
DATE: 09/21/2019 Cardiology Progress Note SUBJECTIVE: No major events overnight. Breathing somewhat better. OBJECTIVE: VITAL SIGNS: Temperature afebrile, pulse 80, respiratory rate 18, blood pressure 105/55, saturating 96% on 4 L. GENERAL: Elderly male, in no acute distress. CARDIOVASCULAR: Regular rate and rhythm. No murmurs, rubs, or gallops. LUNGS: Bilateral crackles. Decreased breath sounds at bilateral bases. ABDOMEN: Soft, nontender, nondistended. NEURO AND PSYCH: Alert and oriented to person, place, and time. Normal affect. INPATIENT MEDICATIONS: Reviewed. LABORATORY DATA: Reviewed. TELEMETRY DATA: Reviewed, shows paced rhythm. IMAGING DATA: Reviewed, shows bilateral pleural effusion. ASSESSMENT: 1. Vznoz-uu-cgkaplv systolic congestive heart failure, ejection fraction less than 20%. 2. Status post automated implantable cardioverter-defibrillator. 3. History of coronary artery disease, status post myocardial infarction. 4. History of paroxysmal atrial fibrillation. PLAN: Hold anticoagulants for now pending possible thoracentesis by Pulmonary. Continue other cardiovascular medications. Continue IV furosemide as renal function tolerates. Thank you for this consult. We will continue to follow. MD SARAH Bravo/KAVIN /[id number]
[2019-09-22 06:06] LABS: INR 1.49
[2019-09-22 06:07] LABS: PARTIAL THROMBOPLASTIN TIME 33.2 seconds (23.8-35.5)
[2019-09-22 06:15] LABS: ALBUMIN 3.5 g/dL (3.5-5.0); ALBUMIN/GLOBULIN RATIO 1.5 (0.8-2.0); ANION GAP 14.8 mmol/L (8-16); CALCIUM 8.5 mg/dL (8.4-10.2); CREATININE, SERUM 2.8 mg/dL (0.72-1.25); MAGNESIUM 2.6 MG/DL (1.3-2.1); POTASSIUM 3.8 mmol/L (3.5-5.1)
--- NOTE | 2019-09-22 06:59 | NUR ---
patient is resting comfortably in the bed. bed is in the lowest position and call light is within reach.
--- NOTE | 2019-09-22 07:00 | NUR ---
RECEIVED REPORT FROM PIPE CAULKER NURSE, PATIENT'S HOB ELEVATED, A&O X3, PATIENT ON 02 3.5L NC, CALL LIGHT WITHIN REACH, BED LOW AND LOCKED, SIDE RAILS UPX2.
--- NOTE | 2019-09-22 07:26 | NUR ---
IM- progress note O/N see below ROS: no f/c/s/N/V/D/SINHA/cp/sob/skin rash/back pain/vision changes/focal limb weakness v/s revd PE tired appearing anicteric ns1s2 Reduced BS soft nt nd no e/t skin dry n.affect a&ox3; [place] labs/meds revd A/P: Large right effusion Pulmonary edema- lasix RINA in CKD3- monitor PAF- inr low; but hold warfarin for thoracentesis. Combined systolic and diastolic CHF Hypertensive heart ds BPH- flomax CAD- cont home meds; Prop: hold warfarin for thoracentesis; pepcid dispo:iv lasix; IR for drainage; 3-29 check BMP; skin changes?; check LFTs and ammonia; 3-30 hyperbilirubinemia in Liver cirrhosis; check MRI or U/S of liver. GI to luciano. Gabe Womack MD, PHD.
[2019-09-22] MEDS: FUROSEMIDE INJ 10 MG/ML 4 ML VIAL IV SCH ×2 (08:41→16:39)
[2019-09-22] MEDS: CARVEDILOL 12.5 MG TAB PO SCH ×2 (08:41→16:40)
[2019-09-22] MEDS: FERROUS SULFATE 325 MG TAB PO SCH (08:41)
[2019-09-22] MEDS: SIMVASTATIN 40 MG TAB PO SCH (08:41)
[2019-09-22] MEDS: ALLOPURINOL 100 MG TAB PO SCH (08:41)
[2019-09-22] MEDS: FINASTERIDE 5 MG TAB PO SCH (08:41)
[2019-09-22] MEDS: LORATADINE 10 MG TAB PO SCH (08:41)
--- NOTE | 2019-09-22 10:21 | NUR ---
NOTIFIED PATIENT THAT PROCEDURE APPROXIMATE TIME IS AFTERNOON ACCORDING TO RADIOLOGY.
--- NOTE | 2019-09-22 11:35 | NUR ---
IR TEAM AT BEDSIDE AT THIS TIME, THORACENTESIS TAKING PLACE.
--- NOTE | 2019-09-22 12:23 | NUR ---
Pulmonary Medicine DATE 09/22/2019 SUBJECTIVE: EATING WELL bm THORACENTEESSIS TODAY 1200 cc out REVIEW OF SYSTEMS: no headaches, no chest pain OBJECTIVE: VITAL SIGNS: Vital signs noted and reviewed per the chart record. GENERAL: no acute distress. Alert and calm. HEENT: Normocephalic, atraumatic. NECK: Supple. Throat midline. LUNGS: Bilateral air entry, decreased breath sounds at bases. CARDIOVASCULAR: S1, S2. No murmurs, rubs, or gallops. ABDOMEN: Soft, nontender. EXTREMITIES: No clubbing. No cyanosis. no/trace edema. INTEGUMENT: No rash. No purpura. LABORATORY DATA:k 3.8, cr 2.8. wbc 8.59, hct 40, IMPRESSION: 1. Shortness of breath, multifactorial. 2. Dsjhg-ki-wjgafou systolic heart failure, ejection fraction of 15% to 20%. 3. Chronic kidney disease, advanced 4. Warfarin coagulopathy, warfarin on hold. 5. Possible chronic obstructive pulmonary disease by history. 6. History of mediastinal lymphadenopathy. 7. Bilateral pleural plaques, asbestos related suggested. 8. Benign prostatic hyperplasia, status post TURP. 9. Hypertension. 10. Hyperuricemia. 11. Radiographic bronchiectasis. Warfarin was held. OK to resume today after thoracentesis Thoracentesis today. Follow pleural fluid analysis Continue diuretics as kidneys tolerate. Thank you very much, Dr. Gabe Womack for this consult. Please call for questions.
--- NOTE | 2019-09-22 12:28 | Diagnostic Imaging Report ---
PROCEDURE: Ultrasound-guided thoracentesis Procedural Personnel Attending physician(s): Jojo Medrano MD Fellow physician(s): None Resident physician(s): None Advanced practice provider(s): None Pre-procedure diagnosis: Pleural effusion Post-procedure diagnosis: Same Indication: Pleural effusion with compromised respiration Additional clinical history: None Complications: No immediate complications. IMPRESSION: Ultrasound-guided thoracentesis with drainage of 1200 mL of gris serous fluid. Plan: Resume care by clinical team. PROCEDURE SUMMARY: - Limited thoracic ultrasound - Ultrasound-guided thoracentesis - Additional procedure(s): None PROCEDURE DETAILS: Pre-procedure Consent: Informed consent for the procedure including risks, benefits and alternatives was obtained and time-out was performed prior to the procedure. Preparation: The site was prepared and draped using maximal sterile barrier technique including cutaneous antisepsis. Anesthesia/sedation Level of anesthesia/sedation: No sedation Anesthesia/sedation administered by: Not applicable Total intra-service sedation time (minutes): N.A Limited thoracic ultrasound Limited thoracic ultrasound was performed using a curved transducer. A safe window for thoracentesis was identified. Left hemithorax findings: Not investigated Right hemithorax findings: Large pleural effusion Thoracentesis Local anesthesia was administered. The pleural space was accessed under real-time ultrasound guidance and fluid return confirmed position. The fluid was drained. The catheter was removed, and a sterile bandage was applied. Catheter placed: 5F Nica Post-drainage hemithorax findings: Small pleural effusion Additional Details Additional description of procedure: None Equipment details: None Specimens removed: Pleural fluid Estimated blood loss (mL): Less than 10 Standardized report: [email or web address] Attestation Signer name: Jojo Medrano MD I attest that I was present for the entire procedure. I reviewed the stored images and agree with the report as written. Signed by: Jojo Medrano MD on 09/22/2019 12:25 PM
--- NOTE | 2019-09-22 12:51 | Diagnostic Imaging Report ---
EXAMINATION: CHEST SINGLE (PORTABLE) INDICATION: Postprocedural COMPARISON: Chest radiograph 09/17/2019, chest CT 09/20/2019 FINDINGS: LINES/TUBES:Left chest pacer. EKG leads overlie the chest. LUNGS:The lungs are moderately inflated. Right basilar airspace opacity. PLEURA:Small right pleural effusion. No pneumothorax status post right thoracentesis. MEDIASTINUM:Unchanged cardiomegaly. BONES/SOFT TISSUES:No acute osseous injury. ABDOMEN:No free air under the diaphragm. IMPRESSION: No pneumothorax status post right thoracentesis. Small residual right pleural effusion. Right basilar opacity, most likely subsegmental atelectasis. Unchanged cardiomegaly. Signed by: Jojo Medrano MD on 09/22/2019 12:48 PM
--- NOTE | 2019-09-22 13:01 | NUR ---
PLEURAL FLUID SENT TO LAB
--- NOTE | 2019-09-22 13:02 | NUR ---
NOTIFIED DR HOLLIS THAT DUE TO PT BEING ON CONTACT ISOLATION FOR BED BUGS MRI COULD NOT DUE MRI ORDERED. PER DR. HOLLIS, PERMETRIN 5% SHAMPOO NOW AND REPEAT IN 2WEEKS, SPOKE TO PHARMACY, PER PHARMACY, NO PERMETRIN 5% SHAMPOO ON THE MARKET AVAILABLE, PERMETRIN CREAM 5% AND LOTION 1% AVAILABLE ONLY NOTIFIED DR HOLLIS, WAITING ON DR. HOLLIS RESPONSE AT THIS TIME.
--- NOTE | 2019-09-22 14:18 | NUR ---
Nutrition Screen Note RD Recommendation for Physician: -Continue current diet per MD. Plan of Care: RD following, monitoring for tolerance and adequacy. Educational handout provided. Nutrition reason for involvement: Diagnosis-CHF Primary Diagnose(s): CHF PMH: CHF, CAD Ht: 74 in Wt: 196 lb BMI: 25.2 kg/m2 IBW:[address] Assessment: (09/21) 84 YOM admitted for CHF with PMH listed above. The pt reported his appetite has been good and stated he has some weight fluctuations d/t his fluid. Pt denied N/V/C/D/chewing or swallowing issues as well as any food allergies. Pt did not need education at this time, left low Na nutrition educational handout in chart. The pt had no other questions or concerns. Pt has been consuming 100% of his meals per FS. Pt is on lasix. Chart reviewed. Labs and meds reviewed. Will continue to monitor. Current Diet: cardiac Malnutrition Evaluation (09/21) The patient does not meet criteria for a specified degree of malnutrition at this time. Will re-evaluate at follow-up as appropriate. Diet Education Needs Assessment: Diet education indicated, pt did not need at this time per pt. Diet Adequacy: Meeting calorie needs, Meeting protein needs Nutrition Care Level: low Signed: Brigette Calvillo, RD, LD
[2019-09-22] MEDS ORDERED: PERMETHRIN 5% CREAM 60 GM TUBE TOP ONE ×2 (14:30→14:45)
--- NOTE | 2019-09-22 14:45 | Progress Note ---
DATE: 09/22/2019 Cardiology Progress Note SUBJECTIVE: The patient denies chest pain or shortness of breath. He had thoracentesis today. OBJECTIVE: VITAL SIGNS: Temperature 95.4 degrees, pulse 80, respiratory rate 20, blood pressure 94/67, and oxygen saturation 97% on 3.5 L nasal cannula. GENERAL: Elderly man, in no acute distress. Awake and alert. LUNGS: Clear to auscultation bilaterally. No wheezes or crackles. Decreased breath sounds at bilateral bases. CARDIOVASCULAR: Normal rate. Regular rhythm. No murmur. Normal S1 and S2. ABDOMEN: Soft and nontender. EXTREMITIES: 1+ edema. CARDIAC MEDICATIONS: Simvastatin 40 mg p.o. daily, carvedilol 12.5 mg p.o. b.i.d., and furosemide 40 mg IV b.i.d. LABORATORY DATA: Sodium 136, potassium 3.8, chloride 98, CO2 27, BUN 57, and creatinine 2.8. TELEMETRY: V-paced. IMPRESSION: 1. Skoyr-kn-isfbqrl systolic heart failure with ejection fraction less than 20%. 2. Status post AICD. 3. Coronary artery disease, status post myocardial infarction. 4. Paroxysmal atrial fibrillation. RECOMMENDATIONS: The patient is status post thoracentesis. Resume warfarin if agreeable. Continue current cardiac medications otherwise. Continue IV diuretics. Creatinine is relatively stable. We will monitor closely. Thank you for this consult. We will continue to follow. Sharri Buchanan MD ABS/MODL /[id number]
[2019-09-22 15:16] LABS: BODY FLUID APPEARANCE SL.CLOUDY; BODY FLUID COLOR RED; BODY FLUID TYPE PLEURAL
[2019-09-22 15:48] LABS: RBC,BODY FLUID 1456 cells/uL; WBC,BODY FLUID 11 cells/uL
--- NOTE | 2019-09-22 15:59 | NUR ---
User: Ro Colin Date: 09/22/19 Type: Medical Provider Notes GASTROENTEROLOGY CONSULTATION Consulting Physician- Dr. Vu Bernal Reason for consult- hyperbilirubinemia cc: sob HPI: Patient is 84yoM presented with recent fall and supertherapeutic inr, now with sob. Patient was found to have a pleural effusion. GI has been consulted fo r elevated LFTs. Patient denies any history of cirrhosis or liver problems. He denies any abdominal pain, nausea/vomiting, melena, hematochezia or hematemesis. Patient was found to have AST of 49, ALT of 40, and Bili of 3.[address] show history of liver cirrhosis. Patient is not a good historian and majority of hx was taken from charts. Patient states he is due for outpatient follow up for colonoscopy. He denies of currently drinking. PMH: CAP, GREG, Combination of diastolic and systolic CHF LVEF 20%, RINA, LAD chest, PAF, HLD, Hypertensive heart ds, BPH, Gout, CKD3 due to HTN, CAD/FL, Hx cigs. Supertherapeutic inr, hypokalemia PSx: reports of amputations , AICD Allergies; see notes FH/SH: ; hx cigs; FH of Hypertension and diabetes. FH of CAD meds; see MAR ROS: currently denies any abd pain, n/v, melena, hematochezia denies any weight loss/gain denies any palpitations, denies any headaches, LOC denies any skin rashes, V/S reviewed PHYSICAL EXAM NAD A&O x3 anicteric Neck Supple normal BS soft nt nd skin dry flat affect a&ox3; no motor deficit ASSESMENT AND PLAN 1) Elevated LFTs, hyperbilirubinemia 2) Hx of Cirrhosis - etiology - congestive hepatopathy? 3) Large R effusion - hepatic hydrothorax? 4) Systolic/diastolic CHF Plan: - Abd US to r/o cirrhosis of the liver and check for ascites - Monitor LFTs - acute hepatic panels DISCUSSED above w/Dr. David Gutierrez Thank you for the consult
[2019-09-22 16:30] LABS: LYMPHOCYTES,BODY FLUID 77 %; MONO/MACROPHG,BODY FLUID 9 %; NEUTROPHILS,BODY FLUID 10 %; OTHER CELLS,BODY FLUID 4 %
[2019-09-22] MEDS: WARFARIN SOD 3 MG TAB PO SCH (16:41)
[2019-09-22 16:57] LABS: HEMATOCRIT 42.6 % (38.2-49.6); HEMOGLOBIN 14.5 g/dL (14.0-18.0)
--- NOTE | 2019-09-22 19:15 | NUR ---
patient received awake, alert, lying quietly in bed. no c/o pain noted. respirations even and unlabored. 02/2l/nc in use. pm assessment complete. patient instructed to call for assistance when needed.
--- NOTE | 2019-09-22 19:17 | NUR ---
GAVE REPORT TO ONCOMING NURSE
--- NOTE | 2019-09-22 20:04 | Diagnostic Imaging Report ---
EXAM: Complete Abdominal Ultrasound INDICATION: liver cirrhosis, ascites? hyperbilirubinemia COMPARISON: Abdominal ultrasound 12/23/2018. TECHNIQUE: Transverse and longitudinal images of the upper abdomen were obtained. FINDINGS: Liver: Size: 18.4 cm in the right midclavicular line, Enlarged Appearance: Coarse echogenicity, lobular contour Mass: No focal masses Spleen: Size: 10.8 cm in length, normal Echogenicity: Normal Mass: No focal masses Gallbladder: Stones/Sludge: None Wall: 0.2 cm Appearance: No pericholecystic fluid or hydrops. Sonographic Knapp's Sign: Negative Bile Ducts: Intrahepatic Ducts: No dilatation Extrahepatic Ducts: Common bile duct measures 0.2 cm, no dilatation Pancreas: Visualized portions of the pancreatic head, neck and proximal body are normal. Right Kidney: Size: 9.3 cm Echogenicity: Normal Parenchymal thickness: Normal Collecting System: No hydronephrosis Stone: None Cyst/Mass: None Left Kidney: Size: 9.1 cm Echogenicity: Normal Parenchymal thickness: Normal Collecting System: No hydronephrosis Stone: None Cyst/Mass: None Vessels: Aorta: Visualized portions are normal Inferior Vena Cava: Visualized portions are normal Main Portal Vein: 1.1 cm, normal size with hepatopetal flow. Free Fluid: No ascites or pleural effusion IMPRESSION: Coarse nodular liver, consistent with cirrhosis. No focal mass. Signed by: Blas Heller MD on 09/22/2019 8:01 PM
[2019-09-22] MEDS: ZOLPIDEM TARTRATE 10 MG TAB PO SCH (20:41)
--- NOTE | 2019-09-22 21:57 | NUR ---
patient refuses to wear telemetry. monitor replaced 6 times after patient removes it. patient states, " I don't need it and i'm not wearing it. " call placed to re: telemetry. telemetry not d/c'd at this time. instructed to document at this time.
[2019-09-23] VITALS (8 sets, daily range): BP systolic 89–113; BP diastolic 54–69
--- NOTE | 2019-09-23 00:28 | NUR ---
telemetry taken off by patient. bed alarm turned off by patient and oob and in the shower. patient instructed on need for telemetry. patient informed that was called re:telemetry and wanted him to wear it. Patient states, " can stick it in his ear. "
--- NOTE | 2019-09-23 05:18 | NUR ---
IM- progress note O/N see below ROS: no f/c/s/N/V/D/SINHA/cp/sob/skin rash/back pain/vision changes/focal limb weakness v/s revd PE tired appearing anicteric ns1s2 Reduced BS soft nt nd no e/t skin dry n.affect a&ox3; [place] labs/meds revd A/P: Large right effusion Pulmonary edema- lasix RINA in CKD3- monitor PAF- inr low; but hold warfarin for thoracentesis. Combined systolic and diastolic CHF Hypertensive heart ds BPH- flomax CAD- cont home meds; Prop: hold warfarin for thoracentesis; pepcid dispo:iv lasix; IR for drainage; 3-29 check BMP; skin changes?; check LFTs and ammonia; 3-30 hyperbilirubinemia in Liver cirrhosis; check MRI or U/S of liver. GI to eval. 3-31 U/S no liver mass Gabe Womack MD, PHD.
--- NOTE | 2019-09-23 07:00 | NUR ---
RECEIVED REPORT FROM SENIOR MEDIA PLANNER NURSE, PATIENT IS A&OX3, NO DISTRESS NOTED, SITTING AT SIDE OF BED, CALL LIGHT WITHIN REACH.
[2019-09-23 07:13] LABS: ALBUMIN 3.9 g/dL (3.5-5.0); BILIRUBIN,DIRECT 1.7 mg/dL (0.0-0.5)
[2019-09-23] MEDS: ALLOPURINOL 100 MG TAB PO SCH (09:36)
[2019-09-23] MEDS: FINASTERIDE 5 MG TAB PO SCH (09:36)
[2019-09-23] MEDS: CARVEDILOL 12.5 MG TAB PO SCH (09:36)
[2019-09-23] MEDS: FERROUS SULFATE 325 MG TAB PO SCH (09:36)
[2019-09-23] MEDS: SIMVASTATIN 40 MG TAB PO SCH (09:36)
[2019-09-23] MEDS: LORATADINE 10 MG TAB PO SCH (09:36)
[2019-09-23] MEDS: FUROSEMIDE INJ 10 MG/ML 4 ML VIAL IV SCH ×2 (09:36→16:47)
--- NOTE | 2019-09-23 12:24 | NUR ---
Pulmonary Medicine DATE 09/23/2019 SUBJECTIVE: RA FiO2 feeling better eats some, not a lot BM REVIEW OF SYSTEMS: no headaches, no chest pain OBJECTIVE: VITAL SIGNS: Vital signs noted and reviewed per the chart record. GENERAL: no acute distress. Alert and calm. HEENT: Normocephalic, atraumatic. NECK: Supple. Throat midline. LUNGS: Bilateral air entry, decreased breath sounds at bases. CARDIOVASCULAR: S1, S2. No murmurs, rubs, or gallops. ABDOMEN: Soft, nontender. EXTREMITIES: No clubbing. No cyanosis. no/trace edema. INTEGUMENT: No rash. No purpura. LABORATORY DATA: k 2.8, hco3 27. wbc 8.6. IMPRESSION: 1. Shortness of breath, multifactorial. 2. Cnqbe-gn-lnprjzs systolic heart failure, ejection fraction of 15% to 20%. 3. Chronic kidney disease, advanced 4. Warfarin coagulopathy, warfarin on hold. 5. Possible chronic obstructive pulmonary disease by history. 6. History of mediastinal lymphadenopathy. 7. Bilateral pleural plaques, asbestos related suggested. 8. Benign prostatic hyperplasia, status post TURP. 9. Hypertension. 10. Hyperuricemia. 11. Radiographic bronchiectasis. Warfarin was held. CXR shows retained pleural opacity-- retained fluid? will review need for repeat thoracentesis. check US chest Follow pleural fluid analysis Continue diuretics as kidneys tolerate. Thank you very much, Dr. Gabe Womack for this consult. Please call for questions.
--- NOTE | 2019-09-23 12:36 | NUR ---
PATIENT APPEARS CONFUSED, FOOD IN RECLINER, DIAPER ON FLOOR, VITAL SIGNS ARE 96% O2 SATS ROOM AIR, 85HR, 80/59 LEFT ARM BP, 92/65 BP RIGHT ARM BP, CALLED DR. HOLLIS TO NOTIFY, NEW ORDERS FOR COREG 3.125MG Q12H HOLD IF SYSTOLIC IS LESS THAN 115, STAT AMMONIA LEVEL, UA WITH REFLUX CX. ORDERS PLACED.
--- NOTE | 2019-09-23 13:32 | Diagnostic Imaging Report ---
Bilateral chest ultrasound History: Pleural effusion Technique/findings: Limited bilateral chest ultrasound was performed to evaluate for pleural effusion. This demonstrated a moderate right and trace left pleural effusion. IMPRESSION: Moderate right pleural effusion. Trace left pleural effusion. Signed by: Jojo Medrano MD on 09/23/2019 1:28 PM
--- NOTE | 2019-09-23 16:10 | Progress Note ---
DATE: 09/23/2019 Cardiology Progress Note SUBJECTIVE: The patient denies chest pain or shortness of breath. He is able to state the year is 2019 and he is at [facility]. However, he is slightly confused. OBJECTIVE: VITAL SIGNS: Temperature 96.9 degrees, pulse 86, respiratory rate 24, blood pressure 89/56, oxygen saturation 98% on room air. GENERAL: Elderly man, no acute distress. Awake and alert. LUNGS: Clear to auscultation bilaterally. No wheezes or crackles. Decreased breath sounds at the bases. CARDIOVASCULAR: Normal rate, regular rhythm. No murmur. Normal S1, S2. ABDOMEN: Soft, nontender. EXTREMITIES: Trace edema. CARDIAC MEDICATIONS: 1. Simvastatin 40 mg p.o. daily. 2. Furosemide 40 mg IV b.i.d. 3. Warfarin 3 mg p.o. daily. 4. Carvedilol 3.125 mg p.o. b.i.d. LABORATORY DATA: AST 81, ALT 61. TELEMETRY: Personally reviewed and interpreted revealing ventricular paced rhythm. IMPRESSION: 1. Acute on chronic systolic heart failure, ejection fraction less than 20%. 2. Status post AICD. 3. Coronary artery disease, status post myocardial infarction. 4. Paroxysmal atrial fibrillation. RECOMMENDATIONS: The patient status post thoracentesis, warfarin has been resumed. Monitor INR closely. Follow creatinine. Continue current cardiac medications. Replete electrolytes. Thank you for this consult. We will continue to follow. Sharri Buchanan MD ABS/MODL /[id number]
[2019-09-23] MEDS: CARVEDILOL 3.125 MG TAB PO SCH (16:23)
--- NOTE | 2019-09-23 16:46 | NUR ---
TOOK URINE SAMPLE TO LAB FOR UA AND URINE CX.
[2019-09-23] MEDS: WARFARIN SOD 3 MG TAB PO SCH (16:47)
[2019-09-23 16:59] LABS: BILIRUBIN,URINE NEGATIVE (NEGATIVE); CLARITY,URINE SL CLOUDY (CLEAR); COLOR,URINE YELLOW (YELLOW); KETONES,URINE NEGATIVE (NEGATIVE); LEUKOCYTE ESTERASE ,URINE NEGATIVE (NEGATIVE); NITRITE,URINE NEGATIVE (NEGATIVE); PROTEIN,URINE DIPSTICK NEGATIVE (NEGATIVE); URINE UROBILINOGEN 1 mg/dL (0.2 - 1)
[2019-09-23] MEDS ORDERED: CARVEDILOL 12.5 MG TAB PO SCH (17:00)
[2019-09-23 17:09] LABS: BACTERIA,URINE MODERATE /HPF; EPITHELIAL CELLS,URINE FEW /LPF
--- NOTE | 2019-09-23 17:37 | NUR ---
RT FA IV 20G INFILTRATED, IV REMOVED. NEW IV START TO LEFT FA 20G. SALINE LOCKED.
--- NOTE | 2019-09-23 17:37 | NUR ---
SPOKE TO PATIENT'S OVER PHONE FOR PT UPDATE.
--- NOTE | 2019-09-23 17:56 | NUR ---
DR. KANG ROUNDING ON PATIENT, NOTIFIED DR. KANG THAT PATIENT SEEMS CONFUSED. NEW ORDER FOR LACTULOSE 20MG BID. ORDER PLACED ON [facility] [place].
--- NOTE | 2019-09-23 18:06 | NUR ---
DR. KANG SPOKE TO PATIENT'S , RAVEN MARTINES ON PATIENT'S CURRENT STATUS FROM GI STANDPOINT.
--- NOTE | 2019-09-23 18:50 | NUR ---
GAVE REPORT TO ONCMICAH NURSE, NO DISTRESS NOTED. Addendum: 09/23/19 at 1857 by Aaliyah Dennis RN CALL LIGHT WITHIN REACH, BED LOW AND LOCKED, SIDE RAIL UPX2.
[2019-09-23 18:52] LABS: INR 1.87; PROTHROMBIN TIME 22.9 seconds (11.9-14.5)
[2019-09-23 18:57] LABS: ANION GAP 21.8 mmol/L (8-16); CALCIUM 9.1 mg/dL (8.4-10.2); CREATININE, SERUM 3.93 mg/dL (0.72-1.25); POTASSIUM 4.8 mmol/L (3.5-5.1)
--- NOTE | 2019-09-23 19:04 | NUR ---
patient received awake, alert and pleasantly confused. no c/o pain noted. patient moved to room 298 for safety. pm assessment complete. call love placed within reach. patient instructed to call for assistance when needed.
[2019-09-23] MEDS: LACTULOSE SYRUP 20 GM/30 ML UDC PO SCH (20:35)
[2019-09-23] MEDS: ZOLPIDEM TARTRATE 10 MG TAB PO SCH (20:35)
[2019-09-23] MEDS: ALPRAZOLAM 0.5 MG TAB PO SCH (22:29)
--- NOTE | 2019-09-23 22:30 | NUR ---
patient remains confused. patient constantly pushing call love but unable to state his needs. patient unwilling to call when getting out of bed. call placed to re: patients confusion. 1:1 sitter ordered and pm sleep medication changed.
[2019-09-24 04:00] VITALS: BP 82/67
[2019-09-24 08:00] VITALS: BP 109/78
--- NOTE | 2019-09-24 08:55 | NUR ---
PT UP IN CHAIR. AAOX3. 1:1 SITTER AT BEDSIDE FOR PT SAFETY. PT REFUSING TO WEAR TELE. PACEMAKER NOTE TO LT CHEST WALL
[2019-09-24] MEDS: SIMVASTATIN 40 MG TAB PO SCH (09:00)
[2019-09-24] MEDS: LACTULOSE SYRUP 20 GM/30 ML UDC PO SCH ×2 (09:00→21:11)
[2019-09-24] MEDS: FINASTERIDE 5 MG TAB PO SCH (09:00)
[2019-09-24] MEDS: CARVEDILOL 3.125 MG TAB PO SCH ×2 (09:00→16:58)
[2019-09-24] MEDS: FERROUS SULFATE 325 MG TAB PO SCH (09:00)
[2019-09-24] MEDS: LORATADINE 10 MG TAB PO SCH (09:00)
[2019-09-24] MEDS: ALLOPURINOL 100 MG TAB PO SCH (09:00)
[2019-09-24] MEDS: FUROSEMIDE INJ 10 MG/ML 4 ML VIAL IV SCH (09:00)
[2019-09-24 12:00] VITALS: BP 101/82
--- NOTE | 2019-09-24 13:01 | NUR ---
Pulmonary Medicine DATE 09/24/2019 SUBJECTIVE: RA FiO2 feeling better eats some, not a lot BM REVIEW OF SYSTEMS: no headaches, no chest pain OBJECTIVE: VITAL SIGNS: Vital signs noted and reviewed per the chart record. GENERAL: no acute distress. Alert and calm. HEENT: Normocephalic, atraumatic. NECK: Supple. Throat midline. LUNGS: Bilateral air entry, decreased breath sounds at bases. CARDIOVASCULAR: S1, S2. No murmurs, rubs, or gallops. ABDOMEN: Soft, nontender. EXTREMITIES: No clubbing. No cyanosis. no/trace edema. INTEGUMENT: No rash. No purpura. LABORATORY DATA:k 4.8, cr 3.93, wbc 8.6, hct 43, plt 148 IMPRESSION: 1. Shortness of breath, multifactorial. 2. Bhnab-kx-svxfeca systolic heart failure, ejection fraction of 15% to 20%. 3. Chronic kidney disease, advanced 4. Warfarin coagulopathy, warfarin on hold. 5. Possible chronic obstructive pulmonary disease by history. 6. History of mediastinal lymphadenopathy. 7. Bilateral pleural plaques, asbestos related suggested. 8. Benign prostatic hyperplasia, status post TURP. 9. Hypertension. 10. Hyperuricemia. 11. Radiographic bronchiectasis. Warfarin resumed Due to active anticoagulation, we will check functionality prior to deciding on thoracentesis. May need to consider deferring thoracentesis-- get thoracentesis if the patient is very symptomatic. Continue diuretics as kidneys tolerate. Thank you very much, Dr. Gabe Womack for this consult. Please call for questions.
[2019-09-24 15:15] LABS: ALBUMIN 3.8 g/dL (3.5-5.0); ALBUMIN/GLOBULIN RATIO 1.5 (0.8-2.0); ANION GAP 17.4 mmol/L (8-16); CREATININE, SERUM 3.71 mg/dL (0.72-1.25); POTASSIUM 4.4 mmol/L (3.5-5.1)
--- NOTE | 2019-09-24 15:45 | NUR ---
DR DOAN TO SEE PT NO NEW ORDERS GIVEN
--- NOTE | 2019-09-24 15:53 | Progress Note ---
DATE: Medicine Progress Note I am covering for Dr. Gabe Womack. SUBJECTIVE: The patient apparently was admitted for multiple issues. The patient was admitted for CHF exacerbation. He was also admitted for pulmonary edema, status post thoracentesis. He was found to be jaundiced, had elevated total bilirubin levels. Cardiology, GI, and Pulmonary were all involved. The patient is currently doing well. Last night, he was confused after given some Ambien by the primary attending, Dr. Womack. He is currently doing well. He does have a sitter at bedside. He is alert, awake, and oriented x4 with no issues. I talked to the nursing staff, who reports that this patient is usually normal awake, alert and oriented and he is currently at his baseline. He is otherwise doing well and is eager to being discharged to home. I am waiting for further recommendations by the consultants. PHYSICAL EXAMINATION: VITAL SIGNS: Temperature is 95.9, pulse 85, respiratory rate is 20, blood pressure is 101/82, and pulse ox is 96% on room air. GENERAL: Not in acute distress. Alert and oriented x3. Cooperative on examination. HEENT: Head; normocephalic, atraumatic. Eyes; pupils are equal, round, and reactive to light bilaterally. Extraocular movements intact bilaterally. Throat; no evidence of erythema or exudates in the posterior pharynx. Has poor dentition. NECK: Supple. Good range of motion. PULMONARY: Clear to auscultation bilaterally. No wheezing, no rales, no rhonchi, no crackles appreciated. CARDIOVASCULAR: Positive S1 and S2. No murmurs, rubs, or gallops appreciated. ABDOMEN: Soft, nondistended, and nontender to palpation. Bowel sounds present. MUSCULOSKELETAL: Strength is 5/5 throughout. No evidence of any muscle deficits on examination. No weakness appreciated. NEUROLOGIC: Cranial nerves 2 through 12 grossly intact. No evidence of any neurological deficits on exam. SKIN: Intact. Warm to touch. Good cap refill. PSYCHIATRIC: Normal affect and mood. EXTREMITIES: No edema. Good range of motion throughout. LABORATORY FINDINGS: Show white count is 8.5, hemoglobin 13, hematocrit is 40, and platelets of 148. Coagulation; PT 24.9, INR 1.87. Chemistry; sodium 133, potassium 4.8, chloride 92, bicarb 24, anion gap of 21, BUN is 63, creatinine is 3.93, glucose is 104, and calcium 9.1. LFTs, total bilirubin as per report is 5.3 from yesterday, direct bilirubin was 1.7, AST 81, ALT 61, alkaline phosphatase 94, ammonia level was 61. Lactate dehydrogenase was 333. Troponins were all negative. Albumin 3.5 is pending. Urinalysis negative. Thoracentesis fluid noted. ANGEL, antimitochondrial antibody and anti-smooth muscle antibody are pending. Serologies, hepatitis panel was negative. MICROBIOLOGY: Body fluid cultures were no growth. Urine cultures show no growth to date. IMAGING STUDIES: He had a chest CT on admission shows some moderate cardiomegaly. A large simple right and small left pleural effusions and mild pulmonary interstitial edema. Thoracentesis ultrasound shows 1.2 L removed on 09/22/2019. Abdominal ultrasound, coarse nodular liver consistent with cirrhosis. No focal mass. Chest x-ray shows no pneumothorax, status post right thoracentesis. Chest ultrasound shows moderate right pleural effusion. Trace left pleural effusion. IMPRESSION: 1. Acute exacerbation of congestive heart failure with systolic dysfunction with EF of 15% to 20%. 2. Supratherapeutic INR-warfarin on hold. 3. History of chronic obstructive pulmonary disease. 4. Hypertension. 5. Elevated LFTs with elevated total bilirubin. 6. Acute kidney injury on chronic kidney disease, stage 4. PLAN: At this time, GI was consulted for underlying elevated LFTs and total bilirubin. Ultrasound consistent with cirrhotic liver. Awaiting for several serologies that are pending by GI. The patient underwent recent thoracentesis. He is breathing well. He is on room air. Seems like there is no further workup needed by Pulmonary. As per Cardiology, continue with cardioprotective medications. Seems like from a cardiac standpoint, no further workup, but his creatinine is continuing to rise, which is worrisome. I will go ahead and get a renal ultrasound to evaluate his kidney sizes and try to see the cause of his renal dysfunction. Get a urine protein to creatinine ratio, microalbumin to creatinine ratio. This could be secondary to worsening heart failure, likely cardiorenal syndrome and possibly even a renal syndrome due to liver cirrhosis. Otherwise, we will continue same plan of care and minimize any nephrotoxic agents. MD JENSEN Keith/KAVIN /[id number]
--- NOTE | 2019-09-24 15:53 | Diagnostic Imaging Report ---
EXAM: CHEST SINGLE (PORTABLE) DATE: 09/24/2019 3:18 PM INDICATION: Shortness of breath COMPARISON: 09/22/2019 FINDINGS: Left-sided AICD identified in stable position. The trachea is midline. There is a stable small right pleural effusion and right basilar opacity suggestive of atelectasis. An underlying airspace process cannot be entirely excluded. There is no evidence for new large focal consolidation or pneumothorax. The cardiac silhouette remains enlarged. Mediastinal contours are unremarkable. No acute osseous abnormality is identified. IMPRESSION: Stable small right pleural effusion and right basilar opacities suggestive of atelectasis. Stable cardiomegaly. Signed by: Dr. Marcus Camacho MD on 09/24/2019 3:50 PM
[2019-09-24 16:00] VITALS: BP 111/80
--- NOTE | 2019-09-24 16:33 | Diagnostic Imaging Report ---
EXAM: US RENAL RETROPERITONEAL COMP DATE: 09/24/2019 12:00 AM INDICATION: Acute kidney injury COMPARISON: Abdominal ultrasound from 09/22/2019 FINDINGS: The right kidney is normal in size measuring 10.1 x 4.8 x 4.3 cm with cortical thickness of 1.8 cm. Cortical echogenicity is within normal limits. There is no evidence for solid renal mass, hydronephrosis, or shadowing calculi. The left kidney is normal in size measuring 8.3 x 4.8 x 3.8 cm with cortical thickness of 1.6 cm. Cortical echogenicity is within normal limits. There is no evidence for solid mass, hydronephrosis, or shadowing calculi. The urinary bladder is unremarkable. Bilateral ureteral jets are noted. Prevoid volume is 292 cc. Incidentally noted is a trace amount of perihepatic ascites. IMPRESSION: Unremarkable sonographic appearance of the kidneys. Trace perihepatic ascites. Signed by: Dr. Marcus Camacho MD on 09/24/2019 4:29 PM
[2019-09-24] MEDS: WARFARIN SOD 3 MG TAB PO SCH (17:00)
--- NOTE | 2019-09-24 17:04 | Progress Note ---
DATE: 09/24/2019 Cardiology Progress note SUBJECTIVE: The patient denies chest pain. He is complaining shortness of breath. He is insistent on going home today. OBJECTIVE: VITAL SIGNS: Temperature 95.9 degrees, pulse 87, respiratory rate 20, blood pressure 111/80, and oxygen 95% on 2 L nasal cannula. GENERAL: Awake, alert, in no acute distress. LUNGS: Clear to auscultation bilaterally. No wheezes or crackles. Decreased breath sounds at the bases. CARDIOVASCULAR: Normal rate. Regular rhythm. No murmur. Normal S1, S2. ABDOMEN: Soft, nontender. EXTREMITIES: No edema. CARDIAC MEDICATIONS: 1. Simvastatin 40 mg p.o. at bedtime. 2. Finasteride 5 mg p.o. daily. 3. Warfarin 3 mg p.o. daily. 4. Carvedilol 3.125 mg p.o. b.i.d. LABORATORY DATA: Sodium 133, potassium 4.4, chloride 94, CO2 of 26, BUN 66, and creatinine 3.71. AST 238, ALT 207. IMPRESSION: 1. Acute on chronic systolic heart failure, ejection fraction less than 20%. 2. Status post automatic implantable cardioverter-defibrillator. 3. Coronary artery disease, status post myocardial infarction. 4. Paroxysmal atrial fibrillation. 5. Elevated liver function tests. 6. Acute kidney injury. RECOMMENDATIONS: Diuretics were stopped due to RNIA. Repeat BMP. Obtain chest x-ray given complaint of shortness of breath. Further evaluation of LFTs per primary. Monitor INR closely. Continue warfarin for CVA prophylaxis. Continue current cardiac medications otherwise. Further recommendations pending test results. Thank you for this consult. We will continue to follow. Sharri Buchanan MD ABS/MODL /[id number]
--- NOTE | 2019-09-24 18:48 | NUR ---
report given to the oncoming shift
--- NOTE | 2019-09-24 19:40 | NUR ---
Received bedside report from day nurse. Patient awake and sitting in recliner, no s/s of distress at this time. Bed locked and in low position, call light placed within reach. All safety measures in place. Sitter at bedside. Will continue to monitor.
[2019-09-24 20:00] VITALS: BP 94/54
[2019-09-24 20:28] VITALS: BP_SYST 111; BP_SYST 94; BP_DIAS 54; BP_DIAS 80
[2019-09-24] MEDS: ALPRAZOLAM 0.5 MG TAB PO SCH (22:48)
[2019-09-25] VITALS (7 sets, daily range): BP systolic 94–101; BP diastolic 64–79
--- NOTE | 2019-09-25 04:06 | NUR ---
Patient c/o difficulty breathing unrelieved by sitting up and pursed lip breathing. O2 stats 96% on RA. Paged Dr. De Luna and received orders to hold warfarin, order PT and INR labs, and schedule patient for thoracentesis.
[2019-09-25 05:57] LABS: BASOPHILS # (AUTO) 0.1 (0.0-0.1); BASOPHILS % 0.6 % (0.0-1.0); HEMATOCRIT 39.4 % (38.2-49.6); LYMPHOCYTES # (AUTO) 1.8 (1.0-3.2); MEAN CORPUSCULAR HEMOGLOBIN 32.2 pg (28-32); MEAN CORPUSCULAR VOLUME 97.5 fL (81-99); MONOCYTES % 11.4 % (4.4-11.3); NEUTROPHILS # (AUTO) 5.6 (2.1-6.9); NEUTROPHILS % 65.7 % (38.7-80.0); PLATELET COUNT 123 x10e3/uL (140-360); RED BLOOD COUNT 4.04 x10e6/uL (4.3-5.7); RED CELL DISTRIBUTION WIDTH 16.7 % (11.7-14.4)
[2019-09-25 06:06] LABS: INR 2.13; PROTHROMBIN TIME 25.4 seconds (11.9-14.5)
[2019-09-25 06:27] LABS: ALBUMIN 3.6 g/dL (3.5-5.0); ALBUMIN/GLOBULIN RATIO 1.5 (0.8-2.0); ANION GAP 17.2 mmol/L (8-16); CALCIUM 8.7 mg/dL (8.4-10.2); CREATININE, SERUM 3.47 mg/dL (0.72-1.25); POTASSIUM 4.2 mmol/L (3.5-5.1)
--- NOTE | 2019-09-25 07:14 | NUR ---
Bedside report given to day nurse. Patient resting in bed with both eyes closed, no s/s of distress at this time. All safety measures in place. Sitter at bedside.
[2019-09-25] MEDS: LACTULOSE SYRUP 20 GM/30 ML UDC PO SCH ×2 (09:54→20:43)
[2019-09-25] MEDS: FINASTERIDE 5 MG TAB PO SCH (09:54)
[2019-09-25] MEDS: FERROUS SULFATE 325 MG TAB PO SCH (09:54)
[2019-09-25] MEDS: LORATADINE 10 MG TAB PO SCH (09:54)
[2019-09-25] MEDS: ALLOPURINOL 100 MG TAB PO SCH (09:54)
[2019-09-25] MEDS: SIMVASTATIN 40 MG TAB PO SCH (09:54)
[2019-09-25] MEDS: CARVEDILOL 3.125 MG TAB PO SCH ×2 (09:55→16:32)
--- NOTE | 2019-09-25 14:00 | NUR ---
Pulmonary Medicine DATE 09/25/2019 SUBJECTIVE: US renal read as normal kidneys appearance, trace ascites patient did have SOB spells last night and this AM evident that the patient requires thoracentesis active anticoagulation inr 2.13 REVIEW OF SYSTEMS: no headaches, no chest pain OBJECTIVE: VITAL SIGNS: Vital signs noted and reviewed per the chart record. GENERAL: no acute distress. Alert and calm. HEENT: Normocephalic, atraumatic. NECK: Supple. Throat midline. LUNGS: Bilateral air entry, decreased breath sounds at bases. CARDIOVASCULAR: S1, S2. No murmurs, rubs, or gallops. ABDOMEN: Soft, nontender. EXTREMITIES: No clubbing. No cyanosis. no/trace edema. INTEGUMENT: No rash. No purpura. LABORATORY DATA: inr 2.13, wbc 9.5, bun 72, cr 3.47, hco3 24 IMPRESSION: 1. Shortness of breath, multifactorial. 2. Dfiun-pa-suenfgp systolic heart failure, ejection fraction of 15% to 20%. 3. Chronic kidney disease, advanced 4. Warfarin coagulopathy, warfarin on hold. 5. Possible chronic obstructive pulmonary disease by history. 6. History of mediastinal lymphadenopathy. 7. Bilateral pleural plaques, asbestos related suggested. 8. Benign prostatic hyperplasia, status post TURP. 9. Hypertension. 10. Hyperuricemia. 11. Radiographic bronchiectasis. Warfarin hold get thoracentesis. i discussed with IR to update them Continue diuretics as kidneys tolerate. follow renal dysfunction Thank you very much, Dr. Gabe Womack for this consult. Please call for questions.
[2019-09-25] MEDS ORDERED: PHYTONADIONE 10 MG/ML AMP PO ONE (14:15)
--- NOTE | 2019-09-25 14:32 | Progress Note ---
DATE: 09/25/2019 Medicine Progress Note SUBJECTIVE: The patient states that he wants to go home. I did discuss with him about palliative care and he seems he is very knowledgeable about hospice. He has agreed to talk to the hospice services. He understands that he is 85 years old and he has many medical issues and he would like to just go home and go on hospice. I told him that I will try to get a hospice company and have a hospice palliative care nurse come talk with him to see if this is his final decision. PHYSICAL EXAMINATION: VITAL SIGNS: Temperature 97, pulse 82, respiratory rate is 18, blood pressure 101/74, and pulse ox 98% on room air. GENERAL: Not in acute distress. Alert and oriented x3. Cooperative on examination. HEENT: Head; normocephalic, atraumatic. Eyes; pupils are equal, round, and reactive to light bilaterally. Extraocular movements intact bilaterally. Throat; no evidence of erythema or exudates in the posterior pharynx. Has poor dentition. NECK: Supple. Good range of motion. PULMONARY: Clear to auscultation bilaterally. No wheezing, no rales, no rhonchi, no crackles appreciated. CARDIOVASCULAR: Positive S1 and S2. No murmurs, rubs, or gallops appreciated. ABDOMEN: Soft, nondistended, and nontender to palpation. Bowel sounds present. MUSCULOSKELETAL: Strength is 5/5 throughout. No evidence of any muscle deficits on examination. No weakness appreciated. NEUROLOGIC: Cranial nerves 2 through 12 grossly intact. No evidence of any neurological deficits on exam. SKIN: Intact. Warm to touch. Good cap refill. PSYCHIATRIC: Normal affect and mood. EXTREMITIES: No edema. Good range of motion throughout. LABORATORY FINDINGS: Show white count 8.5, hemoglobin 13, hematocrit is 39, and platelets of 123. Chemistry; sodium 132, potassium 4.2, chloride 96, bicarb 24, anion gap of 17, BUN is 72, and creatinine is 3.47. Total bilirubin is 3.8, AST 227, and ALT 209. Alpha-1 antitrypsin and ceruloplasmin all pending. ANGEL negative. Antimitochondrial antibody and anti-smooth muscle antibodies pending. Hepatitis panel was negative. Body fluid culture no growth to date. Urine cultures were negative. IMAGING STUDIES: Chest x-ray from yesterday 09/24/2019, shows a stable right small pleural effusion and right basilar opacity, suggestive of atelectasis. IMPRESSION: 1. Acute exacerbation of congestive heart failure with systolic dysfunction and ejection fraction of 15% to 20%. 2. Supratherapeutic INR, warfarin on hold. 3. History of chronic obstructive pulmonary disease. 4. Hypertension. 5. Elevated LFTs with elevated total bilirubin. 6. Acute kidney injury on chronic kidney disease, stage 4. 7. Pulmonary edema. PLAN: At this time, warfarin has been held. The patient will need a thoracentesis, which is being arranged by Pulmonary. Continue with cardioprotective medications including diuretics. Get a.m. labs. The patient voiced to me that he understands that his age and he is 85 years old and he has had a good life he states and he has had many medical issues and he would rather just go home on hospice services. He was alert, awake, and oriented on examination. At this time, we will go ahead and put a palliative care consult and have the palliative care nurse to talk with the attending for palliative care and to see if this is the best option for him. At this time, we will await further recommendations and go from there. I will go ahead and put a case management order to see if this is the wishes that the patient wants in the family. The patient understands he is tired. He has been having many medical issues, has been in and out of the hospital for the last several months, and he prefers to go home with hospice services. MD JENSEN Keith/KAVIN /[id number]
--- NOTE | 2019-09-25 18:34 | Progress Note ---
DATE: 09/25/2019 REPORT: Cardiology Progress Note BODY AFTER REPORT: SUBJECTIVE: The patient denies chest pain. He is complaining however of shortness of breath. OBJECTIVE: VITAL SIGNS: Temperature 97.2 degrees, pulse 72, respiratory rate 14, blood pressure 101/74, and oxygen saturation 100% on room air. GENERAL: Elderly man, awake, mildly distressed. LUNGS: Decreased breath sounds at the bases, otherwise clear to auscultation. No wheezes or crackles. CARDIOVASCULAR: Normal rate, regular rhythm. No murmur. Normal S1, S2. ABDOMEN: Soft, nontender. EXTREMITIES: No edema. CARDIAC MEDICATIONS: Simvastatin 40 mg p.o. daily and 3.125 mg p.o. b.i.d. LABORATORY DATA: WBC 8.53, hemoglobin 13, hematocrit 39.4, platelets 123,000. Sodium 133, potassium 4.2, chloride 96, CO2 24, BUN 72, creatinine 3.47. Telemetry refused. IMPRESSION: 1. Acute on chronic systolic heart failure, EF less than 20%. 2. Status post AICD. 3. Coronary artery disease, status post myocardial infarction. 4. Paroxysmal atrial fibrillation. 5. Elevated LFTs. 6. Acute kidney injury. RECOMMENDATIONS: Diuretics were stopped due to RINA. Defer decision regarding thoracentesis to pulmonary. Recommend re-initiation of Lasix given rising BNP. We will discuss with primary. Warfarin has been stopped again for possible procedure, hold until no further procedures are planned. Continue current cardiac medications otherwise. Thank you for this consult. We will continue to follow. Sharri Buchanan MD ABS/MODL /[id number]
--- NOTE | 2019-09-25 19:15 | NUR ---
Received bedside report from day nurse. Patient awake and sitting on side of bed, no s/s of distress at this time. Bed locked and in low position, call light placed within reach. All safety measures in place. Will continue to monitor.
[2019-09-25] MEDS ORDERED: QUETIAPINE FUMARATE 25 MG TAB PO SCH (19:30)
--- NOTE | 2019-09-25 20:03 | NUR ---
Patient stating that he would like to leave AMA. Patient's called and asked for updates on plan of care. Informed about palliative care consult and plan for thoracentesis tomorrow. stating that she would like to speak with Dr. Tran. Called Dr. Tran and informed him of 's request. Dr. Tran said that he has already spoken with and that she knows about everything. Administered one time dose of Seroquel to patient as ordered. Will continue to monitor.
[2019-09-25] MEDS: ALPRAZOLAM 0.5 MG TAB PO SCH (21:00)
[2019-09-26] VITALS (8 sets, daily range): BP systolic 99–116; BP diastolic 67–84
[2019-09-26 05:17] LABS: ALPHA-1-ANTITRYPSIN 159 mg/dL (101-187)
--- NOTE | 2019-09-26 07:00 | NUR ---
Bedside report given to day nurse. Patient awake and sitting on side of bed, no s/s of distress at this time. All safety measures in place.
[2019-09-26 07:15] LABS: INR 1.83; PROTHROMBIN TIME 22.5 seconds (11.9-14.5)
[2019-09-26 07:23] LABS: ANION GAP 14.8 mmol/L (8-16); CALCIUM 8.9 mg/dL (8.4-10.2); CREATININE, SERUM 2.79 mg/dL (0.72-1.25); POTASSIUM 3.8 mmol/L (3.5-5.1)
[2019-09-26] MEDS: ALLOPURINOL 100 MG TAB PO SCH (09:00)
[2019-09-26] MEDS: FERROUS SULFATE 325 MG TAB PO SCH (09:00)
[2019-09-26] MEDS: CARVEDILOL 3.125 MG TAB PO SCH ×2 (09:00→17:00)
[2019-09-26] MEDS: LORATADINE 10 MG TAB PO SCH (09:00)
[2019-09-26] MEDS: FINASTERIDE 5 MG TAB PO SCH (09:00)
[2019-09-26] MEDS: SIMVASTATIN 40 MG TAB PO SCH (09:00)
[2019-09-26] MEDS: LACTULOSE SYRUP 20 GM/30 ML UDC PO SCH (09:00)
--- NOTE | 2019-09-26 11:00 | NUR ---
Palliative care EMERGENCY PHYSICIAN (Kelly) spoke with the pt and the pt's son about hospice care. Kelly called Dr. Tran and got telephone order for pt to be discharged home on hospice, see pt's chart for order.
--- NOTE | 2019-09-26 12:01 | Diagnostic Imaging Report ---
PROCEDURE: Ultrasound-guided thoracentesis Procedural Personnel Attending physician(s): Jojo Medrano MD Fellow physician(s): None Resident physician(s): None Advanced practice provider(s): None Pre-procedure diagnosis: Pleural effusion Post-procedure diagnosis: Same Indication: Pleural effusion with compromised respiration Additional clinical history: None Complications: No immediate complications. IMPRESSION: Ultrasound-guided thoracentesis with drainage of 1650 mL of gris serous fluid. Plan: Resume care by clinical team. PROCEDURE SUMMARY: - Limited thoracic ultrasound - Ultrasound-guided thoracentesis - Additional procedure(s): None PROCEDURE DETAILS: Pre-procedure Consent: Informed consent for the procedure including risks, benefits and alternatives was obtained and time-out was performed prior to the procedure. Preparation: The site was prepared and draped using maximal sterile barrier technique including cutaneous antisepsis. Anesthesia/sedation Level of anesthesia/sedation: No sedation Anesthesia/sedation administered by: Not applicable Total intra-service sedation time (minutes): N.A Limited thoracic ultrasound Limited thoracic ultrasound was performed using a curved transducer. A safe window for thoracentesis was identified. Left hemithorax findings: Not investigated Right hemithorax findings: Moderate pleural effusion. Thoracentesis Local anesthesia was administered. The pleural space was accessed under real-time ultrasound guidance and fluid return confirmed position. The fluid was drained. The catheter was removed, and a sterile bandage was applied. Catheter placed: 5F Sanchez Post-drainage hemithorax findings: No visible pleural effusion Additional Details Additional description of procedure: None Equipment details: None Specimens removed: Pleural fluid Estimated blood loss (mL): Less than 10 Standardized report: [id number] Attestation Signer name: Jojo Medrano MD I attest that I was present for the entire procedure. I reviewed the stored images and agree with the report as written. Signed by: Jojo Medrano MD on 09/26/2019 11:58 AM
--- NOTE | 2019-09-26 12:15 | Diagnostic Imaging Report ---
EXAMINATION: CHEST SINGLE (PORTABLE) INDICATION: Postprocedural COMPARISON: Chest radiograph 09/24/2019, thoracentesis of earlier the same day FINDINGS: LINES/TUBES:Left chest AICD LUNGS:The lungs are moderately inflated. There is perihilar fullness and indistinctness of the pulmonary vasculature. There is left basilar opacity silhouetting the left evi diaphragm. PLEURA:Interval resolution of right pleural effusion status post thoracentesis. No pneumothorax. MEDIASTINUM:Cardiomediastinal silhouette is stably enlarged. Atherosclerotic calcifications of the thoracic aorta. BONES/SOFT TISSUES:No acute osseous injury. ABDOMEN:No free air under the diaphragm. IMPRESSION: No pneumothorax status post right thoracentesis. Interval resolution of right pleural effusion. Unchanged cardiomegaly and interstitial pulmonary edema. Signed by: Jojo Medrano MD on 09/26/2019 12:12 PM
--- NOTE | 2019-09-26 13:46 | NUR ---
Pulmonary Medicine DATE 09/26/2019 SUBJECTIVE: thoracentesis done 1650 cc out, right side patient with low energy d/w son at bedside REVIEW OF SYSTEMS: no headaches, no chest pain OBJECTIVE: VITAL SIGNS: Vital signs noted and reviewed per the chart record. GENERAL: no acute distress. Alert and calm. HEENT: Normocephalic, atraumatic. NECK: Supple. Throat midline. LUNGS: Bilateral air entry, decreased breath sounds at bases. CARDIOVASCULAR: S1, S2. No murmurs, rubs, or gallops. ABDOMEN: Soft, nontender. EXTREMITIES: No clubbing. No cyanosis. no/trace edema. INTEGUMENT: No rash. No purpura. LABORATORY DATA: inr 1.83, hct 39, plt 123 , k 3.8, cr 2.7, hco3 25 IMPRESSION: 1. Shortness of breath, multifactorial. 2. [id number] systolic heart failure, ejection fraction of 15% to 20%. 3. Chronic kidney disease, advanced 4. Warfarin coagulopathy, warfarin on hold. 5. Possible chronic obstructive pulmonary disease by history. 6. History of mediastinal lymphadenopathy. 7. Bilateral pleural plaques, asbestos related suggested. 8. Benign prostatic hyperplasia, status post TURP. 9. Hypertension. 10. Hyperuricemia. 11. Radiographic bronchiectasis. warfarin ok thoracentesis, done. Continue diuretics as kidneys tolerate. follow renal dysfunction mobilize as feasible Thank you very much, Dr. Gabe Womack for this consult. Please call for questions.
--- NOTE | 2019-09-26 15:20 | NUR ---
WAS CONTACTED BY [facility] REP, STATING HE WAS COMPLETING A HOSPICE REFERRAL. I ASKED HOW SINCE WE DO NOT HAVE AN ORDER. FOUND OUT THAT THE [employer] B[employer] DIRECTOR FOR THE PALLIATIVE PROGRAM JOSE CALLED AND SPOKE WITH DR MARTINEZ AND THEN CALLED HER COMPANY TO COMPLETE THE REFERRAL WITH OUT THE ORDER OR CHOICE. INFORMED THE REP THAT WHAT THEY DID WAS SNEAKY AND QUESTIONABLE ETHICALLY! ALERTED CM TO SITUATION.
--- NOTE | 2019-09-26 15:27 | NUR ---
CM MET W BEDSIDE NURSE; ARLEY RN. STATES ORDER FOR [facility] WAS GIVEN TO JOSE; Tita PALLIATIVE, PER DR. MARTINEZ. EDUCATED TO PROCESS. NO ORDER HAD BEEN RECEIVED, BUT WAS ENTERED FOR HOSPICE EVAL BY DR. MARTINEZ. DISCUSSED W CHRISTA LOVELL. CHOICE LETTER WAS SIGNED BY SON AND COPY TO PT AND COPY WAS PLACED IN THE CHART.
--- NOTE | 2019-09-26 17:08 | Progress Note ---
DATE: 09/26/2019 Medicine Progress Note SUBJECTIVE: The patient is currently doing well. His son is at bedside, who is the medical power of estate attorney, in which I had a long discussion with him. He reports to me that his dad is pretty adamant about hospice. The patient also reported to me that he was interested in hospice. He does not want to be treated anymore. He understands that he has multiple comorbidities and he states that he has lived a good life and wants to go home on hospice. I spoke with the son at bedside as well as the palliative care nurse and the hospice services, and he was pretty clear with the son that his father wants hospice and we are working on hospice services for him at this moment. PHYSICAL EXAMINATION: VITAL SIGNS: Temperature is 96.6, pulse 87, respiratory rate is 20, blood pressure 100/77, and pulse ox 98% on room air. GENERAL: Not in acute distress. Alert and oriented x3. Cooperative on examination. HEENT: Head; normocephalic, atraumatic. Eyes; pupils are equal, round, and reactive to light bilaterally. Extraocular movements intact bilaterally. Throat; no evidence of erythema or exudates in the posterior pharynx. Has poor dentition. NECK: Supple. Good range of motion. PULMONARY: Clear to auscultation bilaterally. No wheezing, no rales, no rhonchi, no crackles appreciated. CARDIOVASCULAR: Positive S1 and S2. No murmurs, rubs, or gallops appreciated. ABDOMEN: Soft, nondistended, and nontender to palpation. Bowel sounds present. MUSCULOSKELETAL: Strength is 5/5 throughout. No evidence of any muscle deficits on examination. No weakness appreciated. NEUROLOGIC: Cranial nerves 2 through 12 grossly intact. No evidence of any neurological deficits on exam. SKIN: Intact. Warm to touch. Good cap refill. PSYCHIATRIC: Normal affect and mood. EXTREMITIES: No edema. LABORATORY FINDINGS: Show white count 8.5, hemoglobin 13, hematocrit is 39, and platelets of 123. Chemistry; sodium 133, potassium 3.8, chloride 96, bicarb 25, anion gap of 14, BUN is 62, and creatinine is 2.79. His calcium is 8.9. LFTs still elevated. Urinalysis none. ANGEL negative. Antimitochondrial antibody pending. Anti-smooth muscle antibody pending. MICROBIOLOGY: None. IMAGING STUDIES: The patient underwent ultrasound-guided thoracentesis today at approximately 1.6 L of fluid removed with repeat chest x-ray performed, found to be negative for any pneumothorax. IMPRESSION: 1. Acute exacerbation of congestive heart failure with systolic dysfunction with an EF of 15% to 20%. 2. Supratherapeutic INR. 3. History of chronic obstructive pulmonary disease. 4. Hypertension. 5. Elevated LFTs with elevated total bilirubin, likely secondary to congestive heart failure. 6. Acute kidney injury on chronic kidney disease, stage 4. 7. Pulmonary edema, status post thoracentesis performed today on 09/26/2019. PLAN: At this time, I had a long discussion with the patient's son at bedside, who is a medical power of estate attorney, in which palliative care was involved today. After further discussion, palliative care spoke with the family, and the patient and the family agreed to hospice services. The patient was referred to be adamant about his decision about hospice. Of note, we discussed this on yesterday, he states he just wants to go home. He understands he has multiple medical issues. He does not want to continue to have anymore treatment. He understands that he has lived a good life and he just wants to go home and rest comfortably and be with his family. At this time, I discussed this with the son at bedside including palliative care and the son voiced that his father was pretty clear about him going on hospice. At this time, we are waiting for the hospice company to come and talk to the family and arrange for things for home. Once he has been cleared, he is ready to go home. I already adjusted all his medications for home and the medications will be given accordingly based on the palliative care physician. I discussed this with the son at bedside including the patient with the nurse present and he verbalized understanding and agrees to plan of care. MD JENSEN Keith/KAVIN /[id number]
--- NOTE | 2019-09-26 18:43 | NUR ---
spoke with Dominic from [facility], he stated that hospice arrangements were set up and the patient could be discharged home whenever discharge orders were received. called Dr. Tran got no answer. waiting for call back
--- NOTE | 2019-09-26 20:00 | NUR ---
spoke with MD concerning discharge for patient. explained to MD that hospice has been set up for patient and patient is ok to be discharged home per hospice nurse. Called Yana to let her know of husbands discharge home.
--- NOTE | 2019-09-27 20:02 | Discharge Summary ---
FINAL DISCHARGE DIAGNOSES: 1. Acute exacerbation of congestive heart failure with systolic dysfunction. Ejection fraction of 15% to 20%. 2. Supratherapeutic INR. 3. History of chronic obstructive pulmonary disease. 4. Hypertension. 5. Elevated transaminases and elevated total bilirubin, likely secondary to hepatic congestion from heart failure. 6. Acute kidney injury on chronic kidney disease stage 3-4. 7. Pulmonary edema status post thoracentesis. 8. The patient discharged on hospice services as per patient and family's wishes. CONSULTANTS: Pulmonary, Cardiology. PHYSICAL EXAMINATION: VITAL SIGNS: Temperature is 96.1, pulse 96, respiratory rate is 18, blood pressure 108/84, pulse ox 97% on room air. LABORATORY FINDINGS: Show white count 8.5, hemoglobin 13, hematocrit 39, and platelets of 123. Coagulation PT 22, INR 1.83, PTT 33. Chemistry; sodium 132, potassium 3.8, chloride 96, bicarb 25, anion gap of 14, BUN 60, creatinine 2.79, calcium is 8.9, direct bilirubin 3.8, AST 227, ALT 209, alkaline phosphatase 93, ammonia level was 107, albumin 3.6 . Troponins were negative. Urinalysis negative. Pleural fluid negative. Immunology ANGEL negative. Antimitochondrial antibody less than 20. Anti-smooth muscle antibody is 18. Hepatitis panel was negative. Microbiology body fluid collection shows no growth was negative. Urine culture negative. IMAGING STUDIES: Chest CT shows moderate cardiomegaly with large simple right and small left pleural effusion and mild pulmonary interstitial edema. There is some calcification noted. Hepatic cirrhosis seen. Small volume ascites. Thoracentesis on 09/22/2019 shows removed 1.2 L of pleural fluid. Abdominal ultrasound shows evidence of liver cirrhosis. No focal mass. Chest x-ray shows no pneumothorax and status post right thoracentesis. There is a chest ultrasound shows moderate right pleural effusion that was performed on 09/23/2019. On 09/24/2019, additional ultrasound of the kidneys shows the right kidney 10.1 cm, left kidney 8.3 cm. There is a repeat thoracentesis on 09/26/2019, removed 1.6 L of fluid. Repeat chest x-ray thereafter shows no evidence of pneumothorax. HOSPITAL COURSE: An 84-year-old male, who was admitted under Dr. Gabe Womack, but he is now out of town . The patient was admitted for underlying shortness of breath needing further evaluation and management. Pulmonary and Cardiology were consulted. The patient was being treated for underlying acute exacerbation of congestive heart failure with diuretics. He is found to have a mildly elevated INR as well. Imaging studies consistent with pleural effusion prompting pulmonary consultation and undergoing thoracentesis on two occasions with fluid removal. The patient also found to have elevated transaminases and total bilirubin prompting GI consultation. After reviewing the imaging studies, it seems that the patient has underlying liver cirrhosis. The patient on multiple occasions during the hospital stay wanted to be discharged on hospice services. I did consult with palliative care and which they talked with the medical [id number], which was the son including other family members including the patient at bedside and he was pretty clear that he wanted to be on hospice services. The patient was awake, alert and oriented and understood that he has had multiple comorbidities. He has been in and out of the hospital over the last several weeks and months. He is happy with his life and he would like to go home with hospice to be comfortable. At this time, after talking to the family and talking to palliative care, the family understands and want to move forward with hospice services. The patient otherwise was cleared for discharge by all consultants as for towards hospice services. The patient was discharged on hospice as per patient and family's wishes. On the day of discharge, vital signs were stable, labs reviewed and stable. The patient is seen and evaluated, examined thoroughly on the day of discharge. No other complaints. The patient verbalized understanding and agreed to plan of care to follow up accordingly as an outpatient with primary care physician and continue to follow up with hospice services. In the event, if he changes his mind he could come back to the ER for further management and care. MEDICATIONS: See med reconciliation form. DISPOSITION: Home. CONDITION: Stable. DIET: Heart healthy. In the event of any worsening symptoms, the patient was advised to come back to the ED for further evaluation. Discharge summary took greater than 35 minutes. Once again, the patient was discharged home with hospice services as per patient's family's wishes. MD JENSEN Keith/KAVIN /[id number]
== END 2019-09-26 20:50 | disposition hospice, home (50) | DRG 291 ==
LOC: ER 04:49 → MED/SURG3 08:30
PROVIDERS: ADMIT Internal Medicine; ATTEND Internal Medicine
PROC: 0W993ZZ Drainage of Right Pleural Cavity, Percutaneous Approach (ICD-10-PCS; principal; 2019-09-22)
PROC: 0W993ZZ Drainage of Right Pleural Cavity, Percutaneous Approach (ICD-10-PCS; 2019-09-26)
DX: I13.0 Hypertensive heart and chronic kidney disease with heart failure and stage 1 through stage 4 chronic kidney disease, or unspecified chronic kidney disease (principal); I50.43 Acute on chronic combined systolic (congestive) and diastolic (congestive) heart failure; N17.9 Acute kidney failure, unspecified; D68.9 Coagulation defect, unspecified; N18.4 Chronic kidney disease, stage 4 (severe); J44.9 Chronic obstructive pulmonary disease, unspecified; K74.60 Unspecified cirrhosis of liver; I25.10 Atherosclerotic heart disease of native coronary artery without angina pectoris; I48.0 Paroxysmal atrial fibrillation; I25.2 Old myocardial infarction; N40.0 Benign prostatic hyperplasia without lower urinary tract symptoms; E79.0 Hyperuricemia without signs of inflammatory arthritis and tophaceous disease; R59.0 Localized enlarged lymph nodes; Z79.01 Long term (current) use of anticoagulants; Z51.5 Encounter for palliative care
CPT/HCPCS: 32555; 36415; 70450; 71045; 71250; 72125; 74470; 76604; 76700; 76770; 80048; 80053; 80076; 81001; 82103; 82140; 82390; 82550; 82553; 83615; 83735; 83880; 84132; 84157; 84484; 85014; 85018; 85025; 85610; 85730; 86039; 86255; 87070; 87086; 87205; 89051; 93005; 99284; G0378; J1940; J3430